=== PATIENT | female | born 1955 | race Caucasian/White ===

== ENCOUNTER 2016-07-16 10:56 | Outpatient (CLI) | payer BC | END 2016-07-16 10:57 | disposition home or self-care (01) | DX: I10 Essential (primary) hypertension (principal); E78.5 Hyperlipidemia, unspecified; E11.9 Type 2 diabetes mellitus without complications ==

== ENCOUNTER 2016-08-18 13:53 | Outpatient (CLI) | payer BC ==
[2016-08-18 19:29] LABS: ALBUMIN/GLOBULIN RATIO 1.2 (1.0-2.2); BILIRUBIN,TOTAL 0.7 mg/dL (0.2-1.0); CALCIUM 9.4 mg/dL (8.5-10.3); CREATININE 1.6 mg/dL (0.4-1.0); POTASSIUM 5.1 mmol/L (3.5-5.0); TOTAL PROTEIN 8.2 g/dL (6.7-8.2)
== END 2016-08-18 13:54 | disposition home or self-care (01) ==
LOC: LAB.N 13:53
PROVIDERS: ATTEND Nurse Practitioner Gerontology
DX: N19 Unspecified kidney failure (principal); E87.5 Hyperkalemia
CPT/HCPCS: 36415; 80053

== ENCOUNTER 2016-10-27 21:30 | Outpatient (CLI) | payer BC ==
[2016-10-27 13:25] LABS: CALCIUM 9.2 mg/dL (8.5-10.3); CREATININE 3.4 mg/dL (0.4-1.0); POTASSIUM 2.8 mmol/L (3.5-5.0)
== END 2016-10-27 21:31 | disposition home or self-care (01) ==
LOC: LAB.N 21:30
PROVIDERS: ATTEND Internal Medicine Nephrology
DX: N05.9 Unspecified nephritic syndrome with unspecified morphologic changes (principal); R06.2 Wheezing; I11.0 Hypertensive heart disease with heart failure
CPT/HCPCS: 36415; 80048; 83880

== ENCOUNTER 2016-11-20 09:34 | Outpatient (CLI) | payer BC ==
[2016-11-20 13:52] LABS: CALCIUM 9.3 mg/dL (8.5-10.3); POTASSIUM 3.9 mmol/L (3.5-5.0)
[2016-11-20 13:55] LABS: HEMOGLOBIN A1C 0.76 g/dL
[2016-11-25 21:52] LABS: TEST RESULT REPORT (())
[2016-11-25 22:41] LABS: ALPHA 1 GLOBULIN 0.5 g/dL (0.2-0.3); ALPHA 2 GLOBULIN 1.3 g/dL (0.5-0.9); BETA 1 GLOBULIN 0.6 g/dL (0.4-0.6); BETA 2 GLOBULIN 0.4 g/dL (0.2-0.5); GAMMA GLOBULIN 0.9 g/dL (0.8-1.7)
[2016-11-26 21:06] LABS: TEST RESULT REPORT (())
== END 2016-11-20 09:35 | disposition home or self-care (01) ==
LOC: LAB.N 09:34
PROVIDERS: ATTEND Internal Medicine Nephrology
DX: N05.9 Unspecified nephritic syndrome with unspecified morphologic changes (principal); E83.30 Disorder of phosphorus metabolism, unspecified; I50.9 Heart failure, unspecified; D47.2 Monoclonal gammopathy; E03.9 Hypothyroidism, unspecified; R80.9 Proteinuria, unspecified; E11.9 Type 2 diabetes mellitus without complications
CPT/HCPCS: 36415; 80048; 81599; 82306; 82570; 83036; 83880; 84155; 84156; 84165; 84166; 84443; 86334

== ENCOUNTER 2016-12-23 08:00 | Outpatient (CLI) | payer BC ==
[2016-12-23 19:35] LABS: CALCIUM 9.4 mg/dL (8.5-10.3); CREATININE 2.3 mg/dL (0.4-1.0); POTASSIUM 4.4 mmol/L (3.5-5.0)
== END 2016-12-23 08:01 | disposition home or self-care (01) ==
LOC: LAB.N 08:00
PROVIDERS: ATTEND Internal Medicine Nephrology
DX: N05.9 Unspecified nephritic syndrome with unspecified morphologic changes (principal)
CPT/HCPCS: 36415; 80048

== ENCOUNTER 2017-01-06 16:40 | Outpatient (CLI) | payer BC | END 2017-01-06 16:41 | disposition EMS.NT | LOC: EMS 16:40 | PROVIDERS: ATTEND Surgery | DX: R53.1 Weakness (principal); W06.XXXA Fall from bed, initial encounter; Y92.003 Bedroom of unspecified non-institutional (private) residence as the place of occurrence of the external cause ==

== ENCOUNTER 2017-03-19 11:26 | Outpatient (CLI) | payer BC ==
[2017-03-19 19:23] LABS: CALCIUM 9.6 mg/dL (8.5-10.3); CREATININE 2.4 mg/dL (0.4-1.0)
== END 2017-03-19 11:27 | disposition home or self-care (01) ==
LOC: LAB.N 11:26
PROVIDERS: ATTEND Internal Medicine Nephrology
DX: N05.9 Unspecified nephritic syndrome with unspecified morphologic changes (principal); I50.9 Heart failure, unspecified
CPT/HCPCS: 36415; 80048; 83880

== ENCOUNTER 2017-06-24 08:00 | Outpatient (CLI) | payer BC, OTHER ==
[2017-06-24 12:18] LABS: CREATININE 2.2 mg/dL (0.4-1.0)
[2017-06-24 12:37] LABS: HB2 TOTAL 13.4 g/dL; HEMOGLOBIN A1C 0.7 g/dL; HEMOGLOBIN A1C % 6.9 % (4.6-6.2)
== END 2017-06-24 08:01 | disposition home or self-care (01) ==
LOC: LAB.N 08:00
PROVIDERS: ATTEND Internal Medicine Nephrology
DX: N05.9 Unspecified nephritic syndrome with unspecified morphologic changes (principal); E11.9 Type 2 diabetes mellitus without complications
CPT/HCPCS: 36415; 80048; 83036

== ENCOUNTER 2017-11-08 08:00 | Outpatient (CLI) | payer OTHER ==
[2017-11-08 19:39] LABS: ALBUMIN 3.4 g/dL (3.2-5.5); ALBUMIN/GLOBULIN RATIO 0.7 (1.0-2.2); BILIRUBIN,TOTAL 0.9 mg/dL (0.2-1.0); CALCIUM 9.4 mg/dL (8.5-10.3); CREATININE 2.4 mg/dL (0.4-1.0); TOTAL PROTEIN 8.6 g/dL (6.7-8.2)
[2017-11-08 19:48] LABS: HB2 TOTAL 13.5 g/dL; HEMOGLOBIN A1C 0.68 g/dL; HEMOGLOBIN A1C % 6.8 % (4.6-6.2)
== END 2017-11-08 08:01 | disposition home or self-care (01) ==
LOC: LAB.N 08:00
PROVIDERS: ATTEND Nurse Practitioner Gerontology
DX: N19 Unspecified kidney failure (principal); E11.9 Type 2 diabetes mellitus without complications; I10 Essential (primary) hypertension
CPT/HCPCS: 36415; 80053; 82553; 83036

== ENCOUNTER 2017-12-29 13:40 | Outpatient (CLI) | payer OTHER ==
[2017-12-29 19:18] LABS: CREATININE 1.8 mg/dL (0.4-1.0)
[2017-12-29 19:28] LABS: CREATININE,URINE 191.8 mg/dL; PROTEIN/CREATININE RATIO,URINE 0.1 (<=0.2)
[2017-12-29 19:51] LABS: HB2 TOTAL 12.2 g/dL; HEMOGLOBIN A1C 0.61 g/dL; HEMOGLOBIN A1C % 6.7 % (4.6-6.2)
== END 2017-12-29 13:41 | disposition home or self-care (01) ==
LOC: LAB.N 13:40
PROVIDERS: ATTEND Internal Medicine Nephrology
DX: N05.9 Unspecified nephritic syndrome with unspecified morphologic changes (principal); E11.9 Type 2 diabetes mellitus without complications; R80.9 Proteinuria, unspecified
CPT/HCPCS: 36415; 80048; 82570; 83036; 84156

== ENCOUNTER 2018-04-18 08:43 | Outpatient (CLI) | payer OTHER | END 2018-04-18 08:44 | disposition EMS.NT | LOC: EMS 08:43 | PROVIDERS: ATTEND Surgery | DX: R53.1 Weakness (principal); M79.605 Pain in left leg; M79.604 Pain in right leg; W05.0XXA Fall from non-moving wheelchair, initial encounter; Y92.009 Unspecified place in unspecified non-institutional (private) residence as the place of occurrence of the external cause ==

== ENCOUNTER 2018-06-29 13:48 | Outpatient (CLI) | payer MEDICARE, OTHER ==
[2018-06-29 19:34] LABS: BUN - BLOOD UREA NITROGEN 36 mg/dL (6-20); CALCIUM 9.2 mg/dL (8.5-10.3); CARBON DIOXIDE - CO2 24 mmol/L (21-32); CHLORIDE 96 mmol/L (101-111); CHOL/HDL RATIO 5.5 (<4.4); CHOLESTEROL 204 mg/dL; CREATININE 2.1 mg/dL (0.4-1.0); GFR - MDRD 24 (>89); GLUCOSE 298 mg/dL (70-100); HDL CHOLESTEROL 37 mg/dL; LDL CHOLESTEROL,CALCULATED 140 mg/dL; LDL/HDL RATIO 3.8 (<4.4); SODIUM 132 mmol/L (135-145); VLDL CHOLESTEROL 27 mg/dL
[2018-06-29 19:38] LABS: HEMOGLOBIN A1C 0.71 g/dL; HEMOGLOBIN A1C % 6.8 % (4.6-6.2)
== END 2018-06-29 23:59 | disposition home or self-care (01) ==
LOC: LAB.N 13:48
PROVIDERS: ATTEND Internal Medicine Nephrology
DX: N05.9 Unspecified nephritic syndrome with unspecified morphologic changes (principal); E11.9 Type 2 diabetes mellitus without complications
CPT/HCPCS: 36415; 80048; 80061; 83036; 83721

== ENCOUNTER 2018-07-01 11:30 | Outpatient (CLI) | payer MEDICARE, OTHER | END 2018-07-01 23:59 | disposition home or self-care (01) | LOC: LAB.R 11:30 | PROVIDERS: ATTEND Podiatrist | DX: E11.622 Type 2 diabetes mellitus with other skin ulcer (principal) | CPT/HCPCS: 87070; 87181; 87205 ==

== ENCOUNTER 2018-07-19 07:56 | Outpatient (CLI) | payer MEDICARE | END 2018-07-19 07:57 | disposition critical access hospital (66) | LOC: EMS 07:56 | PROVIDERS: ATTEND Surgery | DX: R47.81 Slurred speech (principal); R53.1 Weakness | CPT/HCPCS: A0425; A0427 ==

== ENCOUNTER 2018-07-19 08:11 | Emergency (ER) | payer MEDICARE ==
--- NOTE | 2018-07-19 08:43 | ED Physician Documentation ---
PD HPI FOCAL NEURO - Stated complaint Stated Complaint: AMS/ LOW BLOOD SUGAR - Chief complaint Chief Complaint: Neuro - History obtained from History obtained from: Patient, EMS - History of Present Illness Timing - onset: Today (63-year-old woman with type 2 diabetes on a sliding scale regimen without long-acting insulin started having slurred speech and felt like she could not use her hands without altered mental status at 4 AM. EMS was summoned and found her blood sugar to be 40. After the administration of D50 all of her symptoms are gone. She took insulin at 930 last night and admits that she may have taken a larger dose than normal and ate less than normal. 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 - Present Medications Home Medications: Ambulatory Orders Medication Instructions Recorded Confirmed Glipizide [Glucotrol Xl] 10 mg PO BID 08/18/12 04/26/15 Ibuprofen [Motrin] 800 mg PO Q8H PRN #30 tablet 08/18/12 04/26/15 RX: Metoprolol Tartrate 100 mg PO BID 08/18/12 04/26/15 Bimatoprost 0.01% Ophth Dops 1 drops EACHEYE DAILY 04/26/15 04/26/15 [Lumigan 0.01% Ophth Drops] Brimonidine 0.1% Ophth Drops 1 drops OPTH BID 04/26/15 04/26/15 [Alphagan P 0.1% Ophth Drops] Excedrin 500 mg PO Q4H 04/26/15 04/26/15 Glucosam/Chondr-MSM#6/Manganes 2 each PO DAILY 04/26/15 04/26/15 [Glucosamine-Chondroitin Sftgl] Multivitamin [Multivitamins] 1 each PO DAILY 04/26/15 04/26/15 Insulin Aspart (Vial) [NovoLOG] 8 - 10 unit SQ TIDWM 05/29/15 05/29/15 Insulin Glargine,Hum.rec.anlog 80 unit SQ DAILY 05/29/15 05/29/15 [Toujeo Solostar] oxyCODONE/ACET 5/325 [Percocet 5 1 each PO Q4-6H 07/19/18 07/19/18 mg/325 mg] - Allergies Allergies/Adverse Reactions: Allergies Allergy/AdvReac Type Severity Reaction Status Date / Time No Known Drug Allergies Allergy Verified 07/19/18 08:19 - Social History Does the pt smoke?: No Smoking Status: Never smoker Does the pt drink ETOH?: No Does the pt have substance abuse?: No PD ED PE NORMAL - Vitals Vital signs reviewed: Yes - General General: Alert and oriented X 3, No acute distress - HEENT HEENT: PERRL, EOMI - Neck Neck: Supple, no meningeal sign, No bony TTP - Cardiac Cardiac: RRR, No murmur - Respiratory Respiratory: No respiratory distress, Clear bilaterally - Abdomen Abdomen: Non tender - Back Back: No CVA TTP, No spinal TTP - Derm Derm: Normal color, Warm and dry - Extremities Extremities: No edema, No calf tenderness / cord, Other (There is a dime sized heel ulcer on the right foot with purulent base but no cellulitis that is being treated by 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, she requested a culture be done and this was sent.) - Neuro Neuro: Alert and oriented X 3, supervisor 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 2-12 intact, Normal speech NIHSS - Time Time: 08:35 - Level of Consciousness Level of consciousness: (0) Alert, Keenly responsive LOC Questions: (0) Answers both Q's correct LOC Commands: (0) Performs both correctly - Gaze Best Gaze: (0) Normal - Visual Visual: (0) No loss - Facial Palsy Facial Palsy: (0) Normal, symmetrical movement - Motor Arms (both separate) Motor Arm (right): (0) No drift Motor Arm (left): (0) No drift - Motor Legs (both separate) Motor Leg (right): (0) No drift Motor Leg (left): (0) No drift - Limb Ataxia Limb Ataxia: (0) Absent - Sensory Sensory: (0) Normal - Best Language Best Language: (0) No aphasia - Dysarthria Dysarthria: (0) Normal - Extinction and Inattention (formally neg Extinction and inattention: (0) No abnormality - Total Score/Results Total Score/Result: 0 Results - Vitals Vitals: Vital Signs - 24 hr 07/19/18 07/19/18 07/19/18 08:15 09:11 10:19 Temperature 35.7 C L 36.2 C L Heart Rate 80 72 77 Respiratory 21 15 15 Rate Blood Pressure 171/51 H 149/94 H 142/85 H O2 Saturation 91 L 100 100 Oxygen O2 Source Room air - EKG (time done) 0817 Rate: Rate (enter#) (69) Rhythm: NSR [place]: Normal Intervals: Normal [place] QRS: LVH Ischemia: Normal ST segments Computer interpretation: Agree with computer PD MEDICAL DECISION MAKING - ED course ED course: 63-year-old woman presents after a hypoglycemic episode. She is improved and stable on arrival with a normal. She ate breakfast here and was observed without further episodes of hypoglycemia. Departure - Departure Disposition: 01 Home, Self Care Clinical Impression: Hypoglycemia Condition: Good Record reviewed to determine appropriate education?: Yes Instructions: ED Diabetes Hypoglycemia Insulin React Comments: Keep close track of your blood sugars today and eat well. Follow-up with your doctor, next available appointment, also your die welder. Let Dr. Merino know that we did a culture of your right heel today, the results should be done in 48 to 72 hours. Discharge Date/Time: 07/19/18 10:20
[2018-07-19 10:20] VITALS: BP 142/85
== END 2018-07-19 10:20 | disposition home or self-care (01) ==
LOC: EDUNIT# → ED 08:11
DX: E11.649 Type 2 diabetes mellitus with hypoglycemia without coma (principal); L97.418 Non-pressure chronic ulcer of right heel and midfoot with other specified severity; I10 Essential (primary) hypertension; Z79.4 Long term (current) use of insulin
CPT/HCPCS: 87070; 87205; 93005; 99284

== ENCOUNTER 2019-01-04 15:09 | Outpatient (CLI) | payer MEDICARE, OTHER ==
[2019-01-04 19:12] LABS: HGB - HEMOGLOBIN 13.1 g/dL (12.0-16.0); MEAN CORPUSCULAR HEMOGLOBIN 27.2 pg (27.0-31.0); MEAN CORPUSCULAR VOLUME 87.6 fL (81.0-99.0); MEAN PLATELET VOLUME 9.4 fL (7.9-10.8); RED BLOOD COUNT 4.82 10^6/uL (4.20-5.40); RED CELL DISTRIBUTION WIDTH 14.4 % (12.0-15.0); WHITE BLOOD COUNT 10.2 x10^3/uL (4.8-10.8)
[2019-01-04 19:35] LABS: HB2 TOTAL 13.7 g/dL; HEMOGLOBIN A1C 0.69 g/dL; HEMOGLOBIN A1C % 6.8 % (4.6-6.2)
[2019-01-04 19:51] LABS: CREATININE,URINE 73.6 mg/dL; PROTEIN/CREATININE RATIO,URINE 0.3 (<=0.2)
[2019-01-04 19:56] LABS: BUN - BLOOD UREA NITROGEN 39 mg/dL (6-20); CHOL/HDL RATIO 3.2 (<4.4); CHOLESTEROL 117 mg/dL; GFR - MDRD 25 (>89); HDL CHOLESTEROL 37 mg/dL; LDL CHOLESTEROL,CALCULATED 52 mg/dL; LDL/HDL RATIO 1.4 (<4.4); VLDL CHOLESTEROL 28 mg/dL
[2019-01-04 20:16] LABS: CALCIUM 9.4 mg/dL (8.5-10.3); CARBON DIOXIDE - CO2 26 mmol/L (21-32); CHLORIDE 95 mmol/L (101-111); GLUCOSE 252 mg/dL (70-100); SODIUM 135 mmol/L (135-145)
== END 2019-01-04 23:59 | disposition home or self-care (01) ==
LOC: LAB.N 15:09
PROVIDERS: ATTEND Internal Medicine Nephrology
DX: N05.9 Unspecified nephritic syndrome with unspecified morphologic changes (principal); D70.9 Neutropenia, unspecified; D63.1 Anemia in chronic kidney disease; R80.9 Proteinuria, unspecified; E11.9 Type 2 diabetes mellitus without complications; E78.00 Pure hypercholesterolemia, unspecified
CPT/HCPCS: 36415; 80048; 80061; 82570; 83036; 83721; 84156; 85027

== ENCOUNTER 2019-09-13 07:00 | Outpatient (CLI) | payer MEDICARE, OTHER ==
[2019-09-13 19:03] LABS: HB2 TOTAL 12.5 g/dL; HEMOGLOBIN A1C 0.62 g/dL; HEMOGLOBIN A1C % 6.7 % (4.6-6.2)
[2019-09-13 19:09] LABS: CALCIUM 9.5 mg/dL (8.5-10.3); CREATININE 2.2 mg/dL (0.4-1.0)
[2019-09-15 16:54] LABS: ANA SCREEN NEGATIVE (NEGATIVE)
== END 2019-09-13 23:59 | disposition home or self-care (01) ==
LOC: LAB.WCP 07:00
PROVIDERS: ATTEND Internal Medicine Nephrology
DX: L93.2 Other local lupus erythematosus (principal); E11.9 Type 2 diabetes mellitus without complications; N05.9 Unspecified nephritic syndrome with unspecified morphologic changes; N19 Unspecified kidney failure
CPT/HCPCS: 36415; 80048; 83036; 86038

== ENCOUNTER 2019-12-20 06:25 | Outpatient (CLI) | payer MEDICARE, OTHER | END 2019-12-20 06:26 | disposition critical access hospital (66) | LOC: EMS 06:25 | PROVIDERS: ATTEND Surgery | DX: R53.1 Weakness (principal) | CPT/HCPCS: A0425; A0429 ==

== ENCOUNTER 2019-12-20 06:44 | Inpatient (IN) | payer MEDICARE, OTHER ==
--- NOTE | 2019-12-20 07:23 | ED Physician Documentation ---
History of Present Illness - Stated complaint Stated Complaint: WEAKNESS - Chief complaint Chief Complaint: General - History obtained from History obtained from: Patient, EMS - Additonal information Additional information: 64-year-old woman with history of diabetes, hyperlipidemia, chronic osteoarthritic and neuropathic pain. She lives alone, sometimes has to use a walker, sometimes not. She says she frequently gets bouts of weakness, she does not know what causes them. They happen every few weeks. Over the last week she has been increasingly weak, and last night it culminated in being unable to get off the floor by herself. Paramedics were summoned and brought her to the ER. She says she frequently has to call paramedics for a lift assist, but once they get her back up on her feet she does okay. This time was different, being worse than normal. She denies any acute pain, just her chronic issues, no fevers, cough, urinary complaints. 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 - Present Medications Home Medications: Ambulatory Orders Medication Instructions Recorded Confirmed Glipizide [Glucotrol Xl] 10 mg PO BID 08/18/12 04/26/15 Ibuprofen [Motrin] 800 mg PO Q8H PRN #30 tablet 08/18/12 04/26/15 Metoprolol Tartrate 100 mg PO BID 08/18/12 04/26/15 Bimatoprost 0.01% Ophth Dops 1 drops EACHEYE DAILY 04/26/15 04/26/15 [Lumigan 0.01% Ophth Drops] Brimonidine 0.1% Ophth Drops 1 drops OPTH BID 04/26/15 04/26/15 [Alphagan P 0.1% Ophth Drops] Excedrin 500 mg PO Q4H 04/26/15 04/26/15 Glucosam/Chondr-Msm6/Manganese 2 each PO DAILY 04/26/15 04/26/15 [Glucosamine-Chondroitin Sftgl] Multivitamin [Multivitamins] 1 each PO DAILY 04/26/15 04/26/15 Insulin Aspart (Vial) [NovoLOG] 8 - 10 unit SQ TIDWM 05/29/15 05/29/15 Insulin Glargine,Hum.rec.anlog 80 unit SQ DAILY 05/29/15 05/29/15 [Toujeo Solostar] oxyCODONE/ACET 5/325 [Percocet 5 1 each PO Q4-6H 07/19/18 07/19/18 mg/325 mg] - Allergies Allergies/Adverse Reactions: Allergies Allergy/AdvReac Type Severity Reaction Status Date / Time No Known Drug Allergies Allergy Verified 07/19/18 08:19 - Social History Does the pt smoke?: No Smoking Status: Never smoker Does the pt drink ETOH?: No Does the pt have substance abuse?: No PD ED PE NORMAL - Vitals Vital signs reviewed: Yes - General General: Alert and oriented X 3, No acute distress - HEENT HEENT: PERRL, EOMI - Neck Neck: Supple, no meningeal sign, No bony TTP - Cardiac Cardiac: Other - Respiratory Respiratory: No respiratory distress, Clear bilaterally - Abdomen Abdomen: Non tender - Back Back: No CVA TTP, No spinal TTP - Derm Derm: Normal color, Warm and dry - Neuro Neuro: Alert and oriented X 3, No motor deficit, No sensory deficit, Normal speech Eye Opening: Spontaneous Motor: Obeys Commands Verbal: Oriented GCS Score: 15 - Psych Psych: Normal mood, Normal affect Results - Vitals Vitals: Vital Signs - 24 hr 12/20/19 12/20/19 12/20/19 06:57 07:34 07:56 Temperature 99.8 C H 37.5 C 38.4 C H Heart Rate 106 H 101 H Respiratory 24 22 Rate Blood Pressure 155/59 H 139/66 H O2 Saturation 99 100 12/20/19 09:05 Temperature 38.3 C H Heart Rate 95 Respiratory 20 Rate Blood Pressure 133/55 H O2 Saturation 100 Oxygen O2 Source Room air - Labs Labs: Laboratory Tests 12/20/19 12/20/19 12/20/19 07:47 07:47 07:47 WBC 13.1 H RBC 3.73 L Hgb 9.5 L Hct 31.6 L MCV 84.7 MCH 25.5 L MCHC 30.1 L RDW 16.4 H Plt Count 465 H MPV 8.8 Neut # (Auto) 11.7 H Lymph # (Auto) 0.5 L [place] # (Auto) 0.7 Eos # (Auto) 0.0 Baso # (Auto) 0.1 Absolute Nucleated RBC 0.00 Nucleated RBC % 0.0 Sodium 134 L Potassium 4.2 Chloride 92 L Carbon Dioxide 25 Anion Gap 17.0 H BUN 40 H Creatinine 2.0 H Estimated GFR (MDRD) 25 L Glucose 303 H Lactic Acid 1.6 Calcium 9.3 Total Bilirubin 1.5 H AST 14 ALT 10 Alkaline Phosphatase 99 Total Protein 8.7 H Albumin 3.4 Globulin 5.3 H Albumin/Globulin Ratio 0.6 L Urine Color Urine Clarity Urine pH Ur Specific [place] Urine Protein Urine Glucose (UA) Urine Ketones Urine Occult Blood Urine Nitrite Urine Bilirubin Urine Urobilinogen Ur Leukocyte Esterase Urine RBC Urine WBC Ur Squamous Epith Cells Amorphous Sediment Urine Bacteria Urine Culture Comments 12/20/19 08:35 WBC RBC Hgb Hct MCV MCH MCHC RDW Plt Count MPV Neut # (Auto) Lymph # (Auto) [place] # (Auto) Eos # (Auto) Baso # (Auto) Absolute Nucleated RBC Nucleated RBC % Sodium Potassium Chloride Carbon Dioxide Anion Gap BUN Creatinine Estimated GFR (MDRD) Glucose Lactic Acid Calcium Total Bilirubin AST ALT Alkaline Phosphatase Total Protein Albumin Globulin Albumin/Globulin Ratio Urine Color YELLOW Urine Clarity CLEAR Urine pH 5.0 Ur Specific [place] 1.020 Urine Protein TRACE Urine Glucose (UA) 250 H Urine Ketones TRACE Urine Occult Blood SMALL H Urine Nitrite NEGATIVE Urine Bilirubin NEGATIVE Urine Urobilinogen 0.2 (NORMAL) Ur Leukocyte Esterase NEGATIVE Urine RBC 0-5 Urine WBC 0-3 Ur Squamous Epith Cells RARE Squamous Amorphous Sediment Few Urine Bacteria Few Urine Culture Comments NOT INDICATED - Rads (name of study) 1v chest Radiology: EMP read contemporaneously (NAD) PD MEDICAL DECISION MAKING - ED course ED course: 64-year-old woman presents with generalized weakness. Found to have chronic renal insufficiency, elevated white blood cell count and developed a fever in the department but without source. No abdominal tenderness, no urine findings, clear chest x-ray. Case presented to Dr. Decker for admission at 9 AM. At this point she is not septic, there is no source. She is not in shock. We will hold antibiotics. We will check a COVID. Departure - Departure Disposition: ED Place in Observation Clinical Impression: Muscle weakness, SIRS (systemic inflammatory response syndrome) Anemia Qualifiers: Anemia type: unspecified type Qualified Code(s): D64.9 - Anemia, unspecified CRI (chronic renal insufficiency) Qualifiers: Chronic kidney disease stage: stage 4 (severe) Qualified Code(s): N18.4 - Chronic kidney disease, stage 4 (severe) Condition: Stable
[2019-12-20 07:53] LABS: BASOPHILS # (AUTO) 0.1 10^3/uL (0.0-0.1); BASOPHILS % (AUTO) 0.5 %; HGB - HEMOGLOBIN 9.5 g/dL (12.0-16.0); LYMPHOCYTES # (AUTO) 0.5 10^3/uL (1.5-3.5); LYMPHOCYTES % (AUTO) 4.1 %; MEAN CORPUSCULAR HEMOGLOBIN 25.5 pg (27.0-31.0); MEAN CORPUSCULAR HGB CONC 30.1 g/dL (32.0-36.0); MEAN CORPUSCULAR VOLUME 84.7 fL (81.0-99.0); MEAN PLATELET VOLUME 8.8 fL (7.9-10.8); MONOCYTES # (AUTO) 0.7 10^3/uL (0.0-1.0); MONOCYTES % (AUTO) 5.4 %; NEUTROPHILS # (AUTO) 11.7 10^3/uL (1.5-6.6); NEUTROPHILS % (AUTO) 89.4 %; PLT - PLATELET COUNT 465 10^3/uL (130-450); RED BLOOD COUNT 3.73 10^6/uL (4.20-5.40); RED CELL DISTRIBUTION WIDTH 16.4 % (12.0-15.0); WHITE BLOOD COUNT 13.1 x10^3/uL (4.8-10.8)
[2019-12-20 08:04] LABS: ALBUMIN 3.4 g/dL (3.2-5.5); ALBUMIN/GLOBULIN RATIO 0.6 (1.0-2.2); BILIRUBIN,TOTAL 1.5 mg/dL (0.2-1.0); CALCIUM 9.3 mg/dL (8.5-10.3); TOTAL PROTEIN 8.7 g/dL (6.7-8.2)
--- NOTE | 2019-12-20 08:06 | XRAY Report ---
PROCEDURE: Chest 1 View X-Ray INDICATIONS: weak TECHNIQUE: One view of the chest was acquired. COMPARISON: No previous study is available for comparison. FINDINGS: Surgical changes and devices: None. Lungs and pleura: No pleural effusions or pneumothorax. Lungs are clear. Mediastinum: Mediastinal contours appear normal. Heart size is normal. Bones and chest wall: No suspicious bony lesions. Overlying soft tissues appear unremarkable. IMPRESSION: No acute cardiopulmonary abnormality is seen. Reviewed by: Kingsley Toledo MD on 12/20/2019 8:04 AM PDT Approved by: Kingsley Toledo MD on 12/20/2019 8:04 AM PDT Station ID: [id number]
[2019-12-20 08:45] LABS: GLUCOSE, URINE (UA) 250 mg/dL (NEGATIVE); KETONES,URINE (UA) TRACE mg/dL (NEGATIVE); LEUKOCYTE ESTERASE, URINE NEGATIVE (NEGATIVE); NITRITE,URINE NEGATIVE (NEGATIVE); OCCULT BLOOD,URINE SMALL (NEGATIVE); PROTEIN,URINE TRACE mg/dL (NEGATIVE); UROBILINOGEN,URINE 0.2 (NORMAL) E.U./dL (NORMAL)
[2019-12-20 08:46] LABS: CLARITY,URINE CLEAR (CLEAR)
[2019-12-20 08:50] LABS: BILIRUBIN,URINE NEGATIVE (NEGATIVE); ICTOTEST,URINE NEGATIVE
[2019-12-20 08:55] LABS: RBC,URINE 0-5 /HPF (0-5); SQUAMOUS EPITHELIAL CELL,UR RARE Squamous (<= Few)
[2019-12-20 08:56] LABS: AMORPHOUS SEDIMENT,UR Few /LPF; BACTERIA,URINE Few /HPF (None Seen)
[2019-12-20] MEDS ORDERED: SODIUM CHLORIDE FLUSH 0.9% 10 ML SYRINGE IVP PRN (09:09)
[2019-12-20] MEDS ORDERED: ONDANSETRON 4 MG/2 ML VIAL IVP PRN (09:14)
[2019-12-20] MEDS ORDERED: LACTATED RINGERS 1,000 ML IV ONE (09:21)
--- NOTE | 2019-12-20 09:23 | HISTORY & PHYSICAL EXAMINATION ---
Chief Complaint - Chief Complaint Chief Complaint: Weakness History of Present Illness - Admitted From Admitted From:: Home - History Obtained From Records Reviewed: Yes History obtained from: Patient, ER Physician, EMR - History of Present Illness HPI Comment/Other: This is a very pleasant 64-year-old female with a past medical history significant for insulin-dependent diabetes, hypertension, peripheral neuropathy, chronic kidney disease stage IV, glaucoma who presents today complaining of lower extremity weakness. She states this is been going on for the past few months intermittently. The episodes would normally lasts a few days and then she would return back to her usual strength. She states this would normally occur once every 2 months or so. Today she felt more weak than normal and was unable to get herself out of bed. She would normally call paramedics for assistance and once they would help her get up then she would do well on her own but today she was much weaker than usual. She reports muscle weakness in her bilateral lower extremities. She states she walks with a walker at baseline. She does have chronic neuropathy for which she takes Lyrica. She reports this is not worse than usual. She reports no dysuria, urgency, frequency. She denies any fevers or chills. Reports no chest pain, dyspnea, cough. Reports no recent sick contacts. She states she has been home for the past few months and she has a cousin who will deliver her food every 6 weeks. She last saw her cousin about 3 weeks ago. She reports no obvious wounds or lesions. In the emergency department, she was found to be febrile with a temperature of 38.4 C. Her heart is 101. Her blood pressure is 139/66. She was not tachypneic and saturating well on room air. Labs were significant for a white count of 13.1 with a left shift. Her hemoglobin was 9.5. Her creatinine was at 2.0 which is her baseline. Her lactic acid was normal at 1.6. Her urinalysis and chest x-ray were unremarkable. Given her weakness and fever, medicine was consulted for admission. I did discuss goals of care with the patient and she would like to be a DNR. History - Past Medical History Cardiovascular: reports: Hypertension, High cholesterol Respiratory: reports: None Neuro: reports: Peripheral neuropathy Endocrine/Autoimmune: reports: Type 2 diabetes GI: reports: None CATCHER PLUG: reports: None : reports: Renal insuffiency, Kidney stones HEENT: reports: Glaucoma Musculoskeletal: reports: Osteoarthritis Derm: reports: None MRSA Hx?: No - Past Surgical History /CATCHER PLUG: reports: Oophrectomy - Family & Social History Family History Comment/Other: She reports her father had rheumatoid arthritis. Living arrangement: At home Living Situation: Alone Social History Notes: She lives at home alone. He has never smoked and does not drink alcohol. She has a cousin who will visit her every 6 weeks to drop off groceries and food. - POLST Patient has POLST: No Meds/Allgy - Home Medications Home Medications: Ambulatory Orders Medication Instructions Recorded Confirmed Glipizide [Glucotrol Xl] 10 mg PO BID 08/18/12 12/20/19 Ibuprofen [Motrin] 800 mg PO Q8H PRN #30 tablet 08/18/12 04/26/15 Metoprolol Tartrate 100 mg PO BID 08/18/12 04/26/15 Brimonidine 0.1% Ophth Drops 1 drops OPTH BID 04/26/15 12/20/19 [Alphagan P 0.1% Ophth Drops] Excedrin 2 tab PO BID 04/26/15 12/20/19 Glucosam/Chondr-Msm6/Manganese 2 each PO DAILY 04/26/15 04/26/15 [Glucosamine-Chondroitin Sftgl] Multivitamin [Multivitamins] 1 each PO DAILY 04/26/15 04/26/15 Insulin Aspart (Vial) [NovoLOG] 8 - 10 unit SQ TIDWM 05/29/15 12/20/19 Insulin Glargine,Hum.rec.anlog 80 unit SQ DAILY 05/29/15 05/29/15 [Toujeo Solostar] oxyCODONE/ACET 5/325 [Percocet 5 1 each PO Q4-6H 07/19/18 12/20/19 mg/325 mg] Atorvastatin Calcium 20 mg PO DAILY PM 12/20/19 12/20/19 Dorzolamide HCl/Pf [Dorzolamide 2% 1 drops OP BID 12/20/19 12/20/19 Eye Drop] Doxylamine Succinate [Unisom] 25 mg PO DAILY PM 12/20/19 12/20/19 Furosemide 40 mg PO TID 09/30/20 09/30/20 Latanoprost 1 drops OP DAILY PM 12/20/19 12/20/19 Pregabalin 25 mg PO BID 12/20/19 12/20/19 - Allergies Allergies/Adverse Reactions: Allergies Allergy/AdvReac Type Severity Reaction Status Date / Time No Known Drug Allergies Allergy Verified 07/19/18 08:19 Prior Level of Functionality: She uses a walker to ambulate. She is relatively independent with her ADLs. She does have assistance with delivery of groceries to her house. Exam - Vital Signs Reviewed Vital Signs: Yes Vital Signs: Vital Signs x48h Temp Pulse Resp BP Pulse Ox 12/20/19 09:05 38.3 C H 95 20 133/55 H 100 12/20/19 07:56 38.4 C H 101 H 22 139/66 H 100 12/20/19 07:34 37.5 C 12/20/19 06:57 99.8 C H 106 H 24 155/59 H 99 - Physical Exam General Appearance: positive: No acute distress, Alert Eyes Bilateral: positive: Normal inspection, No scleral icterus ENT: positive: ENT inspection nml, Pharynx nml. negative: Pharyngeal erythema Neck: positive: Nml inspection Respiratory: positive: No respiratory distress. negative: Wheezes, Rales Cardiovascular: positive: Regular rate & rhythm. negative: Irregularly irregular, Tachycardia, Systolic murmur Abdomen: positive: Non-tender, No distention, Other (Multiple healed scars noted over abdomen. No obvious erythema.). negative: Tenderness, Guarding, Rebound Skin: positive: Warm, Dry, Other (There is some mild erythema in her suprapubic fold consistent with a candidal infection.) Extremities: positive: Full ROM, Pedal edema (Trace edema in bilateral lower extremities.) Neurologic/Psychiatric: positive: Oriented x3, Other (He is able to move all 4 extremities. No obvious focal deficits. Her lower extremity movement is limited secondary to pain.). negative: Disoriented to person, Disoriented to place, Disoriented to time Conclusion/Plan - Problem List (1) Fever Conclusion/Plan: Do not feel febrile at home but she is febrile here in the hospital and her white count is slightly elevated. Her lactic acid is normal. Her urinalysis and chest x-ray are unremarkable. There is been no obvious source of infection so we will hold off antibiotics for the meantime. Suspect this is likely contributing to her weakness. We will monitor her fever curve and monitor her white count. We will check her for COVID-19 and influenza. If she spikes another fever we will start her on empiric antibiotics. Follow-up blood cultures. (2) Weakness Conclusion/Plan: This appears to be predominantly lower extremity weakness but do not suspect this is neurologic in nature based off of exam. This likely related to her fever and possible infection. We will encourage her to get up out of bed 3 times a day. Will consult physical therapy if it is felt necessary. We will check CKs to rule out myositis. We will hold off on imaging for the time being unless he develops any neurologic deficits. Check troponin. (3) Chronic kidney disease, stage IV (severe) Conclusion/Plan: Her renal function is stable and at baseline. This is likely secondary to her diabetes. She follows with Dr. Sweet of nephrology. (4) Insulin dependent diabetes mellitus Conclusion/Plan: Blood glucose elevated at greater than 200. We will resume her home insulin dose once it is confirmed by pharmacy. We will place her on sliding scale and carb controlled diet. Check A1c in the morning. (5) Anemia of chronic disease Conclusion/Plan: This is likely anemia of chronic disease. There is no evidence of bleeding. Will check iron studies and ferritin. Monitor hemoglobin. (6) Peripheral neuropathy Conclusion/Plan: This appears be stable and at baseline. We will continue her home Lyrica and Percocet. (7) Glaucoma Conclusion/Plan: Stable. Continue home eyedrops. - Lab Results Lab results reviewed: Yes Fish Bones: 12/20/19 07:47 12/20/19 07:47 - Diagnostic Imaging Results Diagnostic Imaging Results: positive: Final report reviewed Core Measures - Anticipated LOS I expect patient to be DC'd or transferred within 96 hours.: Yes - Issues Hospital Issues and Management Plan: This 64-year-old female presents with weakness found to have a fever. No obvious source of infection at this time. Will place in observation for further infectious work-up. - DVT/VTE - Prophylaxis VTE/DVT Prophylaxis med ordered at admit?: Yes
[2019-12-20 10:02] LABS: % IRON SATURATION 5 % (20-50); CK- CREATINE KINASE 64 IU/L (22-269); IRON 13 ug/dL (28-170); TOTAL IRON BINDING CAPACITY 260 ug/dL (250-450); TRANSFERRIN 186 mg/dL (192-382)
[2019-12-20 10:27] LABS: THYROID STIMULATING HORMONE 1.59 uIU/mL (0.34-5.60)
[2019-12-20 10:33] LABS: FERRITIN 356.8 ng/mL (11.0-306.8)
[2019-12-20] MEDS: INSULIN ASPART 300 UNIT/3 ML PEN SUBQ SCH ×3 (11:47→21:02)
[2019-12-20] MEDS: LACTATED RINGERS 1,000 ML IV SCH ×2 (11:49→22:03)
[2019-12-20] MEDS: NYSTATIN POWDER 15 GM TOP SCH ×2 (14:35→20:48)
[2019-12-20] MEDS ORDERED: oxyCODONE/ACET 5/325 Prepack 4 PO PRN (14:49)
[2019-12-20] MEDS ORDERED: oxyCODONE 5 MG TABLET PO PRN (14:58)
[2019-12-20] MEDS: oxyCODONE 5 MG TABLET PO PRN ×2 (15:07→22:03)
[2019-12-20] MEDS: ACETAMINOPHEN 325 MG TABLET PO PRN ×2 (15:08→22:03)
[2019-12-20] MEDS: SODIUM CHLORIDE FLUSH 0.9% 10 ML SYRINGE IVP SCH (17:00)
[2019-12-20] MEDS ORDERED: INSULIN REGULAR HUMAN 100 UNIT/1 ML 10 ML MDV SUBQ STA (18:31)
[2019-12-20] MEDS: HEPARIN 5,000 UNIT/ML VIAL SUBQ SCH (20:47)
[2019-12-20] MEDS: ATORVASTATIN 10 MG TABLET PO SCH (20:48)
[2019-12-20] MEDS: PREGABALIN 25 MG CAPSULE PO SCH (20:49)
[2019-12-20] MEDS: BRIMONIDINE 0.15% OPHTH DROPS 5 ML EACHEYE SCH (20:52)
[2019-12-20] MEDS: DORZOLAMIDE 2% OPHTH DROPS EACHEYE SCH (20:52)
[2019-12-20] MEDS: LATANOPROST 0.005% EACHEYE SCH (20:53)
[2019-12-21] MEDS: SODIUM CHLORIDE FLUSH 0.9% 10 ML SYRINGE IVP SCH ×3 (01:30→16:09)
[2019-12-21 05:26] LABS: BASOPHILS % (AUTO) 0.4 %; EOSINOPHILS # (AUTO) 0.1 10^3/uL (0.0-0.7); EOSINOPHILS % (AUTO) 1.3 %; HGB - HEMOGLOBIN 7.6 g/dL (12.0-16.0); LYMPHOCYTES # (AUTO) 1.4 10^3/uL (1.5-3.5); MEAN CORPUSCULAR HEMOGLOBIN 25.4 pg (27.0-31.0); MEAN CORPUSCULAR VOLUME 84.6 fL (81.0-99.0); MEAN PLATELET VOLUME 9.2 fL (7.9-10.8); MONOCYTES # (AUTO) 0.9 10^3/uL (0.0-1.0); MONOCYTES % (AUTO) 8.7 %; NEUTROPHILS # (AUTO) 7.5 10^3/uL (1.5-6.6); PLT - PLATELET COUNT 384 10^3/uL (130-450); RED BLOOD COUNT 2.99 10^6/uL (4.20-5.40); RED CELL DISTRIBUTION WIDTH 16.8 % (12.0-15.0)
[2019-12-21 05:37] LABS: CALCIUM 8.7 mg/dL (8.5-10.3); CREATININE 1.6 mg/dL (0.4-1.0); PHOSPHORUS 2.9 mg/dL (2.5-4.6)
[2019-12-21] MEDS: HEPARIN 5,000 UNIT/ML VIAL SUBQ SCH ×2 (09:54→21:04)
[2019-12-21] MEDS: ACETAMINOPHEN 325 MG TABLET PO PRN ×2 (10:19→17:17)
[2019-12-21] MEDS: oxyCODONE 5 MG TABLET PO PRN ×2 (10:20→17:17)
[2019-12-21] MEDS: FERROUS SULFATE 325 MG TABLET PO SCH (10:20)
[2019-12-21] MEDS: PREGABALIN 25 MG CAPSULE PO SCH ×2 (10:21→21:01)
[2019-12-21] MEDS: INSULIN ASPART 300 UNIT/3 ML PEN SUBQ SCH ×5 (10:24→21:05)
[2019-12-21] MEDS: BRIMONIDINE 0.15% OPHTH DROPS 5 ML EACHEYE SCH (10:25)
[2019-12-21] MEDS: NYSTATIN POWDER 15 GM TOP SCH ×2 (10:25→21:06)
[2019-12-21] MEDS: DORZOLAMIDE 2% OPHTH DROPS EACHEYE SCH (10:26)
[2019-12-21] MEDS: LACTATED RINGERS 1,000 ML IV SCH ×2 (10:41→21:01)
--- NOTE | 2019-12-21 12:03 | PHARMACY PROGRESS NOTE ---
- Best Possible Medication History Admit Date and Time: 12/20/19908 Processed by: Pharmacy Medication History completed: Yes Patient Interview: Completed Secondary Source(s): Physician records (PATIENT INTERVIEWED BY PHARMACY. PATIENT ABLE TO CONFIRM HOME MEDICATIONS ), Pharmacy records, Insurance records As the person ultimately responsible for medication therapy, providers are able to order a medication from an existing home medication list in [facility] via the "Reconcile Routine" prior to Confirmation of that medication by ict support and test engineers. Such practice is discouraged except when the physician, in their clinical judgment, deems that a medical need exists for a medication without regard to previous use.
[2019-12-21 12:29] LABS: HEMOGLOBIN A1c% 6.7 % (4.27-6.07)
[2019-12-21] MEDS ORDERED: VANCOMYCIN INJ 2 GM, VANCOMYCIN INJ 500 MG in SODIUM CHLORIDE 0.9% 500 ML IV SCH (13:00)
[2019-12-21] MEDS: BRIMONIDINE 0.2% EACHEYE SCH ×2 (13:50→21:07)
--- NOTE | 2019-12-21 14:24 | PROVIDER PROGRESS NOTE ---
Subjective - Prog Note Date Prog Note Date: 12/21/19 - Subjective Subjective: She reports still feeling weak. She was able to get the side of the bed today but did not do as well as she normally was from a strength perspective. Continues to deny any fevers, chills, chest pain, dyspnea, abdominal pain, nausea, vomiting. Current Medications - Current Medications Current Medications: Active Medications Acetaminophen (Tylenol) 650 mg PO Q4HR PRN PRN Reason: Pain 1 to 4 Last Admin: 12/21/19 10:19 Dose: 650 mg Documented by: Atorvastatin Calcium (Lipitor) 20 mg PO QPM [facility] Last Admin: 12/20/19 20:48 Dose: 20 mg Documented by: Brimonidine Tartrate (Alphagan P 0.2% Ophth Drops) 1 drops EACHEYE BID [facility] Last Admin: 12/21/19 13:50 Dose: 1 drops Documented by: Dorzolamide/Timolol (Cosopt) 1 drops EACHEYE BID [facility] Ferrous Sulfate (Feosol) 325 mg PO DAILYWM [facility] Last Admin: 12/21/19 10:20 Dose: 325 mg Documented by: Heparin Sodium (Porcine) () 5,000 unit SUBQ BID [facility] Last Admin: 12/21/19 09:54 Dose: 5,000 unit Documented by: Lactated Ringer's (Lr) 1,000 mls @ 100 mls/hr IV .Q10H [facility] Last Admin: 12/21/19 10:41 Dose: 100 mls/hr Documented by: Vancomycin HCl 2 gm/Vancomycin HCl 500 mg/ Sodium Chloride 500 mls @ 250 mls/hr IV ONCE [facility] Stop: 12/21/19 17:00 Last Admin: 12/21/19 13:49 Dose: 250 mls/hr Documented by: Vancomycin HCl 2 gm/ Sodium (Chloride) 500 mls @ 250 mls/hr IV Q24H [facility] Insulin Aspart (Novolog) 2 - 10 unit SUBQ 0800,1200,1700,2100 [facility]; Protocol Last Admin: 12/21/19 13:51 Dose: 8 unit Documented by: Insulin Aspart (Novolog) 30 unit SUBQ QDDINNER [facility]; Protocol Insulin Aspart (Novolog) 30 unit SUBQ QDBREAKFAST [facility]; Protocol Latanoprost (Xalatan Ophth Drops) 1 drops EACHEYE QPM [facility] Last Admin: 12/20/19 20:53 Dose: 1 drops Documented by: Nystatin (Nystop) 1 applic TOP BID [facility] Last Admin: 12/21/19 10:25 Dose: 1 applic Documented by: Ondansetron HCl (Zofran Inj) 4 mg IVP Q6HR PRN PRN Reason: Nausea / Vomiting Oxycodone HCl (Roxicodone) 5 mg PO Q6H PRN PRN Reason: PAIN Last Admin: 12/21/19 10:20 Dose: 5 mg Documented by: Pregabalin (Lyrica) 25 mg PO BID [facility] Last Admin: 12/21/19 10:21 Dose: 25 mg Documented by: Sodium Chloride (Normal Saline Flush 0.9%) 10 ml IVP PRN PRN PRN Reason: NEEDED PER PROVIDER ORDERS Sodium Chloride (Normal Saline Flush 0.9%) 10 ml IVP 0100,0900,1700 [facility] Last Admin: 12/21/19 10:25 Dose: 10 ml Documented by: Glipizide [Glucotrol Xl] 10 mg PO BID 08/18/12 Aspirin/Acetaminophen/Caffeine [Excedrin Migraine Caplet] 2 tab PO BID PRN 04/26/15 Glucosam/Chondr-Msm6/Manganese [Glucosamine-Chondroitin Sftgl] 2 each PO DAILY 04/26/15 Multivitamin [Multivitamins] 1 each PO DAILY 04/26/15 oxyCODONE/ACET 5/325 [Percocet 5 mg/325 mg] 1 each PO Q4-6H PRN 07/19/18 Atorvastatin Calcium 20 mg PO DAILY PM 12/20/19 Doxylamine Succinate [Unisom] 25 mg PO DAILY PM 12/20/19 Latanoprost 1 drops OP DAILY PM 12/20/19 Pregabalin 25 mg PO BID 12/20/19 Brimonidine 0.2% Ophth Drops [Alphagan P 0.2% Ophth Drops] 1 drops EACHEYE BID 12/21/19 Carvedilol [Coreg] 25 mg PO BID 12/21/19 Dorzolamide HCl/Timolol Maleat [Dorzolamide-Timolol Eye Drops] 1 drops EACHEYE BID 12/21/19 Furosemide 80 mg PO DAILY 12/21/19 Insulin Regular Human [NovoLIN R] 30 - 50 units SQ BIDWM 12/21/19 Objective - Vital Signs/Intake & Output Reviewed Vital Signs: Yes Vital Signs: Vital Signs x48h Temp Pulse Pulse Resp BP Pulse Ox 12/21/19 13:52 36.5 C 84 20 143/58 H 97 12/21/19 12:55 36.8 C 84 20 100 12/21/19 09:00 36.8 C 81 20 134/70 H 98 Intake & Output: Intake & Output 12/18/19 12/19/19 12/20/19 12/21/19 23:59 23:59 23:59 23:59 Intake Total 1680 1240 Output Total 725 775 Balance 955 465 - Objective General Appearance: positive: No acute distress, Alert Eyes Bilateral: positive: Normal inspection, Conjunctivae nml ENT: positive: ENT inspection nml Neck: positive: Nml inspection Respiratory: positive: No respiratory distress, Other (Diminished). negative: Wheezes, Rales Cardiovascular: positive: Regular rate & rhythm, No murmur. negative: Tachycardia, Systolic murmur Abdomen: positive: Non-tender, No distention. negative: Tenderness, Guarding, Rebound Skin: positive: Warm, Dry. negative: Embolic lesions Extremities: positive: Pedal edema (Trace edema in bilateral lower extremities.) Neurologic/Psychiatric: positive: Oriented x3. negative: Disoriented to person, Disoriented to place - Lab Results Fish Bones: 12/21/19 05:10 12/21/19 05:10 Other Labs: Lab Results x24hrs 12/21/19 12/21/19 12/21/19 Range/Units 11:17 08:53 08:00 WBC (4.8-10.8) x10^3/uL RBC (4.20-5.40) 10^6/uL Hgb (12.0-16.0) g/dL Hct (37.0-47.0) % MCV (81.0-99.0) fL MCH (27.0-31.0) pg MCHC (32.0-36.0) g/dL RDW (12.0-15.0) % Plt Count (130-450) 10^3/uL MPV (7.9-10.8) fL Neut # (Auto) (1.5-6.6) 10^3/uL Lymph # (Auto) (1.5-3.5) 10^3/uL [place] # (Auto) (0.0-1.0) 10^3/uL Eos # (Auto) (0.0-0.7) 10^3/uL Baso # (Auto) (0.0-0.1) 10^3/uL Absolute Nucleated RBC x10^3/uL Nucleated RBC % /100WBC Sodium (135-145) mmol/L Potassium (3.5-5.0) mmol/L Chloride (101-111) mmol/L Carbon Dioxide (21-32) mmol/L Anion Gap (6-13) BUN (6-20) mg/dL Creatinine (0.4-1.0) mg/dL Estimated GFR (MDRD) (>89) Glucose (70-100) mg/dL POC Whole Bld Glucose 290 H 141 H (70 - 100) mg/dL Estimat Average Glucose (70-100) mg/dL Hemoglobin A1c % (4.27-6.07) % Calcium (8.5-10.3) mg/dL Phosphorus (2.5-4.6) mg/dL Magnesium (1.7-2.8) mg/dL Troponin I High Sens (2.3-14.8) ng/L Influenza A (Rapid) (Negative) Influenza B (Rapid) (Negative) Blood Type A POSITIVE Blood Type Recheck Antibody Screen NEGATIVE 12/21/19 12/21/19 12/21/19 Range/Units 05:10 05:10 05:10 WBC (4.8-10.8) x10^3/uL RBC (4.20-5.40) 10^6/uL Hgb (12.0-16.0) g/dL Hct (37.0-47.0) % MCV (81.0-99.0) fL MCH (27.0-31.0) pg MCHC (32.0-36.0) g/dL RDW (12.0-15.0) % Plt Count (130-450) 10^3/uL MPV (7.9-10.8) fL Neut # (Auto) (1.5-6.6) 10^3/uL Lymph # (Auto) (1.5-3.5) 10^3/uL [place] # (Auto) (0.0-1.0) 10^3/uL Eos # (Auto) (0.0-0.7) 10^3/uL Baso # (Auto) (0.0-0.1) 10^3/uL Absolute Nucleated RBC x10^3/uL Nucleated RBC % /100WBC Sodium 132 L (135-145) mmol/L Potassium 3.7 (3.5-5.0) mmol/L Chloride 96 L (101-111) mmol/L Carbon Dioxide 26 (21-32) mmol/L Anion Gap 10.0 (6-13) BUN 40 H (6-20) mg/dL Creatinine 1.6 H (0.4-1.0) mg/dL Estimated GFR (MDRD) 32 L (>89) Glucose 155 H (70-100) mg/dL POC Whole Bld Glucose (70 - 100) mg/dL Estimat Average Glucose 146 H (70-100) mg/dL Hemoglobin A1c % 6.7 H (4.27-6.07) % Calcium 8.7 (8.5-10.3) mg/dL Phosphorus 2.9 (2.5-4.6) mg/dL Magnesium 2.0 (1.7-2.8) mg/dL Troponin I High Sens (2.3-14.8) ng/L Influenza A (Rapid) (Negative) Influenza B (Rapid) (Negative) Blood Type Blood Type Recheck A POSITIVE Antibody Screen 12/21/19 12/20/19 12/20/19 Range/Units 05:10 21:01 18:45 WBC 10.0 (4.8-10.8) x10^3/uL RBC 2.99 L (4.20-5.40) 10^6/uL Hgb 7.6 L (12.0-16.0) g/dL Hct 25.3 L (37.0-47.0) % MCV 84.6 (81.0-99.0) fL MCH 25.4 L (27.0-31.0) pg MCHC 30.0 L (32.0-36.0) g/dL RDW 16.8 H (12.0-15.0) % Plt Count 384 (130-450) 10^3/uL MPV 9.2 (7.9-10.8) fL Neut # (Auto) 7.5 H (1.5-6.6) 10^3/uL Lymph # (Auto) 1.4 L (1.5-3.5) 10^3/uL [place] # (Auto) 0.9 (0.0-1.0) 10^3/uL Eos # (Auto) 0.1 (0.0-0.7) 10^3/uL Baso # (Auto) 0.0 (0.0-0.1) 10^3/uL Absolute Nucleated RBC 0.00 x10^3/uL Nucleated RBC % 0.0 /100WBC Sodium (135-145) mmol/L Potassium (3.5-5.0) mmol/L Chloride (101-111) mmol/L Carbon Dioxide (21-32) mmol/L Anion Gap (6-13) BUN (6-20) mg/dL Creatinine (0.4-1.0) mg/dL Estimated GFR (MDRD) (>89) Glucose (70-100) mg/dL POC Whole Bld Glucose 215 H (70 - 100) mg/dL Estimat Average Glucose (70-100) mg/dL Hemoglobin A1c % (4.27-6.07) % Calcium (8.5-10.3) mg/dL Phosphorus (2.5-4.6) mg/dL Magnesium (1.7-2.8) mg/dL Troponin I High Sens 16.5 H* (2.3-14.8) ng/L Influenza A (Rapid) (Negative) Influenza B (Rapid) (Negative) Blood Type Blood Type Recheck Antibody Screen 12/20/19 12/20/19 12/20/19 Range/Units 18:39 16:33 14:30 WBC (4.8-10.8) x10^3/uL RBC (4.20-5.40) 10^6/uL Hgb (12.0-16.0) g/dL Hct (37.0-47.0) % MCV (81.0-99.0) fL MCH (27.0-31.0) pg MCHC (32.0-36.0) g/dL RDW (12.0-15.0) % Plt Count (130-450) 10^3/uL MPV (7.9-10.8) fL Neut # (Auto) (1.5-6.6) 10^3/uL Lymph # (Auto) (1.5-3.5) 10^3/uL [place] # (Auto) (0.0-1.0) 10^3/uL Eos # (Auto) (0.0-0.7) 10^3/uL Baso # (Auto) (0.0-0.1) 10^3/uL Absolute Nucleated RBC x10^3/uL Nucleated RBC % /100WBC Sodium (135-145) mmol/L Potassium (3.5-5.0) mmol/L Chloride (101-111) mmol/L Carbon Dioxide (21-32) mmol/L Anion Gap (6-13) BUN (6-20) mg/dL Creatinine (0.4-1.0) mg/dL Estimated GFR (MDRD) (>89) Glucose (70-100) mg/dL POC Whole Bld Glucose 295 H 357 H (70 - 100) mg/dL Estimat Average Glucose (70-100) mg/dL Hemoglobin A1c % (4.27-6.07) % Calcium (8.5-10.3) mg/dL Phosphorus (2.5-4.6) mg/dL Magnesium (1.7-2.8) mg/dL Troponin I High Sens (2.3-14.8) ng/L Influenza A (Rapid) Negative (Negative) Influenza B (Rapid) Negative (Negative) Blood Type Blood Type Recheck Antibody Screen 12/20/19 12/20/19 Range/Units 13:54 11:33 WBC (4.8-10.8) x10^3/uL RBC (4.20-5.40) 10^6/uL Hgb (12.0-16.0) g/dL Hct (37.0-47.0) % MCV (81.0-99.0) fL MCH (27.0-31.0) pg MCHC (32.0-36.0) g/dL RDW (12.0-15.0) % Plt Count (130-450) 10^3/uL MPV (7.9-10.8) fL Neut # (Auto) (1.5-6.6) 10^3/uL Lymph # (Auto) (1.5-3.5) 10^3/uL [place] # (Auto) (0.0-1.0) 10^3/uL Eos # (Auto) (0.0-0.7) 10^3/uL Baso # (Auto) (0.0-0.1) 10^3/uL Absolute Nucleated RBC x10^3/uL Nucleated RBC % /100WBC Sodium (135-145) mmol/L Potassium (3.5-5.0) mmol/L Chloride (101-111) mmol/L Carbon Dioxide (21-32) mmol/L Anion Gap (6-13) BUN (6-20) mg/dL Creatinine (0.4-1.0) mg/dL Estimated GFR (MDRD) (>89) Glucose (70-100) mg/dL POC Whole Bld Glucose 257 H (70 - 100) mg/dL Estimat Average Glucose (70-100) mg/dL Hemoglobin A1c % (4.27-6.07) % Calcium (8.5-10.3) mg/dL Phosphorus (2.5-4.6) mg/dL Magnesium (1.7-2.8) mg/dL Troponin I High Sens 17.1 H* (2.3-14.8) ng/L Influenza A (Rapid) (Negative) Influenza B (Rapid) (Negative) Blood Type Blood Type Recheck Antibody Screen - Diagnostic Imaging Diagnostic Imaging Results: positive: Final report reviewed ABX Reporting Has patient been on IV antibiotics over the past 48 hours?: No Assessment/Plan - Problem List (1) Fever Impression: 1 of her blood cultures is positive for gram-positive cocci. Her chest x-ray and urinalysis extensive infection. She has been afebrile since hospitalization but she will be started on antibiotics given the bacteremia. Influenza is n egative. COVID-19 is pending. Given her fever and the positive blood cultures we will assume this is a true infection and will start her on IV vancomycin. Continue to monitor for fevers. (2) Gram-positive bacteremia Impression: One of her blood cultures is growing gram-positive cocci in clusters. The other set has been negative to date. Given her fever on admission and her weakness, we will assume this is a true infection at this time. She has been afebrile throughout her hospitalization and her white count has actually normalized. There is no obvious source of infection. We will start her empirically on IV vancomycin. We will follow-up her cultures. Will obtain echocardiogram. (3) Weakness Impression: This appears to be secondary to her suspected infection. Her CK is within normal limits. There is no suspicion for noted deficit at this time. She did have difficulty ambulating with nursing today and so we will consult physical therapy. She may benefit from home health on discharge. Her weakness should improve as we treat the underlying infection. (4) Anemia of chronic disease Impression: Hemoglobin did decrease today 7.5. Her iron studies are suggestive of anemia of chronic disease but given her percent saturation less than 20%, we will start h er on oral iron. Will order stool occult to check for bleeding as if this is positive then she will need an endoscopy. I suspect her drop in hemoglobin was dilutional but she is quite anemic compared to her prior labs. We will continue to monitor for evidence of bleeding. (5) Chronic kidney disease, stage IV (severe) Impression: Her baseline creatinine is around 2.0 and today it is 1.6. This likely improved due to the IV fluids she received. Her CKD is likely secondary to her diabetes. We will continue to monitor her renal function and urine output. (6) Insulin dependent diabetes mellitus Impression: Her A1c is less than 7%. We will place her on a carb controlled diet and we will put her back on Novolin are 30 units twice daily which she has been taking at home. (7) Peripheral neuropathy Impression: This is likely contributing to her lower extremity weakness. We will continue her home Lyrica and Percocet. (8) Glaucoma Impression: Stable. Continue home eyedrops.
[2019-12-21] MEDS: ATORVASTATIN 10 MG TABLET PO SCH (21:01)
[2019-12-21] MEDS: TIMOLOL EACHEYE SCH (21:06)
[2019-12-21] MEDS: DORZOLAMIDE EACHEYE SCH (21:06)
[2019-12-21] MEDS: LATANOPROST 0.005% EACHEYE SCH (21:07)
[2019-12-22] MEDS: ACETAMINOPHEN 325 MG TABLET PO PRN ×5 (00:49→21:56)
[2019-12-22] MEDS: oxyCODONE 5 MG TABLET PO PRN ×5 (00:50→21:56)
[2019-12-22] MEDS: SODIUM CHLORIDE FLUSH 0.9% 10 ML SYRINGE IVP SCH ×3 (00:50→16:54)
[2019-12-22 05:45] LABS: BASOPHILS % (AUTO) 0.3 %; EOSINOPHILS # (AUTO) 0.1 10^3/uL (0.0-0.7); EOSINOPHILS % (AUTO) 1.2 %; HGB - HEMOGLOBIN 7.1 g/dL (12.0-16.0); LYMPHOCYTES # (AUTO) 1.2 10^3/uL (1.5-3.5); LYMPHOCYTES % (AUTO) 12.6 %; MEAN CORPUSCULAR HEMOGLOBIN 25.3 pg (27.0-31.0); MEAN CORPUSCULAR HGB CONC 29.6 g/dL (32.0-36.0); MEAN CORPUSCULAR VOLUME 85.4 fL (81.0-99.0); MEAN PLATELET VOLUME 9.2 fL (7.9-10.8); MONOCYTES # (AUTO) 0.8 10^3/uL (0.0-1.0); MONOCYTES % (AUTO) 8.8 %; NEUTROPHILS # (AUTO) 7.2 10^3/uL (1.5-6.6); NEUTROPHILS % (AUTO) 76.6 %; PLT - PLATELET COUNT 381 10^3/uL (130-450); RED BLOOD COUNT 2.81 10^6/uL (4.20-5.40); RED CELL DISTRIBUTION WIDTH 16.7 % (12.0-15.0); WHITE BLOOD COUNT 9.5 x10^3/uL (4.8-10.8)
[2019-12-22 05:59] LABS: CALCIUM 8.6 mg/dL (8.5-10.3); CREATININE 1.5 mg/dL (0.4-1.0); MAGNESIUM 1.9 mg/dL (1.7-2.8); PHOSPHORUS 2.5 mg/dL (2.5-4.6)
[2019-12-22] MEDS ORDERED: INSULIN ASPART 300 UNIT/3 ML PEN SUBQ SCH (08:00)
[2019-12-22] MEDS: HEPARIN 5,000 UNIT/ML VIAL SUBQ SCH ×2 (08:08→21:03)
[2019-12-22] MEDS: LACTATED RINGERS 1,000 ML IV SCH ×2 (08:09→11:01)
[2019-12-22] MEDS: FERROUS SULFATE 325 MG TABLET PO SCH (08:13)
[2019-12-22] MEDS: INSULIN ASPART 300 UNIT/3 ML PEN SUBQ SCH ×5 (08:16→21:02)
[2019-12-22] MEDS: BRIMONIDINE 0.2% EACHEYE SCH ×2 (08:22→21:02)
[2019-12-22] MEDS: PREGABALIN 25 MG CAPSULE PO SCH ×2 (08:25→21:01)
[2019-12-22] MEDS: polyethylene glycoL 3350 17 GM PACKET PO SCH (08:27)
[2019-12-22] MEDS: NYSTATIN POWDER 15 GM TOP SCH ×2 (08:29→21:01)
[2019-12-22] MEDS: DORZOLAMIDE EACHEYE SCH ×2 (08:30→21:01)
[2019-12-22] MEDS: TIMOLOL EACHEYE SCH ×2 (08:30→21:01)
[2019-12-22] MEDS: INSULIN GLARGINE 300 UNIT/3 ML PEN SUBQ SCH (08:31)
--- NOTE | 2019-12-22 10:50 | PROVIDER PROGRESS NOTE ---
Subjective - Prog Note Date Prog Note Date: 12/22/19 - Subjective Subjective: She reports having difficulty recommend physical therapy today due to severe pain in her right knee and ankle. She states she also has left knee and ankle pain but is much more prominent in her right lower extremity. She denies any hip pain. She reports no pain in her upper extremities. She does not feel like she has an infection. She has not yet had a bowel movement but denies any bleeding prior to hospitalization. Current Medications - Current Medications Current Medications: Active Medications Acetaminophen (Tylenol) 650 mg PO Q4HR PRN PRN Reason: Pain 1 to 4 Last Admin: 12/22/19 05:25 Dose: 650 mg Documented by: Atorvastatin Calcium (Lipitor) 20 mg PO QPM [facility] Last Admin: 12/21/19 21:01 Dose: 20 mg Documented by: Brimonidine Tartrate (Alphagan P 0.2% Ophth Drops) 1 drops EACHEYE BID [facility] Last Admin: 12/22/19 08:22 Dose: 1 drops Documented by: Dorzolamide/Timolol (Cosopt) 1 drops EACHEYE BID [facility] Last Admin: 12/22/19 08:30 Dose: 1 drops Documented by: Ferrous Sulfate (Feosol) 325 mg PO DAILYWM [facility] Last Admin: 12/22/19 08:13 Dose: 325 mg Documented by: Heparin Sodium (Porcine) () 5,000 unit SUBQ BID [facility] Last Admin: 12/22/19 08:08 Dose: 5,000 unit Documented by: Lactated Ringer's (Lr) 1,000 mls @ 100 mls/hr IV .Q10H [facility] Last Admin: 12/22/19 11:01 Dose: Not Given Documented by: Vancomycin HCl 2 gm/ Sodium (Chloride) 500 mls @ 250 mls/hr IV Q24H [facility] Sodium Chloride (Normal Saline 0.9%) 500 mls @ 0 mls/hr IV Q24H PRN PRN Reason: TKO RATE Insulin Aspart (Novolog) 2 - 10 unit SUBQ 0800,1200,1700,2100 [facility]; Protocol Last Admin: 12/22/19 11:26 Dose: Not Given Documented by: Insulin Aspart (Novolog) 30 unit SUBQ QDDINNER [facility]; Protocol Last Admin: 12/21/19 17:25 Dose: 30 unit Documented by: Insulin Aspart (Novolog) 30 unit SUBQ QDBREAKFAST [facility]; Protocol Last Admin: 12/22/19 08:20 Dose: 30 unit Documented by: Insulin Glargine (Lantus Solostar) 40 unit SUBQ DAILY [facility] Last Admin: 12/22/19 08:31 Dose: 40 unit Documented by: Latanoprost (Xalatan Ophth Drops) 1 drops EACHEYE QPM [facility] Last Admin: 12/21/19 21:07 Dose: 1 drops Documented by: Nystatin (Nystop) 1 applic TOP BID [facility] Last Admin: 12/22/19 08:29 Dose: 1 applic Documented by: Ondansetron HCl (Zofran Inj) 4 mg IVP Q6HR PRN PRN Reason: Nausea / Vomiting Oxycodone HCl (Roxicodone) 5 mg PO Q6H PRN PRN Reason: PAIN Last Admin: 12/22/19 05:26 Dose: 5 mg Documented by: Polyethylene Glycol (Miralax) 17 gm PO DAILY [facility] Last Admin: 12/22/19 08:27 Dose: 17 gm Documented by: Pregabalin (Lyrica) 25 mg PO BID [facility] Last Admin: 12/22/19 08:25 Dose: 25 mg Documented by: Sodium Chloride (Normal Saline Flush 0.9%) 10 ml IVP PRN PRN PRN Reason: NEEDED PER PROVIDER ORDERS Sodium Chloride (Normal Saline Flush 0.9%) 10 ml IVP 0100,0900,1700 [facility] Last Admin: 12/22/19 08:29 Dose: Not Given Documented by: Glipizide [Glucotrol Xl] 10 mg PO BID 08/18/12 Aspirin/Acetaminophen/Caffeine [Excedrin Migraine Caplet] 2 tab PO BID PRN 04/26/15 Glucosam/Chondr-Msm6/Manganese [Glucosamine-Chondroitin Sftgl] 2 each PO DAILY 04/26/15 Multivitamin [Multivitamins] 1 each PO DAILY 04/26/15 oxyCODONE/ACET 5/325 [Percocet 5 mg/325 mg] 1 each PO Q4-6H PRN 07/19/18 Atorvastatin Calcium 20 mg PO DAILY PM 12/20/19 Doxylamine Succinate [Unisom] 25 mg PO DAILY PM 12/20/19 Latanoprost 1 drops OP DAILY PM 12/20/19 Pregabalin 25 mg PO BID 12/20/19 Brimonidine 0.2% Ophth Drops [Alphagan P 0.2% Ophth Drops] 1 drops EACHEYE BID 12/21/19 Carvedilol [Coreg] 25 mg PO BID 12/21/19 Dorzolamide HCl/Timolol Maleat [Dorzolamide-Timolol Eye Drops] 1 drops EACHEYE BID 12/21/19 Furosemide 80 mg PO DAILY 12/21/19 Insulin Regular Human [NovoLIN R] 30 - 50 units SQ BIDWM 12/21/19 Objective - Vital Signs/Intake & Output Reviewed Vital Signs: Yes Vital Signs: Vital Signs x48h Temp Pulse Resp BP Pulse Ox 12/22/19 07:44 37 C 73 16 128/69 98 12/22/19 05:00 37.0 C 78 16 138/55 H 98 Intake & Output: Intake & Output 12/19/19 12/20/19 12/21/19 12/22/19 23:59 23:59 23:59 23:59 Intake Total 1680 3360 1400 Output Total 725 775 800 Balance 955 2585 600 - Objective General Appearance: positive: No acute distress, Alert Eyes Bilateral: positive: Normal inspection, Conjunctivae nml ENT: positive: ENT inspection nml Neck: positive: Nml inspection Respiratory: positive: No respiratory distress. negative: Wheezes, Rales Cardiovascular: positive: No murmur. negative: Tachycardia, Bradycardia, Systolic murmur Abdomen: positive: Non-tender, No distention. negative: Tenderness, Guarding, Rebound Skin: positive: Warm, Dry Extremities: positive: Pedal edema (Trace pitting edema in her bilateral lower extremities.), Other (Her right knee is quite tender on palpation and is warm to touch. No obvious erythema. Her right ankle is also tender to palpation. Her left knee and ankle have slight tenderness but range of motion is improved compared to her right knee and ankle.) Comments/Other: She does have nodules in her bilateral hands predominantly in the MCP joints. - Lab Results Fish Bones: 12/22/19 05:25 12/22/19 05:25 Other Labs: Lab Results x24hrs 12/22/19 12/22/19 12/22/19 Range/Units 07:38 05:25 05:25 WBC 9.5 (4.8-10.8) x10^3/uL RBC 2.81 L (4.20-5.40) 10^6/uL Hgb 7.1 L (12.0-16.0) g/dL Hct 24.0 L (37.0-47.0) % MCV 85.4 (81.0-99.0) fL MCH 25.3 L (27.0-31.0) pg MCHC 29.6 L (32.0-36.0) g/dL RDW 16.7 H (12.0-15.0) % Plt Count 381 (130-450) 10^3/uL MPV 9.2 (7.9-10.8) fL Neut # (Auto) 7.2 H (1.5-6.6) 10^3/uL Lymph # (Auto) 1.2 L (1.5-3.5) 10^3/uL Coryell # (Auto) 0.8 (0.0-1.0) 10^3/uL Eos # (Auto) 0.1 (0.0-0.7) 10^3/uL Baso # (Auto) 0.0 (0.0-0.1) 10^3/uL Absolute Nucleated RBC 0.00 x10^3/uL Nucleated RBC % 0.0 /100WBC Sodium 133 L (135-145) mmol/L Potassium 3.9 (3.5-5.0) mmol/L Chloride 98 L (101-111) mmol/L Carbon Dioxide 25 (21-32) mmol/L Anion Gap 10.0 (6-13) BUN 32 H (6-20) mg/dL Creatinine 1.5 H (0.4-1.0) mg/dL Estimated GFR (MDRD) 35 L (>89) Glucose 237 H (70-100) mg/dL POC Whole Bld Glucose 185 H (70 - 100) mg/dL Estimat Average Glucose (70-100) mg/dL Hemoglobin A1c % (4.27-6.07) % Calcium 8.6 (8.5-10.3) mg/dL Phosphorus 2.5 (2.5-4.6) mg/dL Magnesium 1.9 (1.7-2.8) mg/dL Nasal Screen MRSA (PCR) (NEGATIVE) Blood Type Blood Type Recheck Antibody Screen Crossmatch IS Only 12/21/19 12/21/19 12/21/19 Range/Units 21:01 16:55 13:48 WBC (4.8-10.8) x10^3/uL RBC (4.20-5.40) 10^6/uL Hgb (12.0-16.0) g/dL Hct (37.0-47.0) % MCV (81.0-99.0) fL MCH (27.0-31.0) pg MCHC (32.0-36.0) g/dL RDW (12.0-15.0) % Plt Count (130-450) 10^3/uL MPV (7.9-10.8) fL Neut # (Auto) (1.5-6.6) 10^3/uL Lymph # (Auto) (1.5-3.5) 10^3/uL Coryell # (Auto) (0.0-1.0) 10^3/uL Eos # (Auto) (0.0-0.7) 10^3/uL Baso # (Auto) (0.0-0.1) 10^3/uL Absolute Nucleated RBC x10^3/uL Nucleated RBC % /100WBC Sodium (135-145) mmol/L Potassium (3.5-5.0) mmol/L Chloride (101-111) mmol/L Carbon Dioxide (21-32) mmol/L Anion Gap (6-13) BUN (6-20) mg/dL Creatinine (0.4-1.0) mg/dL Estimated GFR (MDRD) (>89) Glucose (70-100) mg/dL POC Whole Bld Glucose 338 H 277 H (70 - 100) mg/dL Estimat Average Glucose (70-100) mg/dL Hemoglobin A1c % (4.27-6.07) % Calcium (8.5-10.3) mg/dL Phosphorus (2.5-4.6) mg/dL Magnesium (1.7-2.8) mg/dL Nasal Screen MRSA (PCR) NEGATIVE (NEGATIVE) Blood Type Blood Type Recheck Antibody Screen Crossmatch IS Only 12/21/19 12/21/19 12/21/19 Range/Units 11:17 08:00 05:10 WBC (4.8-10.8) x10^3/uL RBC (4.20-5.40) 10^6/uL Hgb (12.0-16.0) g/dL Hct (37.0-47.0) % MCV (81.0-99.0) fL MCH (27.0-31.0) pg MCHC (32.0-36.0) g/dL RDW (12.0-15.0) % Plt Count (130-450) 10^3/uL MPV (7.9-10.8) fL Neut # (Auto) (1.5-6.6) 10^3/uL Lymph # (Auto) (1.5-3.5) 10^3/uL Coryell # (Auto) (0.0-1.0) 10^3/uL Eos # (Auto) (0.0-0.7) 10^3/uL Baso # (Auto) (0.0-0.1) 10^3/uL Absolute Nucleated RBC x10^3/uL Nucleated RBC % /100WBC Sodium (135-145) mmol/L Potassium (3.5-5.0) mmol/L Chloride (101-111) mmol/L Carbon Dioxide (21-32) mmol/L Anion Gap (6-13) BUN (6-20) mg/dL Creatinine (0.4-1.0) mg/dL Estimated GFR (MDRD) (>89) Glucose (70-100) mg/dL POC Whole Bld Glucose 290 H (70 - 100) mg/dL Estimat Average Glucose (70-100) mg/dL Hemoglobin A1c % (4.27-6.07) % Calcium (8.5-10.3) mg/dL Phosphorus (2.5-4.6) mg/dL Magnesium (1.7-2.8) mg/dL Nasal Screen MRSA (PCR) (NEGATIVE) Blood Type A POSITIVE Blood Type Recheck A POSITIVE Antibody Screen NEGATIVE Crossmatch IS Only See Detail 12/21/19 Range/Units 05:10 WBC (4.8-10.8) x10^3/uL RBC (4.20-5.40) 10^6/uL Hgb (12.0-16.0) g/dL Hct (37.0-47.0) % MCV (81.0-99.0) fL MCH (27.0-31.0) pg MCHC (32.0-36.0) g/dL RDW (12.0-15.0) % Plt Count (130-450) 10^3/uL MPV (7.9-10.8) fL Neut # (Auto) (1.5-6.6) 10^3/uL Lymph # (Auto) (1.5-3.5) 10^3/uL Coryell # (Auto) (0.0-1.0) 10^3/uL Eos # (Auto) (0.0-0.7) 10^3/uL Baso # (Auto) (0.0-0.1) 10^3/uL Absolute Nucleated RBC x10^3/uL Nucleated RBC % /100WBC Sodium (135-145) mmol/L Potassium (3.5-5.0) mmol/L Chloride (101-111) mmol/L Carbon Dioxide (21-32) mmol/L Anion Gap (6-13) BUN (6-20) mg/dL Creatinine (0.4-1.0) mg/dL Estimated GFR (MDRD) (>89) Glucose (70-100) mg/dL POC Whole Bld Glucose (70 - 100) mg/dL Estimat Average Glucose 146 H (70-100) mg/dL Hemoglobin A1c % 6.7 H (4.27-6.07) % Calcium (8.5-10.3) mg/dL Phosphorus (2.5-4.6) mg/dL Magnesium (1.7-2.8) mg/dL Nasal Screen MRSA (PCR) (NEGATIVE) Blood Type Blood Type Recheck Antibody Screen Crossmatch IS Only ABX Reporting Has patient been on IV antibiotics over the past 48 hours?: Yes Assessment/Plan - Problem List (1) Fever Impression: She has been afebrile since she had a fever in the emergency department. She continues to have no white count. There is been no obvious source of infection except for a positive blood culture which may potentially be a contaminant. Flu once it has been negative. COVID has been ordered but still pending. At this time we will keep her on vancomycin IV given the positive blood culture. We will repeat blood cultures today. We will continue to monitor for fever. (2) Gram-positive bacteremia Impression: 1 of her blood cultures growing gram-positive cocci in clusters. The other set has been negative to date. She was started on vancomycin empirically given she was febrile when she presented. May ultimately be a contaminant but given her fever we will continue to treat her at this time until we have speciation of the bacteria. We will recheck blood cultures today. We will also check CRP and ESR. If the bacteria of initial blood cultures is a common contaminant and repeat cultures are negative, we will likely discontinue antibiotics although we do not have a clear cause of her initial fever. (3) Weakness Impression: This appears to be related to her joint pain predominantly in her right lower extremity. Her CKs within normal limits. He does not have any neurologic deficits so suspect this may be more of a musculoskeletal issue. We will check an ESR and CRP today as if these are significantly elevated, she may potentially have polymyalgia rheumatica or rheumatoid arthritis. If the ESR and CRP are elevated then we will check MARTHA, rheumatoid factor, anti-CCP. We will pote ntially consider the use of prednisone. We will also obtain x-rays of her right knee and ankle today. (4) Anemia of chronic disease Impression: This likely anemia of chronic disease but there may be a component of iron deficiency anemia as well given her low percent saturation. Hemoglobin has decreased to 7.1 this morning. She still has not had a bowel movement but stool occult is pending. We will transfuse her 1 unit of packed red blood cell today. She has been started on oral iron supplementation. We will recheck her hemoglobin in the morning (5) Chronic kidney disease, stage IV (severe) Impression: Renal function continues to improve and her creatinine is 1.5. Her baseline has been approximately 2.0. This is likely secondary to her diabetes. We will continue to monitor her renal function while she is hospitalized. (6) Insulin dependent diabetes mellitus Impression: Her blood glucose has been elevated during this hospitalization. She states she is only on Novolin R at home but that she is supposed to be on Lantus. He will start Lantus 40 units this morning and continue with 30 units of NovoLog twice daily which she has been using at home. Her A1c is less than 7%. Continue carb controlled diet. (7) Peripheral neuropathy Impression: Stable. Continue home medications. (8) Glaucoma Impression: Stable. Continue home eyedrops.
[2019-12-22] MEDS ORDERED: SODIUM CHLORIDE 0.9% 500 ML IV PRN (11:33)
[2019-12-22] MEDS ORDERED: VANCOMYCIN INJ 2 GM in SODIUM CHLORIDE 0.9% 500 ML IV SCH (14:00)
[2019-12-22] MEDS ORDERED: SENNA 8.6 MG TABLET PO PRN (19:49)
[2019-12-22] MEDS: LATANOPROST 0.005% EACHEYE SCH (21:01)
[2019-12-22] MEDS: ATORVASTATIN 10 MG TABLET PO SCH (21:01)
[2019-12-22] MEDS: DOCUSATE SODIUM 250 MG CAPSULE PO SCH (21:02)
[2019-12-23] MEDS: SODIUM CHLORIDE FLUSH 0.9% 10 ML SYRINGE IVP SCH ×4 (00:39→23:42)
[2019-12-23] MEDS: oxyCODONE 5 MG TABLET PO PRN ×5 (02:27→22:08)
[2019-12-23] MEDS: ACETAMINOPHEN 325 MG TABLET PO PRN ×5 (02:27→22:08)
[2019-12-23 05:22] LABS: BASOPHILS % (AUTO) 0.4 %; EOSINOPHILS # (AUTO) 0.3 10^3/uL (0.0-0.7); EOSINOPHILS % (AUTO) 2.9 %; HGB - HEMOGLOBIN 7.6 g/dL (12.0-16.0); LYMPHOCYTES # (AUTO) 1.6 10^3/uL (1.5-3.5); LYMPHOCYTES % (AUTO) 17.4 %; MEAN CORPUSCULAR HEMOGLOBIN 24.8 pg (27.0-31.0); MEAN CORPUSCULAR HGB CONC 29.1 g/dL (32.0-36.0); MEAN CORPUSCULAR VOLUME 85.3 fL (81.0-99.0); MEAN PLATELET VOLUME 8.9 fL (7.9-10.8); MONOCYTES # (AUTO) 0.8 10^3/uL (0.0-1.0); MONOCYTES % (AUTO) 8.6 %; NEUTROPHILS # (AUTO) 6.3 10^3/uL (1.5-6.6); NEUTROPHILS % (AUTO) 70.1 %; PLT - PLATELET COUNT 406 10^3/uL (130-450); RED BLOOD COUNT 3.06 10^6/uL (4.20-5.40); RED CELL DISTRIBUTION WIDTH 16.5 % (12.0-15.0)
[2019-12-23 05:31] LABS: RHEUMATOID FACTOR NEGATIVE (Negative)
[2019-12-23 05:52] LABS: CALCIUM 8.5 mg/dL (8.5-10.3); CREATININE 1.4 mg/dL (0.4-1.0); CRP - C-REACTIVE PROTEIN 26.3 mg/dL (0-1.0); MAGNESIUM 1.8 mg/dL (1.7-2.8); PHOSPHORUS 3.1 mg/dL (2.5-4.6); URIC ACID 8.2 mg/dL (2.6-7.2)
[2019-12-23] MEDS: PREGABALIN 25 MG CAPSULE PO SCH ×2 (07:58→21:21)
[2019-12-23] MEDS: DOCUSATE SODIUM 250 MG CAPSULE PO SCH ×2 (07:59→21:12)
[2019-12-23] MEDS: DORZOLAMIDE EACHEYE SCH ×2 (08:12→21:11)
[2019-12-23] MEDS: TIMOLOL EACHEYE SCH ×2 (08:12→21:11)
[2019-12-23] MEDS: BRIMONIDINE 0.2% EACHEYE SCH ×2 (08:12→21:12)
[2019-12-23] MEDS: INSULIN GLARGINE 300 UNIT/3 ML PEN SUBQ SCH (08:16)
[2019-12-23] MEDS: HEPARIN 5,000 UNIT/ML VIAL SUBQ SCH ×2 (08:17→21:13)
[2019-12-23] MEDS: FERROUS SULFATE 325 MG TABLET PO SCH (08:25)
[2019-12-23] MEDS: polyethylene glycoL 3350 17 GM PACKET PO SCH (08:26)
[2019-12-23] MEDS: NYSTATIN POWDER 15 GM TOP SCH ×2 (08:26→21:11)
[2019-12-23] MEDS: INSULIN ASPART 300 UNIT/3 ML PEN SUBQ SCH ×7 (08:40→21:12)
--- NOTE | 2019-12-23 11:42 | PROVIDER PROGRESS NOTE ---
Subjective - Prog Note Date Prog Note Date: 12/23/19 - Subjective Subjective: She was able to work a little more with physical therapy today and was able to stand. Still complains of right knee and ankle pain but she feels this is slightly improved. She states her extremities are very sensitive to touch. Continues to report no upper extremity weakness. Current Medications - Current Medications Current Medications: Active Medications Acetaminophen (Tylenol) 650 mg PO Q4HR PRN PRN Reason: Pain 1 to 4 Last Admin: 12/23/19 07:57 Dose: 650 mg Documented by: Atorvastatin Calcium (Lipitor) 20 mg PO QPM [facility] [place] Last Admin: 12/22/19 21:01 Dose: 20 mg Documented by: Brimonidine Tartrate (Alphagan P 0.2% Ophth Drops) 1 drops EACHEYE BID [facility] [place] Last Admin: 12/23/19 08:12 Dose: 1 drops Documented by: Carvedilol (Coreg) 12.5 mg PO BID [facility] [place] Last Admin: 12/23/19 12:11 Dose: 12.5 mg Documented by: Docusate Sodium (Colace 250mg Capsule) 250 - 500 mg PO BID [facility] [place] Last Admin: 12/23/19 07:59 Dose: 500 mg Documented by: Dorzolamide/Timolol (Cosopt) 1 drops EACHEYE BID [facility] [place] Last Admin: 12/23/19 08:12 Dose: 1 drops Documented by: Ferrous Sulfate (Feosol) 325 mg PO DAILYWM [facility] [place] Last Admin: 12/23/19 08:25 Dose: 325 mg Documented by: Furosemide (Lasix) 80 mg PO DAILY [facility] [place] Heparin Sodium (Porcine) () 5,000 unit SUBQ BID [facility] [place] Last Admin: 12/23/19 08:17 Dose: 5,000 unit Documented by: Sodium Chloride (Normal Saline 0.9%) 500 mls @ 0 mls/hr IV Q24H PRN PRN Reason: TKO RATE Insulin Aspart (Novolog) 2 - 10 unit SUBQ 0800,1200,1700,2100 [facility] [place]; Protocol Last Admin: 12/23/19 12:12 Dose: 2 unit Documented by: Insulin Aspart (Novolog) 15 unit SUBQ TIDWM [facility] [place] Last Admin: 12/23/19 12:16 Dose: 15 unit Documented by: Insulin Glargine (Lantus Solostar) 40 unit SUBQ DAILY [facility] [place] Last Admin: 12/23/19 08:16 Dose: 40 unit Documented by: Latanoprost (Xalatan Ophth Drops) 1 drops EACHEYE QPM [facility] [place] Last Admin: 12/22/19 21:01 Dose: 1 drops Documented by: Nystatin (Nystop) 1 applic TOP BID [facility] [place] Last Admin: 12/23/19 08:26 Dose: 1 applic Documented by: Ondansetron HCl (Zofran Inj) 4 mg IVP Q6HR PRN PRN Reason: Nausea / Vomiting Oxycodone HCl (Roxicodone) 5 mg PO Q4H PRN PRN Reason: PAIN Last Admin: 12/23/19 08:10 Dose: 5 mg Documented by: Polyethylene Glycol (Miralax) 17 gm PO DAILY [facility] [place] Last Admin: 12/23/19 08:26 Dose: Not Given Documented by: Pregabalin (Lyrica) 25 mg PO BID [facility] [place] Last Admin: 12/23/19 07:58 Dose: 25 mg Documented by: Senna (Senokot) 8.6 - 17.2 mg PO BID PRN PRN Reason: Constipation Sodium Chloride (Normal Saline Flush 0.9%) 10 ml IVP PRN PRN PRN Reason: NEEDED PER PROVIDER ORDERS Sodium Chloride (Normal Saline Flush 0.9%) 10 ml IVP 0100,0900,1700 [facility] [place] Last Admin: 12/23/19 08:26 Dose: 10 ml Documented by: Glipizide [Glucotrol Xl] 10 mg PO BID 08/18/12 Aspirin/Acetaminophen/Caffeine [Excedrin Migraine Caplet] 2 tab PO BID PRN 04/26/15 Glucosam/Chondr-Msm6/Manganese [Glucosamine-Chondroitin Sftgl] 2 each PO DAILY 04/26/15 Multivitamin [Multivitamins] 1 each PO DAILY 04/26/15 oxyCODONE/ACET 5/325 [Percocet 5 mg/325 mg] 1 each PO Q4-6H PRN 07/19/18 Atorvastatin Calcium 20 mg PO DAILY PM 12/20/19 Doxylamine Succinate [Unisom] 25 mg PO DAILY PM 12/20/19 Latanoprost 1 drops OP DAILY PM 12/20/19 Pregabalin 25 mg PO BID 12/20/19 Brimonidine 0.2% Ophth Drops [Alphagan P 0.2% Ophth Drops] 1 drops EACHEYE BID 12/21/19 Carvedilol [Coreg] 25 mg PO BID 12/21/19 Dorzolamide HCl/Timolol Maleat [Dorzolamide-Timolol Eye Drops] 1 drops EACHEYE BID 12/21/19 Furosemide 80 mg PO DAILY 12/21/19 Insulin Regular Human [NovoLIN R] 30 - 50 units SQ BIDWM 12/21/19 Objective - Vital Signs/Intake & Output Reviewed Vital Signs: Yes Vital Signs: Vital Signs x48h Temp Pulse Resp BP BP Pulse Ox 12/23/19 09:00 36.6 C 65 19 103/86 H 97 12/23/19 04:06 36.6 C 71 18 142/65 H 99 Intake & Output: Intake & Output 12/20/19 12/21/19 12/22/19 12/23/19 23:59 23:59 23:59 23:59 Intake Total 1680 3360 3096.670 240 Output Total 951 486 1998 150 Balance 955 2585 1396.670 90 - Objective General Appearance: positive: No acute distress, Alert Eyes Bilateral: positive: Normal inspection, Conjunctivae nml ENT: positive: ENT inspection nml Neck: positive: Nml inspection Respiratory: positive: No respiratory distress. negative: Wheezes, Rales Cardiovascular: positive: Regular rate & rhythm, No murmur. negative: Tachycardia, Systolic murmur Abdomen: positive: Non-tender, No distention. negative: Tenderness, Guarding, Rebound Skin: positive: Warm Extremities: positive: Pedal edema (Trace pitting edema bilateral lower extremities), Other (She has bilateral hand deformities most prominent lateral aspect of her hands predominantly in her right hand. Right knee and ankle are tender to touch but this appears improved compared to yesterday and there is only minimal warmth. No erythema.) Neurologic/Psychiatric: positive: Oriented x3. negative: Disoriented to person, Disoriented to place, Disoriented to time - Lab Results Fish Bones: 12/23/19 14:04 12/23/19 04:40 Other Labs: Lab Results x24hrs 12/23/19 12/23/19 12/23/19 Range/Units 07:59 04:40 04:40 WBC (4.8-10.8) x10^3/uL RBC (4.20-5.40) 10^6/uL Hgb (12.0-16.0) g/dL Hct (37.0-47.0) % MCV (81.0-99.0) fL MCH (27.0-31.0) pg MCHC (32.0-36.0) g/dL RDW (12.0-15.0) % Plt Count (130-450) 10^3/uL MPV (7.9-10.8) fL Neut # (Auto) (1.5-6.6) 10^3/uL Lymph # (Auto) (1.5-3.5) 10^3/uL Fulton # (Auto) (0.0-1.0) 10^3/uL Eos # (Auto) (0.0-0.7) 10^3/uL Baso # (Auto) (0.0-0.1) 10^3/uL Absolute Nucleated RBC x10^3/uL Nucleated RBC % /100WBC ESR (0-30) mm/Hr Sodium 133 L (135-145) mmol/L Potassium 3.9 (3.5-5.0) mmol/L Chloride 98 L (101-111) mmol/L Carbon Dioxide 25 (21-32) mmol/L Anion Gap 10.0 (6-13) BUN 28 H (6-20) mg/dL Creatinine 1.4 H (0.4-1.0) mg/dL Estimated GFR (MDRD) 38 L (>89) Glucose 167 H (70-100) mg/dL POC Whole Bld Glucose 101 H (70 - 100) mg/dL Uric Acid 8.2 H (2.6-7.2) mg/dL Calcium 8.5 (8.5-10.3) mg/dL Phosphorus 3.1 (2.5-4.6) mg/dL Magnesium 1.8 (1.7-2.8) mg/dL C-Reactive Protein 26.3 H (0-1.0) mg/dL Rheumatoid Factor NEGATIVE (Negative) Coronavirus (PCR) Blood Type Antibody Screen Crossmatch IS Only 12/23/19 12/22/19 12/22/19 Range/Units 04:40 20:46 16:28 WBC 9.0 (4.8-10.8) x10^3/uL RBC 3.06 L (4.20-5.40) 10^6/uL Hgb 7.6 L (12.0-16.0) g/dL Hct 26.1 L (37.0-47.0) % MCV 85.3 (81.0-99.0) fL MCH 24.8 L (27.0-31.0) pg MCHC 29.1 L (32.0-36.0) g/dL RDW 16.5 H (12.0-15.0) % Plt Count 406 (130-450) 10^3/uL MPV 8.9 (7.9-10.8) fL Neut # (Auto) 6.3 (1.5-6.6) 10^3/uL Lymph # (Auto) 1.6 (1.5-3.5) 10^3/uL Fulton # (Auto) 0.8 (0.0-1.0) 10^3/uL Eos # (Auto) 0.3 (0.0-0.7) 10^3/uL Baso # (Auto) 0.0 (0.0-0.1) 10^3/uL Absolute Nucleated RBC 0.00 x10^3/uL Nucleated RBC % 0.0 /100WBC ESR (0-30) mm/Hr Sodium (135-145) mmol/L Potassium (3.5-5.0) mmol/L Chloride (101-111) mmol/L Carbon Dioxide (21-32) mmol/L Anion Gap (6-13) BUN (6-20) mg/dL Creatinine (0.4-1.0) mg/dL Estimated GFR (MDRD) (>89) Glucose (70-100) mg/dL POC Whole Bld Glucose 260 H 234 H (70 - 100) mg/dL Uric Acid (2.6-7.2) mg/dL Calcium (8.5-10.3) mg/dL Phosphorus (2.5-4.6) mg/dL Magnesium (1.7-2.8) mg/dL C-Reactive Protein (0-1.0) mg/dL Rheumatoid Factor (Negative) Coronavirus (PCR) Blood Type Antibody Screen Crossmatch IS Only 12/22/19 12/22/1912/20/20 Range/Units 05:25 05:25 08:00 WBC (4.8-10.8) x10^3/uL RBC (4.20-5.40) 10^6/uL Hgb (12.0-16.0) g/dL Hct (37.0-47.0) % MCV (81.0-99.0) fL MCH (27.0-31.0) pg MCHC (32.0-36.0) g/dL RDW (12.0-15.0) % Plt Count (130-450) 10^3/uL MPV (7.9-10.8) fL Neut # (Auto) (1.5-6.6) 10^3/uL Lymph # (Auto) (1.5-3.5) 10^3/uL [place]on # (Auto) (0.0-1.0) 10^3/uL Eos # (Auto) (0.0-0.7) 10^3/uL Baso # (Auto) (0.0-0.1) 10^3/uL Absolute Nucleated RBC x10^3/uL Nucleated RBC % /100WBC ESR > 140 H (0-30) mm/Hr Sodium (135-145) mmol/L Potassium (3.5-5.0) mmol/L Chloride (101-111) mmol/L Carbon Dioxide (21-32) mmol/L Anion Gap (6-13) BUN (6-20) mg/dL Creatinine (0.4-1.0) mg/dL Estimated GFR (MDRD) (>89) Glucose (70-100) mg/dL POC Whole Bld Glucose (70 - 100) mg/dL Uric Acid (2.6-7.2) mg/dL Calcium (8.5-10.3) mg/dL Phosphorus (2.5-4.6) mg/dL Magnesium (1.7-2.8) mg/dL C-Reactive Protein 27.2 H (0-1.0) mg/dL Rheumatoid Factor (Negative) Coronavirus (PCR) Blood Type A POSITIVE Antibody Screen NEGATIVE Crossmatch IS Only See Detail 12/20/19 Range/Units 09:05 WBC (4.8-10.8) x10^3/uL RBC (4.20-5.40) 10^6/uL Hgb (12.0-16.0) g/dL Hct (37.0-47.0) % MCV (81.0-99.0) fL MCH (27.0-31.0) pg MCHC (32.0-36.0) g/dL RDW (12.0-15.0) % Plt Count (130-450) 10^3/uL MPV (7.9-10.8) fL Neut # (Auto) (1.5-6.6) 10^3/uL Lymph # (Auto) (1.5-3.5) 10^3/uL [place] # (Auto) (0.0-1.0) 10^3/uL Eos # (Auto) (0.0-0.7) 10^3/uL Baso # (Auto) (0.0-0.1) 10^3/uL Absolute Nucleated RBC x10^3/uL Nucleated RBC % /100WBC ESR (0-30) mm/Hr Sodium (135-145) mmol/L Potassium (3.5-5.0) mmol/L Chloride (101-111) mmol/L Carbon Dioxide (21-32) mmol/L Anion Gap (6-13) BUN (6-20) mg/dL Creatinine (0.4-1.0) mg/dL Estimated GFR (MDRD) (>89) Glucose (70-100) mg/dL POC Whole Bld Glucose (70 - 100) mg/dL Uric Acid (2.6-7.2) mg/dL Calcium (8.5-10.3) mg/dL Phosphorus (2.5-4.6) mg/dL Magnesium (1.7-2.8) mg/dL C-Reactive Protein (0-1.0) mg/dL Rheumatoid Factor (Negative) Coronavirus (PCR) NEGATIVE Blood Type Antibody Screen Crossmatch IS Only ABX Reporting Has patient been on IV antibiotics over the past 48 hours?: Yes Assessment/Plan - Problem List (1) Anemia of chronic disease Impression: Hemoglobin did not respond appropriately to 1 unit of packed red blood cell yesterday. This morning it is 7.6 from 7.1 yesterday. There has been no evidence of bleeding but she has not yet had a bowel movement and so we are waiting a stool sample to check for occult bleeding. Her iron studies are suggestive of anemia of chronic disease but her ferritin is likely elevated due to it being an acute phase reactant as well. We will continue her on oral iron. Will discuss with general surgery today regarding proceeding with endoscopy and possibly colonoscopy given her ongoing anemia. We will recheck hemoglobin this afternoon (2) Polyarthritis of lower leg Impression: She has polyarthritis of her bilateral knees and ankles that is more prominent in her right lower extremity. She also has nodules in her bilateral hands. Given her significantly elevated ESR and CRP, concern is for an autoimmune disorder such as rheumatoid arthritis or lupus. Rheumatoid factor is negative. MARTHA is pending as well as CCP antibody. X-rays of her right knee, ankle and hand have been obtained but awaiting official report. Will consider starting her on prednisone pending the official read. We will also consider discussing with orthopedic surgery to get their input based off of the x-ray findings. (3) Fever Impression: She was febrile on admission but has been afebrile since then. She did have a slight low-grade fever yesterday afternoon. Initial blood culture was positive for staph which is likely a contaminant. Repeat blood cultures have been negati ve. We will discontinue antibiotics. Suspect her fever is likely due to the suspected autoimmune disorder. Continue to monitor for fevers and her white count. (4) Gram-positive bacteremia Impression: Her blood cultures grew Staphylococcus warneri which is likely a contaminant given only one set was positive from the same site and repeat blood cultures henley ve been negative. Her fever was likely due to an autoimmune disorder rather than true infection. There has been no obvious source of infection and so we will discontinue antibiotics. (5) Weakness Impression: This is likely multifactorial and secondary to physical deconditioning, anemia, and ongoing joint pain. She has been evaluated by physical therapy and a retirement facility has been recommended. We will continue PT during his hospitalization. We will continue further work-up of the suspected autoimmune disorder. Will consider a trial of steroids. We will continue further work-up of her anemia as mentioned above. (6) Chronic kidney disease, stage IV (severe) Impression: No function has remained stable is actually improved during this hospitalization. Her creatinine is down to 1.4. Her CKD is secondary to her diabetes. We will continue to monitor while she is hospitalized. We will avoid NSAIDs for her arthritis given the chronic kidney disease. (7) Insulin dependent diabetes mellitus Impression: Her blood glucose is better controlled today after initiating Lantus during the day. She is concerned about continuing her usual 30 units of NovoLog twice daily so we will continue Lantus [address] her on 15 units of NovoLog with meals. We will monitor her blood glucose closely especially if we initiate prednisone. Continue carb controlled diet. (8) Peripheral neuropathy Impression: Given her significant neuropathic pain, we will increase her Lyrica to 50 mg twice daily. (9) Glaucoma Impression: Stable. Continue home eyedrops.
[2019-12-23] MEDS: carvediloL 12.5 MG TABLET PO SCH (12:11)
[2019-12-23 14:11] LABS: HGB - HEMOGLOBIN 8.3 g/dL (12.0-16.0)
[2019-12-23] MEDS ORDERED: predniSONE 20 MG TABLET PO SCH (16:00)
--- NOTE | 2019-12-23 17:47 | XRAY Report ---
PROCEDURE: Knee 3 View RT INDICATIONS: Right knee pain. Warmth. Decreased ROM. TECHNIQUE: 3 views of the right knee were acquired. COMPARISON: None. FINDINGS: Bones: No acute fractures or dislocations. No suspicious bony lesions. There is severe narrowing of the lateral femorotibial joint space with subchondral sclerosis and marginal osteophyte formation. M ild narrowing of the medial and anterior compartments is seen. Soft tissues: A small joint effusion is seen without definite lipohemarthrosis. No suspicious soft ti ssue calcifications. IMPRESSION: 1. No acute osseous abnormality. If symptoms persist with conservative management, further evaluatio n with CT or MRI may be obtained. 2. Tricompartment degenerative changes are most severe in the lateral femorotibial compartment. Reviewed by: Kingsley Toledo MD on 12/23/2019 5:46 PM PDT Approved by: Kingsley Toledo MD on 12/23/2019 5:46 PM PDT Station ID: [id number]
--- NOTE | 2019-12-23 17:53 | XRAY Report ---
PROCEDURE: Hand 3 View RT INDICATIONS: Pain. Nodules. Warmth. TECHNIQUE: 3 views of the hand acquired. COMPARISON: None. FINDINGS: Bones: Extensive periarticular lucencies in joint space narrowing are seen involving the majority of the joints in the hand and wrist. There is generalized osteopenia. There is severe destruction of the fifth proximal interphalangeal joint and marked soft tissue swelling throughout the fifth finger. Vo lar subluxations are noted at the second and third metacarpophalangeal joints and there is hyperexten simón deformity of the first metacarpophalangeal joint. Secondary degenerative changes are seen at the first carpometacarpal joint. Soft tissues: Marked soft tissue edema in the fifth finger and to a lesser extent the second and four th fingers. IMPRESSION: Extensive joint space narrowing with periarticular lucencies throughout the hand and wrist, most eloy re at the fifth distal interphalangeal joint. Soft tissue swelling seen throughout the fifth digit. S ubluxations are seen at the first through third metacarpophalangeal joints. Findings are suspicious f or an advanced inflammatory arthritis such as psoriatic arthritis or rheumatoid arthritis. Correlatio n with clinical findings and serologies is recommended. Reviewed by: Kingsley Toledo MD on 12/23/2019 5:52 PM PDT Approved by: Kingsley Toledo MD on 12/23/2019 5:52 PM PDT Station ID: [id number]
--- NOTE | 2019-12-23 17:58 | XRAY Report ---
PROCEDURE: Ankle 3 View RT INDICATIONS: Pain. Tenderness. Decreased ROM. TECHNIQUE: 3 views of the ankle were acquired. COMPARISON: None. FINDINGS: Bones: No acute fracture is identified. Degenerative changes are seen in the tarsometatarsal joints w ith periarticular lucencies that may represent erosions or subchondral cysts. Mild arthritic changes are seen at the navicular cuneiform articulations. Ankle mortise is normally aligned. No suspicious bony lesions. Posterior and plantar calcaneal spurs are noted. Soft tissues: Small tibiotalar joint effusion. Achilles tendon appears normal. Mild soft tissue daren ma is seen surrounding the ankle. IMPRESSION: No definite acute osseous abnormality is seen. Degenerative changes and periarticular angeles cencies are seen in the naviculocuneiform and tarsometatarsal joints, which are nonspecific and may b e related to osteoarthrosis and/or an inflammatory arthropathy. Nonspecific soft tissue edema is seen surrounding the ankle. Reviewed by: Kingsley Toledo MD on 12/23/2019 5:57 PM PDT Approved by: Kingsley Toledo MD on 12/23/2019 5:57 PM PDT Station ID: [id number]
[2019-12-23] MEDS: ATORVASTATIN 10 MG TABLET PO SCH (21:11)
[2019-12-23] MEDS: LATANOPROST 0.005% EACHEYE SCH (21:11)
[2019-12-24] MEDS: ACETAMINOPHEN 325 MG TABLET PO PRN ×5 (02:17→20:38)
[2019-12-24] MEDS: oxyCODONE 5 MG TABLET PO PRN ×5 (02:17→20:39)
[2019-12-24 05:21] LABS: BASOPHILS % (AUTO) 0.3 %; EOSINOPHILS % (AUTO) 0.1 %; HGB - HEMOGLOBIN 8.2 g/dL (12.0-16.0); LYMPHOCYTES # (AUTO) 1.1 10^3/uL (1.5-3.5); LYMPHOCYTES % (AUTO) 11.6 %; MEAN CORPUSCULAR HEMOGLOBIN 25.7 pg (27.0-31.0); MEAN CORPUSCULAR HGB CONC 30.7 g/dL (32.0-36.0); MEAN CORPUSCULAR VOLUME 83.7 fL (81.0-99.0); MEAN PLATELET VOLUME 8.9 fL (7.9-10.8); MONOCYTES # (AUTO) 0.4 10^3/uL (0.0-1.0); MONOCYTES % (AUTO) 4.1 %; NEUTROPHILS # (AUTO) 7.6 10^3/uL (1.5-6.6); PLT - PLATELET COUNT 459 10^3/uL (130-450); RED BLOOD COUNT 3.19 10^6/uL (4.20-5.40); RED CELL DISTRIBUTION WIDTH 16.3 % (12.0-15.0); WHITE BLOOD COUNT 9.2 x10^3/uL (4.8-10.8)
[2019-12-24 05:39] LABS: CALCIUM 8.5 mg/dL (8.5-10.3); CREATININE 1.4 mg/dL (0.4-1.0); MAGNESIUM 1.9 mg/dL (1.7-2.8); PHOSPHORUS 3.1 mg/dL (2.5-4.6)
[2019-12-24] MEDS: INSULIN ASPART 300 UNIT/3 ML PEN SUBQ SCH ×7 (08:08→20:42)
[2019-12-24] MEDS: INSULIN GLARGINE 300 UNIT/3 ML PEN SUBQ SCH (08:10)
[2019-12-24] MEDS: NYSTATIN POWDER 15 GM TOP SCH ×2 (08:12→20:41)
[2019-12-24] MEDS: FUROSEMIDE 40 MG TABLET PO SCH (08:16)
[2019-12-24] MEDS: carvediloL 12.5 MG TABLET PO SCH ×2 (08:17→20:43)
[2019-12-24] MEDS: FERROUS SULFATE 325 MG TABLET PO SCH (08:18)
[2019-12-24] MEDS: PREGABALIN 25 MG CAPSULE PO SCH ×2 (08:18→20:39)
[2019-12-24] MEDS: TIMOLOL EACHEYE SCH ×2 (08:20→20:41)
[2019-12-24] MEDS: DORZOLAMIDE EACHEYE SCH ×2 (08:20→20:41)
[2019-12-24] MEDS: BRIMONIDINE 0.2% EACHEYE SCH ×2 (08:21→20:41)
[2019-12-24] MEDS: DOCUSATE SODIUM 250 MG CAPSULE PO SCH ×2 (08:21→20:42)
[2019-12-24] MEDS: polyethylene glycoL 3350 17 GM PACKET PO SCH (08:22)
[2019-12-24] MEDS: SODIUM CHLORIDE FLUSH 0.9% 10 ML SYRINGE IVP SCH ×2 (08:24→16:52)
[2019-12-24] MEDS: HEPARIN 5,000 UNIT/ML VIAL SUBQ SCH ×2 (08:31→20:44)
--- NOTE | 2019-12-24 10:19 | PROVIDER PROGRESS NOTE ---
Subjective - Prog Note Date Prog Note Date: 12/24/19 - Subjective Subjective: She is happy that she is progressing with physical therapy. Reports her lower extremity pain has improved with the increased dose of Lyrica. She would like to go to the senior care facility in [place]. Denies chest pain, dyspnea. Current Medications - Current Medications Current Medications: Active Medications Acetaminophen (Tylenol) 650 mg PO Q4HR PRN PRN Reason: Pain 1 to 4 Last Admin: 12/24/19 12:05 Dose: 650 mg Documented by: Atorvastatin Calcium (Lipitor) 20 mg PO QPM [facility] Last Admin: 12/23/19 21:11 Dose: 20 mg Documented by: Brimonidine Tartrate (Alphagan P 0.2% Ophth Drops) 1 drops EACHEYE BID [facility] Last Admin: 12/24/19 08:21 Dose: 1 drops Documented by: Carvedilol (Coreg) 25 mg PO BID [facility] Docusate Sodium (Colace 250mg Capsule) 250 - 500 mg PO BID [facility] Last Admin: 12/24/19 08:21 Dose: Not Given Documented by: Dorzolamide/Timolol (Cosopt) 1 drops EACHEYE BID [facility] Last Admin: 12/24/19 08:20 Dose: 1 drops Documented by: Ferrous Sulfate (Feosol) 325 mg PO DAILYWM [facility] Last Admin: 12/24/19 08:18 Dose: 325 mg Documented by: Furosemide (Lasix) 80 mg PO DAILY [facility] Last Admin: 12/24/19 08:16 Dose: 80 mg Documented by: Heparin Sodium (Porcine) () 5,000 unit SUBQ BID [facility] Last Admin: 12/24/19 08:31 Dose: 5,000 unit Documented by: Sodium Chloride (Normal Saline 0.9%) 500 mls @ 0 mls/hr IV Q24H PRN PRN Reason: TKO RATE Insulin Aspart (Novolog) 2 - 10 unit SUBQ 0800,1200,1700,2100 [facility]; Protocol Last Admin: 12/24/19 11:57 Dose: 2 unit Documented by: Insulin Aspart (Novolog) 15 unit SUBQ TIDWM [facility] Last Admin: 12/24/19 11:57 Dose: 15 unit Documented by: Insulin Glargine (Lantus Solostar) 40 unit SUBQ DAILY [facility] Last Admin: 12/24/19 08:10 Dose: 40 unit Documented by: Latanoprost (Xalatan Ophth Drops) 1 drops EACHEYE QPM [facility] Last Admin: 12/23/19 21:11 Dose: 1 drops Documented by: Nystatin (Nystop) 1 applic TOP BID [facility] Last Admin: 12/24/19 08:12 Dose: 1 applic Documented by: Ondansetron HCl (Zofran Inj) 4 mg IVP Q6HR PRN PRN Reason: Nausea / Vomiting Oxycodone HCl (Roxicodone) 5 mg PO Q4H PRN PRN Reason: PAIN Last Admin: 12/24/19 12:04 Dose: 5 mg Documented by: Polyethylene Glycol (Miralax) 17 gm PO DAILY [facility] Last Admin: 12/24/19 08:22 Dose: Not Given Documented by: Pregabalin (Lyrica) 50 mg PO BID [facility] Last Admin: 12/24/19 08:18 Dose: 50 mg Documented by: Senna (Senokot) 8.6 - 17.2 mg PO BID PRN PRN Reason: Constipation Sodium Chloride (Normal Saline Flush 0.9%) 10 ml IVP PRN PRN PRN Reason: NEEDED PER PROVIDER ORDERS Sodium Chloride (Normal Saline Flush 0.9%) 10 ml IVP 0100,0900,1700 [facility] Last Admin: 12/24/19 08:24 Dose: 10 ml Documented by: Glipizide [Glucotrol Xl] 10 mg PO BID 08/18/12 Aspirin/Acetaminophen/Caffeine [Excedrin Migraine Caplet] 2 tab PO BID PRN 04/26/15 Glucosam/Chondr-Msm6/Manganese [Glucosamine-Chondroitin Sftgl] 2 each PO DAILY 04/26/15 Multivitamin [Multivitamins] 1 each PO DAILY 04/26/15 oxyCODONE/ACET 5/325 [Percocet 5 mg/325 mg] 1 each PO Q4-6H PRN 07/19/18 Atorvastatin Calcium 20 mg PO DAILY PM 12/20/19 Doxylamine Succinate [Unisom] 25 mg PO DAILY PM 12/20/19 Latanoprost 1 drops OP DAILY PM 12/20/19 Pregabalin 25 mg PO BID 12/20/19 Brimonidine 0.2% Ophth Drops [Alphagan P 0.2% Ophth Drops] 1 drops EACHEYE BID 12/21/19 Carvedilol [Coreg] 25 mg PO BID 12/21/19 Dorzolamide HCl/Timolol Maleat [Dorzolamide-Timolol Eye Drops] 1 drops EACHEYE BID 12/21/19 Furosemide 80 mg PO DAILY 12/21/19 Insulin Regular Human [NovoLIN R] 30 - 50 units SQ BIDWM 12/21/19 Objective - Vital Signs/Intake & Output Reviewed Vital Signs: Yes Vital Signs: Vital Signs x48h Temp Pulse Resp BP Pulse Ox 12/24/19 08:28 36.6 C 77 18 150/65 H 98 12/24/19 05:00 36.6 C 74 18 144/69 H 100 Intake & Output: Intake & Output 12/21/19 12/22/19 12/23/19 12/24/19 23:59 23:59 23:59 23:59 Intake Total 3360 3096.670 1460 Output Total 775 1700 1300 400 Balance 2585 1396.670 160 -400 - Objective General Appearance: positive: No acute distress, Alert Eyes Bilateral: positive: Normal inspection ENT: positive: ENT inspection nml Neck: positive: Nml inspection Respiratory: positive: No respiratory distress. negative: Wheezes, Rales Cardiovascular: positive: Regular rate & rhythm. negative: Tachycardia, Systolic murmur Abdomen: positive: Non-tender, No distention. negative: Tenderness Skin: positive: Warm, Dry Extremities: positive: Pedal edema (Trace edema in bilateral lower extremities.), Joint swelling (Her right pinky is swollen and warm to touch and is mildly tender. She has good range of motion.) Neurologic/Psychiatric: positive: Oriented x3 - Lab Results Fish Bones: 12/24/19 04:40 12/24/19 04:40 Other Labs: Lab Results x24hrs 12/24/19 12/24/19 12/24/19 Range/Units 07:38 04:40 04:40 WBC 9.2 (4.8-10.8) x10^3/uL RBC 3.19 L (4.20-5.40) 10^6/uL Hgb 8.2 L (12.0-16.0) g/dL Hct 26.7 L (37.0-47.0) % MCV 83.7 (81.0-99.0) fL MCH 25.7 L (27.0-31.0) pg MCHC 30.7 L (32.0-36.0) g/dL RDW 16.3 H (12.0-15.0) % Plt Count 459 H (130-450) 10^3/uL MPV 8.9 (7.9-10.8) fL Neut # (Auto) 7.6 H (1.5-6.6) 10^3/uL Lymph # (Auto) 1.1 L (1.5-3.5) 10^3/uL [place] # (Auto) 0.4 (0.0-1.0) 10^3/uL Eos # (Auto) 0.0 (0.0-0.7) 10^3/uL Baso # (Auto) 0.0 (0.0-0.1) 10^3/uL Absolute Nucleated RBC 0.00 x10^3/uL Nucleated RBC % 0.0 /100WBC Sodium 133 L (135-145) mmol/L Potassium 4.4 (3.5-5.0) mmol/L Chloride 100 L (101-111) mmol/L Carbon Dioxide 24 (21-32) mmol/L Anion Gap 9.0 (6-13) BUN 29 H (6-20) mg/dL Creatinine 1.4 H (0.4-1.0) mg/dL Estimated GFR (MDRD) 38 L (>89) Glucose 260 H (70-100) mg/dL POC Whole Bld Glucose 209 H (70 - 100) mg/dL Calcium 8.5 (8.5-10.3) mg/dL Phosphorus 3.1 (2.5-4.6) mg/dL Magnesium 1.9 (1.7-2.8) mg/dL 12/23/19 12/23/19 12/23/19 Range/Units 20:38 16:38 14:04 WBC (4.8-10.8) x10^3/uL RBC (4.20-5.40) 10^6/uL Hgb 8.3 L (12.0-16.0) g/dL Hct 27.5 L (37.0-47.0) % MCV (81.0-99.0) fL MCH (27.0-31.0) pg MCHC (32.0-36.0) g/dL RDW (12.0-15.0) % Plt Count (130-450) 10^3/uL MPV (7.9-10.8) fL Neut # (Auto) (1.5-6.6) 10^3/uL Lymph # (Auto) (1.5-3.5) 10^3/uL [place] # (Auto) (0.0-1.0) 10^3/uL Eos # (Auto) (0.0-0.7) 10^3/uL Baso # (Auto) (0.0-0.1) 10^3/uL Absolute Nucleated RBC x10^3/uL Nucleated RBC % /100WBC Sodium (135-145) mmol/L Potassium (3.5-5.0) mmol/L Chloride (101-111) mmol/L Carbon Dioxide (21-32) mmol/L Anion Gap (6-13) BUN (6-20) mg/dL Creatinine (0.4-1.0) mg/dL Estimated GFR (MDRD) (>89) Glucose (70-100) mg/dL POC Whole Bld Glucose 260 H 108 H (70 - 100) mg/dL Calcium (8.5-10.3) mg/dL Phosphorus (2.5-4.6) mg/dL Magnesium (1.7-2.8) mg/dL 12/23/19 Range/Units 12:06 WBC (4.8-10.8) x10^3/uL RBC (4.20-5.40) 10^6/uL Hgb (12.0-16.0) g/dL Hct (37.0-47.0) % MCV (81.0-99.0) fL MCH (27.0-31.0) pg MCHC (32.0-36.0) g/dL RDW (12.0-15.0) % Plt Count (130-450) 10^3/uL MPV (7.9-10.8) fL Neut # (Auto) (1.5-6.6) 10^3/uL Lymph # (Auto) (1.5-3.5) 10^3/uL Snyder # (Auto) (0.0-1.0) 10^3/uL Eos # (Auto) (0.0-0.7) 10^3/uL Baso # (Auto) (0.0-0.1) 10^3/uL Absolute Nucleated RBC x10^3/uL Nucleated RBC % /100WBC Sodium (135-145) mmol/L Potassium (3.5-5.0) mmol/L Chloride (101-111) mmol/L Carbon Dioxide (21-32) mmol/L Anion Gap (6-13) BUN (6-20) mg/dL Creatinine (0.4-1.0) mg/dL Estimated GFR (MDRD) (>89) Glucose (70-100) mg/dL POC Whole Bld Glucose 151 H (70 - 100) mg/dL Calcium (8.5-10.3) mg/dL Phosphorus (2.5-4.6) mg/dL Magnesium (1.7-2.8) mg/dL ABX Reporting Has patient been on IV antibiotics over the past 48 hours?: No Assessment/Plan - Problem List (1) Anemia of chronic disease Impression: Her hemoglobin has remained stable since transfusion and her stool is negative for occult bleeding. This likely anemia of chronic disease and there may be a component of iron deficiency anemia. We will continue her on iron suppleme ntation. We will hold off on endoscopy and colonoscopy given the patient was not very open to the idea of this and her stool is negative for occult bleeding. (2) Inflammatory arthritis Impression: X-ray of the right hand is concerning for inflammatory arthritis. Her ESR and CRP are also significantly elevated. This may be the cause of her fever on admission. Rheumatoid factor is negative. MARTHA and CCP antibody are pending. This may be Psoriatec arthritis or rheumatoid arthritis. We will hold off on steroids for the time being given this may be related to psoriasis. Will not start her on methotrexate either given she is type II diabetic and obese. We will recommend that she see rheumatology on an outpatient basis as soon as possible once she is discharged for definitive diagnosis and treatment plan. Will avoid NSAIDs given her chronic kidney disease. (3) Fever Impression: She had one fever on admission when she was in the emergency department but since then she has been afebrile. Suspect is likely related to her inflammatory arthritis rather than true infection. No evidence of infection during this hospitalization. We will continue to monitor while she is hospitalized. (4) Gram-positive bacteremia Impression: Blood culture on admission grew Staphylococcus warneri from the same set in the aerobic and anaerobic bottle. The other set of blood cultures were negative to date and repeat blood cultures have been negative although she was started on vancomycin empirically after the initial blood culture. She has remained afebrile and there is no obvious source of infection. Suspect this is likely a contaminant. Antibiotics have been discontinued. (5) Weakness Impression: She continues to improve on a daily basis with physical therapy. A skilled nurse facility has been recommended and she is pending placement. (6) Chronic kidney disease, stage IV (severe) Impression: Her creatinine is actually low as it has been in quite some time with it being 1.4. Her baseline previously was approximately 2. We will continue to monitor her renal function while she is hospitalized. (7) Insulin dependent diabetes mellitus Impression: Her blood glucose is better controlled today. We will continue her on her current dose of Lantus and NovoLog with meals. We will discharge her on her home dose of insulin given her A1c is less than 7%. Continue carb controlled diet. (8) Peripheral neuropathy Impression: Stable. We will continue the increased dose of Lyrica. (9) Glaucoma Impression: Stable. Continue home eyedrops.
[2019-12-24] MEDS: ATORVASTATIN 10 MG TABLET PO SCH (20:39)
[2019-12-24] MEDS: LATANOPROST 0.005% EACHEYE SCH (20:41)
[2019-12-25] MEDS: ACETAMINOPHEN 325 MG TABLET PO PRN ×4 (00:57→22:45)
[2019-12-25] MEDS: oxyCODONE 5 MG TABLET PO PRN ×6 (00:58→22:45)
[2019-12-25] MEDS: SODIUM CHLORIDE FLUSH 0.9% 10 ML SYRINGE IVP SCH ×4 (01:02→23:44)
[2019-12-25 05:01] LABS: BASOPHILS # (AUTO) 0.1 10^3/uL (0.0-0.1); BASOPHILS % (AUTO) 0.6 %; EOSINOPHILS # (AUTO) 0.4 10^3/uL (0.0-0.7); EOSINOPHILS % (AUTO) 4.1 %; LYMPHOCYTES % (AUTO) 20.5 %; MEAN CORPUSCULAR HEMOGLOBIN 24.6 pg (27.0-31.0); MEAN CORPUSCULAR HGB CONC 28.4 g/dL (32.0-36.0); MEAN CORPUSCULAR VOLUME 86.8 fL (81.0-99.0); MEAN PLATELET VOLUME 8.6 fL (7.9-10.8); MONOCYTES # (AUTO) 0.7 10^3/uL (0.0-1.0); MONOCYTES % (AUTO) 7.1 %; NEUTROPHILS # (AUTO) 6.4 10^3/uL (1.5-6.6); NEUTROPHILS % (AUTO) 66.4 %; PLT - PLATELET COUNT 475 10^3/uL (130-450); RED BLOOD COUNT 3.25 10^6/uL (4.20-5.40); RED CELL DISTRIBUTION WIDTH 16.7 % (12.0-15.0); WHITE BLOOD COUNT 9.7 x10^3/uL (4.8-10.8)
[2019-12-25 05:19] LABS: CALCIUM 8.8 mg/dL (8.5-10.3); CREATININE 1.5 mg/dL (0.4-1.0); MAGNESIUM 1.8 mg/dL (1.7-2.8); PHOSPHORUS 3.8 mg/dL (2.5-4.6)
[2019-12-25 05:25] LABS: PLATELET ESTIMATE, MANUAL INCREASED (>450,000) (NORMAL); PLATELET MORPHOLOGY NORMAL APPEARANCE (NORMAL); RBC MORPHOLOGY (MULTIPLE) 2+ HYPOCHROMASIA (NORMAL)
[2019-12-25] MEDS: INSULIN ASPART 300 UNIT/3 ML PEN SUBQ SCH ×8 (07:41→21:14)
[2019-12-25] MEDS: PREGABALIN 25 MG CAPSULE PO SCH ×2 (08:11→21:13)
[2019-12-25] MEDS: FERROUS SULFATE 325 MG TABLET PO SCH (08:11)
[2019-12-25] MEDS: DOCUSATE SODIUM 250 MG CAPSULE PO SCH ×2 (08:12→21:14)
[2019-12-25] MEDS: carvediloL 12.5 MG TABLET PO SCH ×2 (08:12→21:14)
[2019-12-25] MEDS: FUROSEMIDE 40 MG TABLET PO SCH (08:12)
[2019-12-25] MEDS: INSULIN GLARGINE 300 UNIT/3 ML PEN SUBQ SCH (08:13)
[2019-12-25] MEDS: HEPARIN 5,000 UNIT/ML VIAL SUBQ SCH ×2 (08:20→21:15)
[2019-12-25] MEDS: NYSTATIN POWDER 15 GM TOP SCH ×2 (08:22→21:15)
[2019-12-25] MEDS: TIMOLOL EACHEYE SCH ×2 (08:26→21:12)
[2019-12-25] MEDS: BRIMONIDINE 0.2% EACHEYE SCH ×2 (08:26→21:12)
[2019-12-25] MEDS: DORZOLAMIDE EACHEYE SCH ×2 (08:26→21:12)
[2019-12-25] MEDS: polyethylene glycoL 3350 17 GM PACKET PO SCH (08:27)
--- NOTE | 2019-12-25 13:47 | PROVIDER PROGRESS NOTE ---
Subjective - Prog Note Date Prog Note Date: 12/25/19 - Subjective Subjective: She reports her neuropathy pain is much improved today. She is able to work more with physical therapy. Reports her hand pain is also improved. She is able to touch her lower extremities without much pain. Current Medications - Current Medications Current Medications: Active Medications Acetaminophen (Tylenol) 650 mg PO Q4HR PRN PRN Reason: Pain 1 to 4 Last Admin: 12/25/19 14:12 Dose: 650 mg Documented by: Atorvastatin Calcium (Lipitor) 20 mg PO QPM [facility] Last Admin: 12/24/19 20:39 Dose: 20 mg Documented by: Brimonidine Tartrate (Alphagan P 0.2% Ophth Drops) 1 drops EACHEYE BID [facility] Last Admin: 12/25/19 08:26 Dose: 1 drops Documented by: Carvedilol (Coreg) 25 mg PO BID [facility] Last Admin: 12/25/19 08:12 Dose: 25 mg Documented by: Docusate Sodium (Colace 250mg Capsule) 250 - 500 mg PO BID [facility] Last Admin: 12/25/19 08:12 Dose: 250 mg Documented by: Dorzolamide/Timolol (Cosopt) 1 drops EACHEYE BID [facility] Last Admin: 12/25/19 08:26 Dose: 1 drops Documented by: Ferrous Sulfate (Feosol) 325 mg PO DAILYWM [facility] Last Admin: 12/25/19 08:11 Dose: 325 mg Documented by: Furosemide (Lasix) 80 mg PO DAILY [facility] Last Admin: 12/25/19 08:12 Dose: 80 mg Documented by: Heparin Sodium (Porcine) () 5,000 unit SUBQ BID [facility] Last Admin: 12/25/19 08:20 Dose: 5,000 unit Documented by: Sodium Chloride (Normal Saline 0.9%) 500 mls @ 0 mls/hr IV Q24H PRN PRN Reason: TKO RATE Insulin Aspart (Novolog) 2 - 10 unit SUBQ 0800,1200,1700,2100 [facility]; Protocol Last Admin: 12/25/19 12:01 Dose: 2 unit Documented by: Insulin Aspart (Novolog) 15 unit SUBQ TIDWM [facility] Last Admin: 12/25/19 12:06 Dose: 15 unit Documented by: Insulin Glargine (Lantus Solostar) 40 unit SUBQ DAILY [facility] Last Admin: 12/25/19 08:13 Dose: 40 unit Documented by: Latanoprost (Xalatan Ophth Drops) 1 drops EACHEYE QPM [facility] Last Admin: 12/24/19 20:41 Dose: 1 drops Documented by: Nystatin (Nystop) 1 applic TOP BID [facility] Last Admin: 12/25/19 08:22 Dose: 1 applic Documented by: Ondansetron HCl (Zofran Inj) 4 mg IVP Q6HR PRN PRN Reason: Nausea / Vomiting Oxycodone HCl (Roxicodone) 5 mg PO Q4H PRN PRN Reason: PAIN Last Admin: 12/25/19 14:12 Dose: 5 mg Documented by: Polyethylene Glycol (Miralax) 17 gm PO DAILY [facility] Last Admin: 12/25/19 08:27 Dose: Not Given Documented by: Pregabalin (Lyrica) 50 mg PO BID [facility] Last Admin: 12/25/19 08:11 Dose: 50 mg Documented by: Senna (Senokot) 8.6 - 17.2 mg PO BID PRN PRN Reason: Constipation Sodium Chloride (Normal Saline Flush 0.9%) 10 ml IVP PRN PRN PRN Reason: NEEDED PER PROVIDER ORDERS Sodium Chloride (Normal Saline Flush 0.9%) 10 ml IVP 0100,0900,1700 [facility] Last Admin: 12/25/19 09:30 Dose: 10 ml Documented by: Glipizide [Glucotrol Xl] 10 mg PO BID 08/18/12 Aspirin/Acetaminophen/Caffeine [Excedrin Migraine Caplet] 2 tab PO BID PRN 04/26/15 Glucosam/Chondr-Msm6/Manganese [Glucosamine-Chondroitin Sftgl] 2 each PO DAILY 04/26/15 Multivitamin [Multivitamins] 1 each PO DAILY 04/26/15 oxyCODONE/ACET 5/325 [Percocet 5 mg/325 mg] 1 each PO Q4-6H PRN 07/19/18 Atorvastatin Calcium 20 mg PO DAILY PM 12/20/19 Doxylamine Succinate [Unisom] 25 mg PO DAILY PM 12/20/19 Latanoprost 1 drops OP DAILY PM 12/20/19 Pregabalin 25 mg PO BID 12/20/19 Brimonidine 0.2% Ophth Drops [Alphagan P 0.2% Ophth Drops] 1 drops EACHEYE BID 12/21/19 Carvedilol [Coreg] 25 mg PO BID 12/21/19 Dorzolamide HCl/Timolol Maleat [Dorzolamide-Timolol Eye Drops] 1 drops EACHEYE BID 12/21/19 Furosemide 80 mg PO DAILY 12/21/19 Insulin Regular Human [NovoLIN R] 30 - 50 units SQ BIDWM 12/21/19 Objective - Vital Signs/Intake & Output Reviewed Vital Signs: Yes Vital Signs: Vital Signs x48h Temp Pulse Resp BP Pulse Ox 12/25/19 08:39 36.3 C L 69 18 151/74 H 100 Intake & Output: Intake & Output 12/22/19 12/23/19 12/24/19 12/25/19 23:59 23:59 23:59 23:59 Intake Total 3096.670 1460 910 390 Output Total 1700 1300 1401 800 Balance 1396.670 160 491 -410 - Objective General Appearance: positive: No acute distress, Alert Eyes Bilateral: positive: Normal inspection, Conjunctivae nml ENT: positive: ENT inspection nml Neck: positive: Nml inspection Respiratory: positive: No respiratory distress. negative: Wheezes, Rales Cardiovascular: positive: Regular rate & rhythm, No murmur. negative: Tachycardia, Bradycardia, Systolic murmur Abdomen: positive: Non-tender, No distention. negative: Tenderness, Guarding, Rebound Skin: positive: Warm, Dry Extremities: positive: Pedal edema (Trace edema in bilateral lower extremities.), Other (Her right pinky is less warm and erythematous today. It is still mildly tender.) Neurologic/Psychiatric: positive: Oriented x3. negative: Disoriented to person, Disoriented to place, Disoriented to time - Lab Results Fish Bones: 12/25/19 04:40 12/25/19 04:40 Other Labs: Lab Results x24hrs 12/25/19 12/25/19 12/25/19 Range/Units 11:34 07:30 04:40 WBC (4.8-10.8) x10^3/uL RBC (4.20-5.40) 10^6/uL Hgb (12.0-16.0) g/dL Hct (37.0-47.0) % MCV (81.0-99.0) fL MCH (27.0-31.0) pg MCHC (32.0-36.0) g/dL RDW (12.0-15.0) % Plt Count (130-450) 10^3/uL MPV (7.9-10.8) fL Neut # (Auto) (1.5-6.6) 10^3/uL Lymph # (Auto) (1.5-3.5) 10^3/uL [place] # (Auto) (0.0-1.0) 10^3/uL Eos # (Auto) (0.0-0.7) 10^3/uL Baso # (Auto) (0.0-0.1) 10^3/uL Absolute Nucleated RBC x10^3/uL Nucleated RBC % /100WBC Manual Slide Review WBC Morphology (NORMAL) Platelet Estimate (NORMAL) Platelet Morphology (NORMAL) RBC Morph Micro Appear (NORMAL) Sodium 136 (135-145) mmol/L Potassium 4.2 (3.5-5.0) mmol/L Chloride 101 (101-111) mmol/L Carbon Dioxide 25 (21-32) mmol/L Anion Gap 10.0 (6-13) BUN 33 H (6-20) mg/dL Creatinine 1.5 H (0.4-1.0) mg/dL Estimated GFR (MDRD) 35 L (>89) Glucose 129 H (70-100) mg/dL POC Whole Bld Glucose 163 H 115 H (70 - 100) mg/dL Calcium 8.8 (8.5-10.3) mg/dL Phosphorus 3.8 (2.5-4.6) mg/dL Magnesium 1.8 (1.7-2.8) mg/dL 12/25/19 12/24/19 12/24/19 Range/Units 04:40 20:40 16:43 WBC 9.7 (4.8-10.8) x10^3/uL RBC 3.25 L (4.20-5.40) 10^6/uL Hgb 8.0 L (12.0-16.0) g/dL Hct 28.2 L (37.0-47.0) % MCV 86.8 (81.0-99.0) fL MCH 24.6 L (27.0-31.0) pg MCHC 28.4 L (32.0-36.0) g/dL RDW 16.7 H (12.0-15.0) % Plt Count 475 H (130-450) 10^3/uL MPV 8.6 (7.9-10.8) fL Neut # (Auto) 6.4 (1.5-6.6) 10^3/uL Lymph # (Auto) 2.0 (1.5-3.5) 10^3/uL [place] # (Auto) 0.7 (0.0-1.0) 10^3/uL Eos # (Auto) 0.4 (0.0-0.7) 10^3/uL Baso # (Auto) 0.1 (0.0-0.1) 10^3/uL Absolute Nucleated RBC 0.00 x10^3/uL Nucleated RBC % 0.0 /100WBC Manual Slide Review Indicated WBC Morphology NORMAL APPEARANCE (NORMAL) Platelet Estimate INCREASED (>450,000) (NORMAL) Platelet Morphology NORMAL APPEARANCE (NORMAL) RBC Morph Micro Appear 2+ HYPOCHROMASIA (NORMAL) Sodium (135-145) mmol/L Potassium (3.5-5.0) mmol/L Chloride (101-111) mmol/L Carbon Dioxide (21-32) mmol/L Anion Gap (6-13) BUN (6-20) mg/dL Creatinine (0.4-1.0) mg/dL Estimated GFR (MDRD) (>89) Glucose (70-100) mg/dL POC Whole Bld Glucose 116 H 100 (70 - 100) mg/dL Calcium (8.5-10.3) mg/dL Phosphorus (2.5-4.6) mg/dL Magnesium (1.7-2.8) mg/dL ABX Reporting Has patient been on IV antibiotics over the past 48 hours?: No Assessment/Plan - Problem List (1) Anemia of chronic disease Impression: Her hemoglobin remained stable with evidence of bleeding. Her stool was negative for occult bleeding. We will continue oral iron (2) Inflammatory arthritis Impression: Suspect this is rheumatoid arthritis or psoriatic arthritis. Pain is controlled at this time. Her ESR and CRP were significant elevated. Rheumatoid factor is negative. MARTHA is pending. Hold off on NSAIDs given her CKD. We will not start her on any DMARDs given her pain is controlled. Discussed the importance of outpatient follow-up with rheumatology for definitive diagnosis and treatment plan. (3) Fever Impression: This has resolved since admission. Likely secondary to her inflammatory arthritis. No evidence of infection during this hospitalization. She will need outpatient follow-up with rheumatology for the arthritis. (4) Gram-positive bacteremia Impression: Her blood cultures were admission grew coag negative staph. This was felt to be contaminant and antibiotics were discontinued. I discussed with infectious disease at [facility] today and it was felt reasonable to consider this is a contaminant. I believe her fever is related to her rheumatoid ar thritis rather than true infection. She has had no white count or fever since hospitalization and antibiotics were not administered initially until positive blood culture but she still showed clinical improvement without treatment. Repeat cultures have been negative. We will not discharge her on any antibiotics. (5) Weakness Impression: Improving and she is doing well with physical therapy. This is felt to be due to physical deconditioning and her neuropathy. She is pending discharge to a senior care facility. (6) Chronic kidney disease, stage IV (severe) Impression: This is likely secondary to her diabetes. Renal function remained stable and is improved compared to her baseline. 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 Sweet. (7) Insulin dependent diabetes mellitus Impression: Her blood glucose is well controlled on current insulin regimen. Continue the current dose of Lantus and NovoLog and carb controlled diet. (8) Peripheral neuropathy Impression: Improved with increased dose of Lyrica. We will continue this higher dose of 50 mg twice daily. (9) Glaucoma Impression: Stable. Continue home eyedrops.
[2019-12-25] MEDS: LATANOPROST 0.005% EACHEYE SCH (21:11)
[2019-12-25] MEDS: ATORVASTATIN 10 MG TABLET PO SCH (21:16)
[2019-12-26] MEDS: oxyCODONE 5 MG TABLET PO PRN ×5 (02:35→18:56)
[2019-12-26] MEDS: ACETAMINOPHEN 325 MG TABLET PO PRN ×5 (02:36→18:55)
[2019-12-26] MEDS: HEPARIN 5,000 UNIT/ML VIAL SUBQ SCH ×2 (08:11→21:39)
[2019-12-26] MEDS: INSULIN GLARGINE 300 UNIT/3 ML PEN SUBQ SCH (08:11)
[2019-12-26] MEDS: FUROSEMIDE 40 MG TABLET PO SCH (08:12)
[2019-12-26] MEDS: PREGABALIN 25 MG CAPSULE PO SCH ×2 (08:12→21:40)
[2019-12-26] MEDS: FERROUS SULFATE 325 MG TABLET PO SCH (08:12)
[2019-12-26] MEDS: carvediloL 12.5 MG TABLET PO SCH ×2 (08:12→21:41)
[2019-12-26] MEDS: TIMOLOL EACHEYE SCH ×2 (08:13→21:43)
[2019-12-26] MEDS: DORZOLAMIDE EACHEYE SCH ×2 (08:13→21:43)
[2019-12-26] MEDS: NYSTATIN POWDER 15 GM TOP SCH ×2 (08:14→21:43)
[2019-12-26] MEDS: INSULIN ASPART 300 UNIT/3 ML PEN SUBQ SCH ×7 (08:18→21:35)
[2019-12-26] MEDS: polyethylene glycoL 3350 17 GM PACKET PO SCH (09:03)
[2019-12-26] MEDS: DOCUSATE SODIUM 250 MG CAPSULE PO SCH ×2 (09:03→21:40)
[2019-12-26] MEDS: SODIUM CHLORIDE FLUSH 0.9% 10 ML SYRINGE IVP SCH ×2 (09:03→17:26)
[2019-12-26] MEDS: BRIMONIDINE 0.2% EACHEYE SCH ×2 (09:04→21:42)
--- NOTE | 2019-12-26 13:44 | PROVIDER PROGRESS NOTE ---
Assessment/Plan - Problem List (1) Weakness Assessment/Plan: Improving and she is now progressing well with physical therapy. This is felt to be due to physical deconditioning and her neuropathy. She is pending discharge to a group home facility. (2) Inflammatory arthritis Assessment/Plan: Suspect this is rheumatoid arthritis or psoriatic arthritis. Pain is controlled at this time. Her ESR and CRP were significant elevated. Rheumatoid factor is negative. MARTHA is pending. Hold off on NSAIDs given her CKD. We will not start her on any DMARDs given her pain is controlled. Discussed the importance of outpatient follow-up with rheumatology for definitive diagnosis and treatment plan. (3) Peripheral neuropathy Assessment/Plan: Vastly improved with increased dose of Lyrica. With pain control, she was able to get OOB for the first time today and participate with PT. We will continue this higher dose of 50 mg twice daily. SNF for PT rehab is the plan. (4) Anemia of chronic disease Assessment/Plan: Her hemoglobin remains stable with evidence of bleeding. Her stool was negative for occult bleeding. We will continue oral iron. (5) Gram-positive bacteremia Assessment/Plan: Her blood cultures from admission grew coag negative staph. This was felt to be contaminant and antibiotics were discontinued. She has had no white count or fever since hospitalization and antibiotics were not administered initially until positive blood culture but she still showed clinical improvement without treatment. Repeat cultures have been negative. The last Hospitalist provider discussed with Infectious Disease at [facility] today and it was felt reasonable to consider this is a contaminant. Her fever is likely related to her rheumatoid arthritis rather than a true infection. We will not discharge her on any antibiotics. (6) Chronic kidney disease, stage IV (severe) Assessment/Plan: This is likely secondary to her diabetes. Renal function remained stable and is improved compared to her baseline. 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 (7) Insulin dependent diabetes mellitus Assessment/Plan: Her blood glucose is well controlled on current insulin regimen. Continue the current dose of Lantus and NovoLog and carb controlled diet. (8) Glaucoma Assessment/Plan: Stable. Continue home eyedrops. (9) Fever Assessment/Plan: Resolved. Likely secondary to her inflammatory arthritis. No evidence of infection during this hospitalization. She will need outpatient follow-up with rheumatology for the arthritis. - Current Meds Current Meds: Current Medications Generic Name Dose Route Start Last Admin Trade Name Freq PRN Reason Stop Dose Admin Acetaminophen 650 mg 12/20/19 09:14 12/26/19 10:53 Tylenol PO 650 mg Q4HR PRN Administration Pain 1 to 4 Atorvastatin Calcium 20 mg 12/20/19 21:00 12/25/19 21:16 Lipitor PO 20 mg QPM TANA Administration Brimonidine Tartrate 1 drops 12/21/19 13:00 12/26/19 09:04 Alphagan P 0.2% Ophth Drops EACHEYE 1 drops BID TANA Administration Carvedilol 25 mg 12/24/19 21:00 12/26/19 08:12 Coreg PO 25 mg BID TANA Administration Docusate Sodium 250 - 500 mg 12/22/19 21:00 12/26/19 09:03 Colace 250mg Capsule PO Not Given BID TANA Dorzolamide/Timolol 1 drops 12/21/19 21:00 12/26/19 08:13 Cosopt EACHEYE 1 drops BID TANA Administration Ferrous Sulfate 325 mg 12/21/19 08:00 12/26/19 08:12 Feosol PO 325 mg DAILYWM TANA Administration Furosemide 80 mg 12/24/19 09:00 12/26/19 08:12 Lasix PO 80 mg DAILY TANA Administration Heparin Sodium (Porcine) 5,000 unit 12/20/19 21:00 12/26/19 08:11 SUBQ 5,000 unit BID TANA Administration Insulin Aspart 2 - 10 unit 12/21/19 12:46 12/26/19 12:29 Novolog SUBQ 2 unit 0800,1200,1700,2100 TANA Administration Protocol Insulin Aspart 10 unit 12/25/19 18:00 12/26/19 12:30 Novolog SUBQ 10 unit TIDWM TANA Administration Insulin Glargine 40 unit 12/22/19 09:00 12/26/19 08:11 Lantus Solostar SUBQ 40 unit DAILY TANA Administration Latanoprost 1 drops 12/20/19 21:00 12/25/19 21:11 Xalatan Ophth Drops EACHEYE 1 drops QPM TANA Administration Nystatin 1 applic 12/20/19 14:00 12/26/19 08:14 Nystop TOP 1 applic BID TANA Administration Oxycodone HCl 5 mg 12/22/19 16:33 12/26/19 10:52 Roxicodone PO 5 mg Q4H PRN Administration PAIN Polyethylene Glycol 17 gm 12/22/19 09:00 12/26/19 09:03 Miralax PO Not Given DAILY TANA Pregabalin 50 mg 12/23/19 21:00 12/26/19 08:12 Lyrica PO 50 mg BID TANA Administration Sodium Chloride 10 ml 12/20/19 17:00 12/26/19 09:03 Normal Saline Flush 0.9% IVP 10 ml 0100,0900,1700 TANA Administration - Lab Result Fish Bone Diagrams: 12/25/19 04:40 12/25/19 04:40 Subjective - Subjective Patient Reports: Feeling Better (Her neuropathy pain is controlled afgter 2 days of higher doses of Lyrica.) Objective Vital Signs: Vital Signs - 24 hr 12/25/19 12/25/19 12/25/19 16:15 20:14 23:35 Temperature 36.3 C L 36.6 C 36.6 C Heart Rate [ 68 74 80 Brachial] Respiratory 16 20 17 Rate Blood Pressure [Left Brachial artery] Blood Pressure 132/66 H 131/71 H 143/65 H [Right Brachial artery] O2 Saturation 100 100 98 12/26/19 12/26/19 12/26/19 05:00 08:00 12:00 Temperature 36.5 C 36.5 C 36.7 C Heart Rate [ 70 64 70 Brachial] Respiratory 18 20 22 Rate Blood Pressure 134/61 H [Left Brachial artery] Blood Pressure 139/52 H 131/58 H [Right Brachial artery] O2 Saturation 100 98 99 Oxygen O2 Source Room air I&O (Last 24 Hrs): Intake and Output Totals x24h 12/24/19 12/25/19 12/26/19 23:59 23:59 23:59 Intake Total 910 1622 1280 Output Total 1401 2450 400 Balance -491 -828 880 General: Alert, Oriented x3 HEENT: EOMI, Mucous membr. moist/pink Neck: Supple, No JVD Neuro: Alert, Non Focal Cardiovascular: Regular rate, No murmurs Respiratory: No respiratory distress, Breath sounds nml Abdomen: Soft, Other (Obese with pannus) Extremities: No edema, Other (Red, swollen and deformed joints of digits of hands. No swelling or warmth of knees.) - Results Results: Laboratory Results WBC 9.7 x10^3/uL (4.8-10.8) 12/25/19 04:40 RBC 3.25 10^6/uL (4.20-5.40) L 12/25/19 04:40 Hgb 8.0 g/dL (12.0-16.0) L 12/25/19 04:40 Hct 28.2 % (37.0-47.0) L 12/25/19 04:40 MCV 86.8 fL (81.0-99.0) 12/25/19 04:40 MCH 24.6 pg (27.0-31.0) L 12/25/19 04:40 MCHC 28.4 g/dL (32.0-36.0) L 12/25/19 04:40 RDW 16.7 % (12.0-15.0) H 12/25/19 04:40 Plt Count 475 10^3/uL (130-450) H 12/25/19 04:40 MPV 8.6 fL (7.9-10.8) 12/25/19 04:40 Neut # (Auto) 6.4 10^3/uL (1.5-6.6) 12/25/19 04:40 Lymph # (Auto) 2.0 10^3/uL (1.5-3.5) 12/25/19 04:40 [place] # (Auto) 0.7 10^3/uL (0.0-1.0) 12/25/19 04:40 Eos # (Auto) 0.4 10^3/uL (0.0-0.7) 12/25/19 04:40 Baso # (Auto) 0.1 10^3/uL (0.0-0.1) 12/25/19 04:40 Absolute Nucleated RBC 0.00 x10^3/uL 12/25/19 04:40 Nucleated RBC % 0.0 /100WBC 12/25/19 04:40 Manual Slide Review Indicated 12/25/19 04:40 WBC Morphology NORMAL APPEARANCE (NORMAL) 12/25/19 04:40 Platelet Estimate INCREASED (>450,000) (NORMAL) 12/25/19 04:40 Platelet Morphology NORMAL APPEARANCE (NORMAL) 12/25/19 04:40 RBC Morph Micro Appear 2+ HYPOCHROMASIA (NORMAL) 12/25/19 04:40 ESR > 140 mm/Hr (0-30) H 12/22/19 05:25 Sodium 136 mmol/L (135-145) 12/25/19 04:40 Potassium 4.2 mmol/L (3.5-5.0) 12/25/19 04:40 Chloride 101 mmol/L (101-111) 12/25/19 04:40 Carbon Dioxide 25 mmol/L (21-32) 12/25/19 04:40 Anion Gap 10.0 (6-13) 12/25/19 04:40 BUN 33 mg/dL (6-20) H 12/25/19 04:40 Creatinine 1.5 mg/dL (0.4-1.0) H 12/25/19 04:40 Estimated GFR (MDRD) 35 (>89) L 12/25/19 04:40 Glucose 129 mg/dL (70-100) H 12/25/19 04:40 POC Whole Bld Glucose 145 mg/dL (70 - 100) H 12/26/19 11:41 Estimat Average Glucose 146 mg/dL (70-100) H 12/21/19 05:10 Hemoglobin A1c % 6.7 % (4.27-6.07) H 12/21/19 05:10 Lactic Acid 1.6 mmol/L (0.5-2.2) 12/20/19 07:47 Uric Acid 8.2 mg/dL (2.6-7.2) H 12/23/19 04:40 Calcium 8.8 mg/dL (8.5-10.3) 12/25/19 04:40 Phosphorus 3.8 mg/dL (2.5-4.6) 12/25/19 04:40 Magnesium 1.8 mg/dL (1.7-2.8) 12/25/19 04:40 Iron 13 ug/dL (28-170) L 12/20/19 07:47 TIBC 260 ug/dL (250-450) 12/20/19 07:47 % Saturation 5 % (20-50) L 12/20/19 07:47 Transferrin 186 mg/dL (192-382) L 12/20/19 07:47 Ferritin 356.8 ng/mL (11.0-306.8) H 12/20/19 07:47 Total Bilirubin 1.5 mg/dL (0.2-1.0) H 12/20/19 07:47 AST 14 IU/L (10-42) 12/20/19 07:47 ALT 10 IU/L (10-60) 12/20/19 07:47 Alkaline Phosphatase 99 IU/L (42-121) 12/20/19 07:47 Total Creatine Kinase 64 IU/L (22-269) 12/20/19 07:47 Troponin I High Sens 16.5 ng/L (2.3-14.8) H* 12/20/19 18:45 C-Reactive Protein 26.3 mg/dL (0-1.0) H 12/23/19 04:40 Total Protein 8.7 g/dL (6.7-8.2) H 12/20/19 07:47 Albumin 3.4 g/dL (3.2-5.5) 12/20/19 07:47 Globulin 5.3 g/dL (2.1-4.2) H 12/20/19 07:47 Albumin/Globulin Ratio 0.6 (1.0-2.2) L 12/20/19 07:47 TSH 1.59 uIU/mL (0.34-5.60) 12/20/19 07:47 Urine Color YELLOW 12/20/19 08:35 Urine Clarity CLEAR (CLEAR) 12/20/19 08:35 Urine pH 5.0 PH (5.0-7.5) 12/20/19 08:35 Ur Specific [place] 1.020 (1.002-1.030) 12/20/19 08:35 Urine Protein TRACE mg/dL (NEGATIVE) 12/20/19 08:35 Urine Glucose (UA) 250 mg/dL (NEGATIVE) H 12/20/19 08:35 Urine Ketones TRACE mg/dL (NEGATIVE) 12/20/19 08:35 Urine Occult Blood SMALL (NEGATIVE) H 12/20/19 08:35 Urine Nitrite NEGATIVE (NEGATIVE) 12/20/19 08:35 Urine Bilirubin NEGATIVE (NEGATIVE) 12/20/19 08:35 Urine Urobilinogen 0.2 (NORMAL) E.U./dL (NORMAL) 12/20/19 08:35 Ur Leukocyte Esterase NEGATIVE (NEGATIVE) 12/20/19 08:35 Urine RBC 0-5 /HPF (0-5) 12/20/19 08:35 Urine WBC 0-3 /HPF (0-5) 12/20/19 08:35 Ur Squamous Epith Cells RARE Squamous (<= Few) 12/20/19 08:35 Amorphous Sediment Few /LPF 12/20/19 08:35 Urine Bacteria Few /HPF (None Seen) 12/20/19 08:35 Urine Culture Comments NOT INDICATED 12/20/19 08:35 Nasal Screen MRSA (PCR) NEGATIVE (NEGATIVE) 12/21/19 13:48 Rheumatoid Factor NEGATIVE (Negative) 12/23/19 04:40 Coronavirus (PCR) NEGATIVE 12/24/19 10:35 Influenza A (Rapid) Negative (Negative) 12/20/19 14:30 Influenza B (Rapid) Negative (Negative) 12/20/19 14:30 Blood Type A POSITIVE 12/21/19 08:00 Blood Type Recheck A POSITIVE 12/21/19 05:10 Antibody Screen NEGATIVE 12/21/19 08:00 Crossmatch IS Only See Detail 12/21/19 08:00
[2019-12-26] MEDS: ATORVASTATIN 10 MG TABLET PO SCH (21:39)
[2019-12-26] MEDS: LATANOPROST 0.005% EACHEYE SCH (21:43)
[2019-12-27] MEDS: SODIUM CHLORIDE FLUSH 0.9% 10 ML SYRINGE IVP SCH ×4 (01:33→23:55)
[2019-12-27] MEDS: oxyCODONE 5 MG TABLET PO PRN ×5 (01:49→20:31)
[2019-12-27] MEDS: ACETAMINOPHEN 325 MG TABLET PO PRN ×5 (01:49→20:32)
[2019-12-27] MEDS: INSULIN ASPART 300 UNIT/3 ML PEN SUBQ SCH ×7 (08:05→21:05)
[2019-12-27] MEDS: INSULIN GLARGINE 300 UNIT/3 ML PEN SUBQ SCH (08:06)
[2019-12-27] MEDS: TIMOLOL EACHEYE SCH ×2 (08:09→20:37)
[2019-12-27] MEDS: BRIMONIDINE 0.2% EACHEYE SCH ×2 (08:09→20:37)
[2019-12-27] MEDS: DORZOLAMIDE EACHEYE SCH ×2 (08:09→20:37)
[2019-12-27] MEDS: FUROSEMIDE 40 MG TABLET PO SCH (08:47)
[2019-12-27] MEDS: carvediloL 12.5 MG TABLET PO SCH ×2 (08:47→20:31)
[2019-12-27] MEDS: PREGABALIN 25 MG CAPSULE PO SCH ×2 (08:47→20:32)
[2019-12-27] MEDS: FERROUS SULFATE 325 MG TABLET PO SCH (08:47)
[2019-12-27 09:14] LABS: BASOPHILS % (AUTO) 0.7 %; EOSINOPHILS % (AUTO) 4.1 %; HGB - HEMOGLOBIN 8.1 g/dL (12.0-16.0); LYMPHOCYTES % (AUTO) 23.4 %; MEAN CORPUSCULAR HEMOGLOBIN 25.6 pg (27.0-31.0); MEAN CORPUSCULAR HGB CONC 29.7 g/dL (32.0-36.0); MEAN CORPUSCULAR VOLUME 86.1 fL (81.0-99.0); MONOCYTES % (AUTO) 5.9 %; NEUTROPHILS % (AUTO) 58.8 %; PLT - PLATELET COUNT 457 10^3/uL (130-450); RED BLOOD COUNT 3.17 10^6/uL (4.20-5.40); RED CELL DISTRIBUTION WIDTH 17.1 % (12.0-15.0)
[2019-12-27 09:18] LABS: CALCIUM 8.5 mg/dL (8.5-10.3); CREATININE 1.4 mg/dL (0.4-1.0)
[2019-12-27] MEDS: HEPARIN 5,000 UNIT/ML VIAL SUBQ SCH ×2 (09:20→21:05)
[2019-12-27] MEDS: NYSTATIN POWDER 15 GM TOP SCH ×2 (09:21→21:13)
[2019-12-27 09:41] LABS: ABNORMAL LYMPHS % (MANUAL) 0 %; BAND NEUTROPHILS % (MANUAL) 0 %
[2019-12-27 09:45] LABS: BASOPHILS # (MANUAL) 0.1 10^3/uL (0-0.1); BASOPHILS % (MANUAL) 1 %; DIFFERENTIAL COMMENT MANUAL DIFFERENTIAL; EOSINOPHILS # (MANUAL) 0.6 10^3/uL (0-0.7); LYMPHOCYTES # (MANUAL) 1.3 10^3/uL (1.5-3.5); LYMPHOCYTES % (MANUAL) 11 %; METAMYELOCYTES % (MANUAL) 2 %; MONOCYTES # (MANUAL) 0.2 10^3/uL (0.0-1.0); MYELOCYTES % (MANUAL) 3 %
[2019-12-27] MEDS: DOCUSATE SODIUM 250 MG CAPSULE PO SCH ×2 (10:29→20:31)
[2019-12-27] MEDS: polyethylene glycoL 3350 17 GM PACKET PO SCH (10:29)
--- NOTE | 2019-12-27 12:22 | PROVIDER PROGRESS NOTE ---
Assessment/Plan - Problem List (1) Weakness Assessment/Plan: She was able to participate much more with PT after her neuropathy pain was controlled. We will order OT to evaluate ADL functioning, especially given her swollen and red knuckles and joints of her hands. She is interested in rehab and qualifies for SNF. Will obtain a COVID swab test, which will be needed before discharge and acceptance at a SNF. (2) Inflammatory arthritis Assessment/Plan: ESR >100 Pain control planned. She needs Rheum eval, which she hopes to get after DCh. (3) Peripheral neuropathy Assessment/Plan: He has had significant improvement in this symptom since her Lyrica dose was increased since admission (4) Anemia of chronic disease Assessment/Plan: She remains on oral iron replacement. (5) Chronic kidney disease, stage IV (severe) Assessment/Plan: Abnormal creat but stable. (6) Insulin dependent diabetes mellitus Assessment/Plan: Continue cc diet and ss Insulin and Lantus. (7) Glaucoma Assessment/Plan: Continue with her eye drops. (8) Fever Assessment/Plan: Resolved. No real source of an infection was found, and may have been from severe arthritis. (9) Gram-positive bacteremia Assessment/Plan: [place] to be contaminant and no antibx needed - Current Meds Current Meds: Current Medications Generic Name Dose Route Start Last Admin Trade Name Nadeemq PRN Reason Stop Dose Admin Acetaminophen 650 mg 12/20/19 09:14 12/27/19 11:26 Tylenol PO 650 mg Q4HR PRN Administration Pain 1 to 4 Atorvastatin Calcium 20 mg 12/20/19 21:00 12/26/19 21:39 Lipitor PO 20 mg QPM TANA Administration Brimonidine Tartrate 1 drops 12/21/19 13:00 12/27/19 08:09 Alphagan P 0.2% Ophth Drops EACHEYE 1 drops BID TANA Administration Carvedilol 25 mg 12/24/19 21:00 12/27/19 08:47 Coreg PO 25 mg BID TANA Administration Docusate Sodium 250 - 500 mg 12/22/19 21:00 12/27/19 10:29 Colace 250mg Capsule PO Not Given BID TANA Dorzolamide/Timolol 1 drops 12/21/19 21:00 12/27/19 08:09 Cosopt EACHEYE 1 drops BID TANA Administration Ferrous Sulfate 325 mg 12/21/19 08:00 12/27/19 08:47 Feosol PO 325 mg DAILYWM TANA Administration Furosemide 80 mg 12/24/19 09:00 12/27/19 08:47 Lasix PO 80 mg DAILY TANA Administration Heparin Sodium (Porcine) 5,000 unit 12/20/19 21:00 12/27/19 09:20 SUBQ 5,000 unit BID TANA Administration Insulin Aspart 2 - 10 unit 12/21/19 12:46 12/27/19 12:02 Novolog SUBQ 2 unit 0800,1200,1700,2100 TANA Administration Protocol Insulin Aspart 10 unit 12/25/19 18:00 12/27/19 12:03 Novolog SUBQ 10 unit TIDWM TANA Administration Insulin Glargine 40 unit 12/22/19 09:00 12/27/19 08:06 Lantus Solostar SUBQ 40 unit DAILY TANA Administration Latanoprost 1 drops 12/20/19 21:00 12/26/19 21:43 Xalatan Ophth Drops EACHEYE 1 drops QPM TANA Administration Nystatin 1 applic 12/20/19 14:00 12/27/19 09:21 Nystop TOP 1 applic BID TANA Administration Oxycodone HCl 5 mg 12/22/19 16:33 12/27/19 11:26 Roxicodone PO 5 mg Q4H PRN Administration PAIN Polyethylene Glycol 17 gm 12/22/19 09:00 12/27/19 10:29 Miralax PO Not Given DAILY TANA Pregabalin 50 mg 12/23/19 21:00 12/27/19 08:47 Lyrica PO 50 mg BID TANA Administration Sodium Chloride 10 ml 12/20/19 17:00 12/27/19 11:27 Normal Saline Flush 0.9% IVP 10 ml 0100,0900,1700 TANA Administration - Lab Result Fish Bone Diagrams: 12/27/19 08:56 12/27/19 08:56 - Additional Planning My Orders: My Active Orders 12/27/19 Evaluate and Treat OT [OT] Routine 12/27/19 10:15 COVID-19 REFERENCE TEST Routine Subjective - Subjective Patient Reports: Resting Comfortably Objective Vital Signs: Vital Signs - 24 hr 12/26/19 12/26/19 12/27/19 17:00 20:09 01:34 Temperature 36.5 C 36.5 C 36.6 C Heart Rate [ 74 80 69 Brachial] Respiratory 20 20 16 Rate Blood Pressure 135/63 H [Left Brachial artery] Blood Pressure 147/64 H 143/90 H [Right Brachial artery] O2 Saturation 98 100 99 12/27/19 07:34 Temperature 36.6 C Heart Rate [ 68 Brachial] Respiratory 18 Rate Blood Pressure [Left Brachial artery] Blood Pressure 131/71 H [Right Brachial artery] O2 Saturation 100 Oxygen O2 Source Room air I&O (Last 24 Hrs): Intake and Output Totals x24h 12/25/19 12/26/19 12/27/19 23:59 23:59 23:59 Intake Total 1622 2020 360 Output Total 2450 2100 600 Balance -828 -80 -240 General: Alert HEENT: Mucous membr. moist/pink Neck: Supple Neuro: Non Focal Cardiovascular: Regular rate Respiratory: No respiratory distress Abdomen: Other (Obese with pannus) Extremities: No edema, Other - Results Results: Laboratory Results WBC 8.0 x10^3/uL (4.8-10.8) 12/27/19 08:56 RBC 3.17 10^6/uL (4.20-5.40) L 12/27/19 08:56 Hgb 8.1 g/dL (12.0-16.0) L 12/27/19 08:56 Hct 27.3 % (37.0-47.0) L 12/27/19 08:56 MCV 86.1 fL (81.0-99.0) 12/27/19 08:56 MCH 25.6 pg (27.0-31.0) L 12/27/19 08:56 MCHC 29.7 g/dL (32.0-36.0) L 12/27/19 08:56 RDW 17.1 % (12.0-15.0) H 12/27/19 08:56 Plt Count 457 10^3/uL (130-450) H 12/27/19 08:56 MPV 9.0 fL (7.9-10.8) 12/27/19 08:56 Neut # (Auto) Not Reportable 12/27/19 08:56 Lymph # (Auto) Not Reportable 12/27/19 08:56 [place] # (Auto) Not Reportable 12/27/19 08:56 Eos # (Auto) Not Reportable 12/27/19 08:56 Baso # (Auto) Not Reportable 12/27/19 08:56 Absolute Nucleated RBC Not Reportable 12/27/19 08:56 Total Counted 100 12/27/19 08:56 Band Neuts % (Manual) 0 % (0-10) 12/27/19 08:56 Reactive Lymphs % (Man) 5 % 12/27/19 08:56 Abnorm Lymph % (Manual) 0 % 12/27/19 08:56 Metamyelocytes % 2 % (-0) H 12/27/19 08:56 Myelocytes % 3 % (-0) H 12/27/19 08:56 Nucleated RBC % Not Reportable 12/27/19 08:56 Neutrophils # (Manual) 5.5 10^3/uL (1.5-6.6) 12/27/19 08:56 Lymphocytes # (Manual) 1.3 10^3/uL (1.5-3.5) L 12/27/19 08:56 Monocytes # (Manual) 0.2 10^3/uL (0.0-1.0) 12/27/19 08:56 Eosinophils # (Manual) 0.6 10^3/uL (0-0.7) 12/27/19 08:56 Basophils # (Manual) 0.1 10^3/uL (0-0.1) 12/27/19 08:56 Differential Comment MANUAL DIFFERENTIAL 12/27/19 08:56 Manual Slide Review Indicated 12/27/19 08:56 WBC Morphology NORMAL APPEARANCE (NORMAL) 12/25/19 04:40 Platelet Estimate INCREASED (>450,000) (NORMAL) 12/25/19 04:40 Platelet Morphology NORMAL APPEARANCE (NORMAL) 12/25/19 04:40 RBC Morph Micro Appear 2+ HYPOCHROMASIA (NORMAL) 12/25/19 04:40 ESR > 140 mm/Hr (0-30) H 12/22/19 05:25 Sodium 134 mmol/L (135-145) L 12/27/19 08:56 Potassium 4.1 mmol/L (3.5-5.0) 12/27/19 08:56 Chloride 98 mmol/L (101-111) L 12/27/19 08:56 Carbon Dioxide 24 mmol/L (21-32) 12/27/19 08:56 Anion Gap 12.0 (6-13) 12/27/19 08:56 BUN 33 mg/dL (6-20) H 12/27/19 08:56 Creatinine 1.4 mg/dL (0.4-1.0) H 12/27/19 08:56 Estimated GFR (MDRD) 38 (>89) L 12/27/19 08:56 Glucose 218 mg/dL (70-100) H 12/27/19 08:56 POC Whole Bld Glucose 141 mg/dL (70 - 100) H 12/27/19 11:01 Estimat Average Glucose 146 mg/dL (70-100) H 12/21/19 05:10 Hemoglobin A1c % 6.7 % (4.27-6.07) H 12/21/19 05:10 Lactic Acid 1.6 mmol/L (0.5-2.2) 12/20/19 07:47 Uric Acid 8.2 mg/dL (2.6-7.2) H 12/23/19 04:40 Calcium 8.5 mg/dL (8.5-10.3) 12/27/19 08:56 Phosphorus 3.8 mg/dL (2.5-4.6) 12/25/19 04:40 Magnesium 1.8 mg/dL (1.7-2.8) 12/25/19 04:40 Iron 13 ug/dL (28-170) L 12/20/19 07:47 TIBC 260 ug/dL (250-450) 12/20/19 07:47 % Saturation 5 % (20-50) L 12/20/19 07:47 Transferrin 186 mg/dL (192-382) L 12/20/19 07:47 Ferritin 356.8 ng/mL (11.0-306.8) H 12/20/19 07:47 Total Bilirubin 1.5 mg/dL (0.2-1.0) H 12/20/19 07:47 AST 14 IU/L (10-42) 12/20/19 07:47 ALT 10 IU/L (10-60) 12/20/19 07:47 Alkaline Phosphatase 99 IU/L (42-121) 12/20/19 07:47 Total Creatine Kinase 64 IU/L (22-269) 12/20/19 07:47 Troponin I High Sens 16.5 ng/L (2.3-14.8) H* 12/20/19 18:45 C-Reactive Protein 26.3 mg/dL (0-1.0) H 12/23/19 04:40 Total Protein 8.7 g/dL (6.7-8.2) H 12/20/19 07:47 Albumin 3.4 g/dL (3.2-5.5) 12/20/19 07:47 Globulin 5.3 g/dL (2.1-4.2) H 12/20/19 07:47 Albumin/Globulin Ratio 0.6 (1.0-2.2) L 12/20/19 07:47 TSH 1.59 uIU/mL (0.34-5.60) 12/20/19 07:47 Urine Color YELLOW 12/20/19 08:35 Urine Clarity CLEAR (CLEAR) 12/20/19 08:35 Urine pH 5.0 PH (5.0-7.5) 12/20/19 08:35 Ur Specific [place] 1.020 (1.002-1.030) 12/20/19 08:35 Urine Protein TRACE mg/dL (NEGATIVE) 12/20/19 08:35 Urine Glucose (UA) 250 mg/dL (NEGATIVE) H 12/20/19 08:35 Urine Ketones TRACE mg/dL (NEGATIVE) 12/20/19 08:35 Urine Occult Blood SMALL (NEGATIVE) H 12/20/19 08:35 Urine Nitrite NEGATIVE (NEGATIVE) 12/20/19 08:35 Urine Bilirubin NEGATIVE (NEGATIVE) 12/20/19 08:35 Urine Urobilinogen 0.2 (NORMAL) E.U./dL (NORMAL) 12/20/19 08:35 Ur Leukocyte Esterase NEGATIVE (NEGATIVE) 12/20/19 08:35 Urine RBC 0-5 /HPF (0-5) 12/20/19 08:35 Urine WBC 0-3 /HPF (0-5) 12/20/19 08:35 Ur Squamous Epith Cells RARE Squamous (<= Few) 12/20/19 08:35 Amorphous Sediment Few /LPF 12/20/19 08:35 Urine Bacteria Few /HPF (None Seen) 12/20/19 08:35 Urine Culture Comments NOT INDICATED 12/20/19 08:35 Nasal Screen MRSA (PCR) NEGATIVE (NEGATIVE) 12/21/19 13:48 Rheumatoid Factor NEGATIVE (Negative) 12/23/19 04:40 Cycl Citrul Peptide IgG <16 UNITS 12/23/19 04:40 Coronavirus (PCR) NEGATIVE 12/24/19 10:35 Influenza A (Rapid) Negative (Negative) 12/20/19 14:30 Influenza B (Rapid) Negative (Negative) 12/20/19 14:30 Blood Type A POSITIVE 12/21/19 08:00 Blood Type Recheck A POSITIVE 12/21/19 05:10 Antibody Screen NEGATIVE 12/21/19 08:00 Crossmatch IS Only See Detail 12/21/19 08:00
[2019-12-27] MEDS: ATORVASTATIN 10 MG TABLET PO SCH (20:32)
[2019-12-27] MEDS: LATANOPROST 0.005% EACHEYE SCH (20:34)
[2019-12-28] MEDS: ACETAMINOPHEN 325 MG TABLET PO PRN ×5 (01:31→21:03)
[2019-12-28] MEDS: oxyCODONE 5 MG TABLET PO PRN ×5 (01:32→21:03)
[2019-12-28] MEDS: FERROUS SULFATE 325 MG TABLET PO SCH (09:08)
[2019-12-28] MEDS: carvediloL 12.5 MG TABLET PO SCH ×2 (09:08→21:02)
[2019-12-28] MEDS: DOCUSATE SODIUM 250 MG CAPSULE PO SCH ×2 (09:08→21:03)
[2019-12-28] MEDS: PREGABALIN 25 MG CAPSULE PO SCH ×2 (09:09→21:03)
[2019-12-28] MEDS: DORZOLAMIDE EACHEYE SCH ×2 (09:09→21:06)
[2019-12-28] MEDS: BRIMONIDINE 0.2% EACHEYE SCH ×2 (09:09→21:06)
[2019-12-28] MEDS: FUROSEMIDE 40 MG TABLET PO SCH (09:09)
[2019-12-28] MEDS: TIMOLOL EACHEYE SCH ×2 (09:09→21:06)
[2019-12-28] MEDS: INSULIN ASPART 300 UNIT/3 ML PEN SUBQ SCH ×7 (09:10→21:10)
[2019-12-28] MEDS: INSULIN GLARGINE 300 UNIT/3 ML PEN SUBQ SCH (09:11)
[2019-12-28] MEDS: HEPARIN 5,000 UNIT/ML VIAL SUBQ SCH ×2 (09:17→21:11)
[2019-12-28] MEDS: SODIUM CHLORIDE FLUSH 0.9% 10 ML SYRINGE IVP SCH ×2 (10:57→21:01)
[2019-12-28] MEDS: NYSTATIN POWDER 15 GM TOP SCH ×2 (10:57→21:07)
[2019-12-28] MEDS: polyethylene glycoL 3350 17 GM PACKET PO SCH (10:57)
--- NOTE | 2019-12-28 13:25 | PROVIDER PROGRESS NOTE ---
Assessment/Plan - Problem List (1) Weakness Assessment/Plan: She continues to progress daily with PT and is a candidate for SNF. She has been accepted to go tomorrow to [place]. The COVID is negative, result returned today. She is medically stable for [facility]. (2) Inflammatory arthritis Assessment/Plan: ESR is greater than 100. Currently her pain is under control She knows she needs further rheumatology evaluation. OT was ordered to evaluate ADL functioning, especially given her swollen and red knuckles and joints of her fingers. (3) Peripheral neuropathy Assessment/Plan: Her knee and leg pain has resolved completely with the slightly increased dose of Lyrica, thius she is participating with PT. Continue with this present Lyrica dose (4) Anemia of chronic disease Assessment/Plan: As per history. Continue with her iron replacement (5) Chronic kidney disease, stage IV (severe) Assessment/Plan: Abnormal but stable creatinine (6) Insulin dependent diabetes mellitus Assessment/Plan: Continue with carb controlled diet, long-acting insulin and sliding scale regular insulin coverage. (7) Glaucoma Assessment/Plan: Continue with her eyedrops as prescribed. (8) Fever Assessment/Plan: Resolved (9) Gram-positive bacteremia Assessment/Plan: It was felt to be a contaminant, she is not on antibiotics. - Current Meds Current Meds: Current Medications Generic Name Dose Route Start Last Admin Trade Name Freq PRN Reason Stop Dose Admin Acetaminophen 650 mg 12/20/19 09:14 12/28/19 10:55 Tylenol PO 650 mg Q4HR PRN Administration Pain 1 to 4 Atorvastatin Calcium 20 mg 12/20/19 21:00 12/27/19 20:32 Lipitor PO 20 mg QPM TANA Administration Brimonidine Tartrate 1 drops 12/21/19 13:00 12/28/19 09:09 Alphagan P 0.2% Ophth Drops EACHEYE 1 drops BID TANA Administration Carvedilol 25 mg 12/24/19 21:00 12/28/19 09:08 Coreg PO 25 mg BID TANA Administration Docusate Sodium 250 - 500 mg 12/22/19 21:00 12/28/19 09:08 Colace 250mg Capsule PO 250 mg BID TANA Administration Dorzolamide/Timolol 1 drops 12/21/19 21:00 12/28/19 09:09 Cosopt EACHEYE 1 drops BID TANA Administration Ferrous Sulfate 325 mg 10/01/20 08:00 12/28/19 09:08 Feosol PO 325 mg DAILYWM TANA Administration Furosemide 80 mg 12/24/19 09:00 12/28/19 09:09 Lasix PO 80 mg DAILY TANA Administration Heparin Sodium (Porcine) 5,000 unit 12/20/19 21:00 12/28/19 09:17 SUBQ 5,000 unit BID TANA Administration Insulin Aspart 2 - 10 unit 12/21/19 12:46 12/28/19 12:22 Novolog SUBQ 4 unit 0800,1200,1700,2100 TANA Administration Protocol Insulin Aspart 10 unit 12/25/19 18:00 12/28/19 12:22 Novolog SUBQ 10 unit TIDWM TANA Administration Insulin Glargine 40 unit 12/22/19 09:00 12/28/19 09:11 Lantus Solostar SUBQ 40 unit DAILY TANA Administration Latanoprost 1 drops 12/20/19 21:00 12/27/19 20:34 Xalatan Ophth Drops EACHEYE 1 drops QPM TANA Administration Nystatin 1 applic 12/20/19 14:00 12/28/19 10:57 Nystop TOP 1 applic BID TANA Administration Oxycodone HCl 5 mg 12/22/19 16:33 12/28/19 10:55 Roxicodone PO 5 mg Q4H PRN Administration PAIN Polyethylene Glycol 17 gm 12/22/19 09:00 12/28/19 10:57 Miralax PO Not Given DAILY TANA Pregabalin 50 mg 12/23/19 21:00 12/28/19 09:09 Lyrica PO 50 mg BID TANA Administration Sodium Chloride 10 ml 12/20/19 17:00 12/28/19 10:57 Normal Saline Flush 0.9% IVP 10 ml 0100,0900,1700 TANA Administration - Lab Result Fish Bone Diagrams: 12/27/19 08:56 12/27/19 08:56 Subjective - Subjective Patient Reports: Resting Comfortably, No Complaints Objective Vital Signs: Vital Signs - 24 hr 12/27/19 12/28/19 12/28/19 15:34 00:11 08:13 Temperature 36.4 C L 36.6 C 36.4 C L Heart Rate [ 69 80 70 Brachial] Heart Rate [ Sitting] Heart Rate [ Supine] Respiratory 20 16 Rate Blood Pressure 131/49 H [Left Brachial artery] Blood Pressure 132/54 H 125/85 H [Right Brachial artery] Blood Pressure [Sitting] Blood Pressure [Supine] O2 Saturation 100 98 96 12/28/19 13:12 Temperature Heart Rate [ Brachial] Heart Rate [ 82 Sitting] Heart Rate [ 83 Supine] Respiratory Rate Blood Pressure [Left Brachial artery] Blood Pressure [Right Brachial artery] Blood Pressure 146/58 H [Sitting] Blood Pressure 146/58 H [Supine] O2 Saturation Oxygen O2 Source Room air I&O (Last 24 Hrs): Intake and Output Totals x24h 12/26/19 12/27/19 12/28/19 23:59 23:59 23:59 Intake Total 2019 1622 400 Output Total 20990 1450 Balance -80 172 -1050 General: Alert, Oriented x3 HEENT: EOMI, Mucous membr. moist/pink Neck: Supple, No JVD Neuro: Alert, Non Focal, Oriented Times 3 Cardiovascular: Regular rate Respiratory: No respiratory distress Abdomen: Soft, Other (Obese with pannus.) Extremities: No edema, Other (She has lymphedema and obesity of her lower extremities) - Results Results: Laboratory Results WBC 8.0 x10^3/uL (4.8-10.8) 12/27/19 08:56 RBC 3.17 10^6/uL (4.20-5.40) L 12/27/19 08:56 Hgb 8.1 g/dL (12.0-16.0) L 12/27/19 08:56 Hct 27.3 % (37.0-47.0) L 12/27/19 08:56 MCV 86.1 fL (81.0-99.0) 12/27/19 08:56 MCH 25.6 pg (27.0-31.0) L 12/27/19 08:56 MCHC 29.7 g/dL (32.0-36.0) L 12/27/19 08:56 RDW 17.1 % (12.0-15.0) H 12/27/19 08:56 Plt Count 457 10^3/uL (130-450) H 12/27/19 08:56 MPV 9.0 fL (7.9-10.8) 12/27/19 08:56 Neut # (Auto) Not Reportable 12/27/19 08:56 Lymph # (Auto) Not Reportable 12/27/19 08:56 Young # (Auto) Not Reportable 12/27/19 08:56 Eos # (Auto) Not Reportable 12/27/19 08:56 Baso # (Auto) Not Reportable 12/27/19 08:56 Absolute Nucleated RBC Not Reportable 12/27/19 08:56 Total Counted 100 12/27/19 08:56 Band Neuts % (Manual) 0 % (0-10) 12/27/19 08:56 Reactive Lymphs % (Man) 5 % 12/27/19 08:56 Abnorm Lymph % (Manual) 0 % 12/27/19 08:56 Metamyelocytes % 2 % (-0) H 12/27/19 08:56 Myelocytes % 3 % (-0) H 12/27/19 08:56 Nucleated RBC % Not Reportable 12/27/19 08:56 Neutrophils # (Manual) 5.5 10^3/uL (1.5-6.6) 12/27/19 08:56 Lymphocytes # (Manual) 1.3 10^3/uL (1.5-3.5) L 12/27/19 08:56 Monocytes # (Manual) 0.2 10^3/uL (0.0-1.0) 12/27/19 08:56 Eosinophils # (Manual) 0.6 10^3/uL (0-0.7) 12/27/19 08:56 Basophils # (Manual) 0.1 10^3/uL (0-0.1) 12/27/19 08:56 Differential Comment MANUAL DIFFERENTIAL 12/27/19 08:56 Manual Slide Review Indicated 12/27/19 08:56 WBC Morphology NORMAL APPEARANCE (NORMAL) 12/25/19 04:40 Platelet Estimate INCREASED (>450,000) (NORMAL) 12/25/19 04:40 Platelet Morphology NORMAL APPEARANCE (NORMAL) 12/25/19 04:40 RBC Morph Micro Appear 2+ HYPOCHROMASIA (NORMAL) 12/25/19 04:40 ESR > 140 mm/Hr (0-30) H 12/22/19 05:25 Sodium 134 mmol/L (135-145) L 12/27/19 08:56 Potassium 4.1 mmol/L (3.5-5.0) 12/27/19 08:56 Chloride 98 mmol/L (101-111) L 12/27/19 08:56 Carbon Dioxide 24 mmol/L (21-32) 12/27/19 08:56 Anion Gap 12.0 (6-13) 12/27/19 08:56 BUN 33 mg/dL (6-20) H 12/27/19 08:56 Creatinine 1.4 mg/dL (0.4-1.0) H 12/27/19 08:56 Estimated GFR (MDRD) 38 (>89) L 12/27/19 08:56 Glucose 218 mg/dL (70-100) H 12/27/19 08:56 POC Whole Bld Glucose 193 mg/dL (70 - 100) H 12/28/19 11:25 Estimat Average Glucose 146 mg/dL (70-100) H 12/21/19 05:10 Hemoglobin A1c % 6.7 % (4.27-6.07) H 12/21/19 05:10 Lactic Acid 1.6 mmol/L (0.5-2.2) 12/20/19 07:47 Uric Acid 8.2 mg/dL (2.6-7.2) H 12/23/19 04:40 Calcium 8.5 mg/dL (8.5-10.3) 12/27/19 08:56 Phosphorus 3.8 mg/dL (2.5-4.6) 12/25/19 04:40 Magnesium 1.8 mg/dL (1.7-2.8) 12/25/19 04:40 Iron 13 ug/dL (28-170) L 12/20/19 07:47 TIBC 260 ug/dL (250-450) 12/20/19 07:47 % Saturation 5 % (20-50) L 12/20/19 07:47 Transferrin 186 mg/dL (192-382) L 12/20/19 07:47 Ferritin 356.8 ng/mL (11.0-306.8) H 12/20/19 07:47 Total Bilirubin 1.5 mg/dL (0.2-1.0) H 12/20/19 07:47 AST 14 IU/L (10-42) 12/20/19 07:47 ALT 10 IU/L (10-60) 12/20/19 07:47 Alkaline Phosphatase 99 IU/L (42-121) 12/20/19 07:47 Total Creatine Kinase 64 IU/L (22-269) 12/20/19 07:47 Troponin I High Sens 16.5 ng/L (2.3-14.8) H* 12/20/19 18:45 C-Reactive Protein 26.3 mg/dL (0-1.0) H 12/23/19 04:40 Total Protein 8.7 g/dL (6.7-8.2) H 12/20/19 07:47 Albumin 3.4 g/dL (3.2-5.5) 12/20/19 07:47 Globulin 5.3 g/dL (2.1-4.2) H 12/20/19 07:47 Albumin/Globulin Ratio 0.6 (1.0-2.2) L 12/20/19 07:47 TSH 1.59 uIU/mL (0.34-5.60) 12/20/19 07:47 Urine Color YELLOW 12/20/19 08:35 Urine Clarity CLEAR (CLEAR) 12/20/19 08:35 Urine pH 5.0 PH (5.0-7.5) 12/20/19 08:35 Ur Specific [place] 1.020 (1.002-1.030) 12/20/19 08:35 Urine Protein TRACE mg/dL (NEGATIVE) 12/20/19 08:35 Urine Glucose (UA) 250 mg/dL (NEGATIVE) H 12/20/19 08:35 Urine Ketones TRACE mg/dL (NEGATIVE) 12/20/19 08:35 Urine Occult Blood SMALL (NEGATIVE) H 12/20/19 08:35 Urine Nitrite NEGATIVE (NEGATIVE) 12/20/19 08:35 Urine Bilirubin NEGATIVE (NEGATIVE) 12/20/19 08:35 Urine Urobilinogen 0.2 (NORMAL) E.U./dL (NORMAL) 12/20/19 08:35 Ur Leukocyte Esterase NEGATIVE (NEGATIVE) 12/20/19 08:35 Urine RBC 0-5 /HPF (0-5) 12/20/19 08:35 Urine WBC 0-3 /HPF (0-5) 12/20/19 08:35 Ur Squamous Epith Cells RARE Squamous (<= Few) 12/20/19 08:35 Amorphous Sediment Few /LPF 12/20/19 08:35 Urine Bacteria Few /HPF (None Seen) 12/20/19 08:35 Urine Culture Comments NOT INDICATED 12/20/19 08:35 Nasal Screen MRSA (PCR) NEGATIVE (NEGATIVE) 12/21/19 13:48 Rheumatoid Factor NEGATIVE (Negative) 12/23/19 04:40 Cycl Citrul Peptide IgG <16 UNITS 12/23/19 04:40 Coronavirus (PCR) NEGATIVE 12/24/19 10:35 Influenza A (Rapid) Negative (Negative) 12/20/19 14:30 Influenza B (Rapid) Negative (Negative) 12/20/19 14:30 Blood Type A POSITIVE 12/21/19 08:00 Blood Type Recheck A POSITIVE 12/21/19 05:10 Antibody Screen NEGATIVE 12/21/19 08:00 Crossmatch IS Only See Detail 12/21/19 08:00
[2019-12-28] MEDS: ATORVASTATIN 10 MG TABLET PO SCH (21:02)
[2019-12-28] MEDS: LATANOPROST 0.005% EACHEYE SCH (21:07)
[2019-12-29] MEDS: SODIUM CHLORIDE FLUSH 0.9% 10 ML SYRINGE IVP SCH ×2 (00:20→08:30)
[2019-12-29] MEDS: ACETAMINOPHEN 325 MG TABLET PO PRN ×3 (01:00→11:03)
[2019-12-29] MEDS: oxyCODONE 5 MG TABLET PO PRN ×3 (01:00→11:04)
--- NOTE | 2019-12-29 07:50 | Discharge Plan ---
"Discharge Plan for SNF / [facility] - Discharge Plan And Transition Orders Problem Reviewed?: Yes Disposition: 03 [facility] DC/Xfer Condition: Stable Allergies and Adverse Reactions: Allergies Allergy/AdvReac Type Severity Reaction Status Date / Time No Known Drug Allergies Allergy Verified 07/19/18 08:19 Health Concerns: She was admitted for a fever and lower extremity weakness. There was initially no obvious source of infection and she was not treated with antibiotics. One of her blood cultures grew coag negative staph and she was empirically started on vancomycin. Repeat cultures came back negative. It was felt that the initial blood culture was likely a contaminant and this was discussed with infectious disease at the [facility]. Antibiotics were discontinued. She remained afebrile throughout the hospitalization and her white count remained normal. She was checked for COVID 19 and influenza and both of these were also negative. An ESR and CRP were checked which are both significantly elevated at greater than 140 and 27 respectively. It was felt this was likely secondary to an inflammatory arthritis. Right hand x-ray was suggestive of an inflammatory arthritis. Given her pain was relatively well controlled, she was not started on DMARD therapy given her comorbidities and lack of a clear diagnosis. MARTHA has been ordered and is pending. Her rheumatoid factor is negative as well as anti- CCP. It is recommended that she follow-up with a glass cut off tender to discuss diagnosis and treatment options. Her home dose of Lyrica was increased given her peripheral neuropathy and this helped to treat her pain quite well. She was also anemic during this hospitalization and required 1 unit of packed red blood cell. Iron studies were suggestive of anemia of chronic disease as well as likely component of iron deficiency anemia. Her stool was negative for bleeding and she did not want endoscopy so this was not pursued. Her hemoglobin has remained stable since transfusion. She will be discharged on oral iron supplementation. - SNF / PENITENTIARY Transition Orders Admit to (Facility): [facility] Discharge Diagnosis: Fever - resolved. Inflammatory arthritis - stable. Gram-positive bacteremia - resolved. Weakness - ongoing. Chronic kidney disease, stage III - stable. Insulin-dependent diabetes mellitus - stable. Peripheral neuropathy - stable. Anemia of chronic disease - stable. Glaucoma - stable. Medicare Certification Statement: I certify that [facility] retirement care is medically necessary on a continuing basis for any of the conditions for which she/he is receiving care during hospitalization. Notify PCP of admission and forward orders to primary provider for signature. Other Notification Orders: Call PCP immediately if patient develops dyspnea, chest pain/tightness or edema. House Bowel Program: Yes Additional Bowel Program Orders: If no BM after 2 days, nurse may give M.O.M. 30ml PO PRN and/or ducolax Supp 1 AR and/or OSMAR 250mg P.O., and/or senna 1-2 tabs PO. On day 3 nurse may give repeat above order until residents constipation is resolved. Medication Orders: PLEASE REFER TO THE DISCHARGE MEDICATION LIST. Insulin Orders?: Yes - Medications New Prescriptions: Ferrous Fumarate 324 mg PO DAILY #30 tablet Insulin Glargine [Lantus Solostar] 40 unit SUBQ DAILY #5 pen Pregabalin [Lyrica] 50 mg PO BID #120 capsule Insulin Aspart [NovoLOG] 10 unit SUBQ TIDWM #5 pen - Diet Type: No added sugar Texture: Regular Liquids: Thin - Therapies | Activity Therapy: Evaluation | Treat if indicated: PT, OT Activity: No Restrictions Weight Bearing: Full Weight Follow Up: She will need a referral to rheumatology for the suspected inflammatory arthritis. Differential includes arthritis versus Psoriatic arthritis. She will also need repeat iron studies in the future as well as CBC to ensure her hemoglobin is stable."
--- NOTE | 2019-12-29 07:56 | DISCHARGE SUMMARY ---
"Discharge Summary Admit Date: 12/20/19 Discharge Date: 12/29/19 Discharging Provider: Thuan Decker Primary Care Provider: Lucinda Sweet Code Status: Do Not Attempt Resuscitation Condition at Discharge: Stable Discharge Disposition: SNF DC/Xfer Discharge Facility Name: [facility] - DIAGNOSES Admission Diagnoses: Fever Weakness Chronic kidney disease, stage IV Insulin-dependent diabetes mellitus Anemia of chronic disease Peripheral neuropathy Glaucoma Discharge Diagnoses with Status of Each Condition: Fever - resolved. Inflammatory arthritis - stable. Gram-positive bacteremia - resolved. Weakness - ongoing. Chronic kidney disease, stage III - stable. Insulin-dependent diabetes mellitus - stable. Peripheral neuropathy - stable. Anemia of chronic disease - stable. Glaucoma - stable. - HPI History of Present Illness: This is a very pleasant 64-year-old female with a past medical history significant for insulin-dependent diabetes, hypertension, peripheral neuropathy, chronic kidney disease stage IV, glaucoma who presents today complaining of lower extremity weakness. She states this is been going on for the past few months intermittently. The episodes would normally lasts a few days and then she would return back to her usual strength. She states this would normally occur once every 2 months or so. Today she felt more weak than normal and was unable to get herself out of bed. She would normally call paramedics for assistance and once they would help her get up then she would do well on her own but today she was much weaker than usual. She reports muscle weakness in her bilateral lower extremities. She states she walks with a walker at baseline. She does have chronic neuropathy for which she takes Lyrica. She reports this is not worse than usual. She reports no dysuria, urgency, frequency. She denies any fevers or chills. Reports no chest pain, dyspnea, cough. Reports no recent sick contacts. She states she has been home for the past few months and she has a cousin who will deliver her food every 6 weeks. She last saw her cousin about 3 weeks ago. She reports no obvious wounds or lesions. In the emergency department, she was found to be febrile with a temperature of 38.4 C. Her heart is 101. Her blood pressure is 139/66. She was not tachypneic and saturating well on room air. Labs were significant for a white count of 13.1 with a left shift. Her hemoglobin was 9.5. Her creatinine was at 2.0 which is her baseline. Her lactic acid was normal at 1.6. Her urinalysis and chest x-ray were unremarkable. Given her weakness and fever, medicine was consulted for admission. I did discuss goals of care with the patient and she would like to be a DNR. - CONSULTS | PROCEDURES Consultations: Social Work, PT, OT - HOSPITAL COURSE Hospital Course: She was admitted for a fever and lower extremity weakness. There was initially no obvious source of infection and she was not treated with antibiotics. One of her blood cultures grew coag negative staph and she was empirically started on vancomycin. Repeat cultures came back negative. It was felt that the initial blood culture was likely a contaminant and this was discussed with infectious disease at the [facility]. Antibiotics were discontinued. She remained afebrile throughout the hospitalization and her white count remained normal. She was checked for COVID 19 and influenza and both of these were also negative. An ESR and CRP were checked which are both significantly elevated at greater than 140 and 27 respectively. It was felt this was likely secondary to an inflammatory arthritis. Right hand x-ray was suggestive of an inflammatory arthritis. Given her pain was relatively well controlled, she was not started on DMARD therapy given her comorbidities and lack of a clear diagnosis. MARTHA has been ordered and is pending. Her rheumatoid factor is negative as well as anti- CCP. It is recommended that she follow-up with a gas plant operator to discuss diagnosis and treatment options. Her home dose of Lyrica was increased given her peripheral neuropathy and this helped to treat her pain quite well. She was also anemic during this hospitalization and required 1 unit of packed red blood cell. Iron studies were suggestive of anemia of chronic disease as well as likely component of iron deficiency anemia. Her stool was negative for bleeding and she did not want endoscopy so this was not pursued. Her hemoglobin has remained stable since transfusion. She will be discharged on oral iron supplementation. - ALLERGIES Allergies/Adverse Reactions: Allergies Allergy/AdvReac Type Severity Reaction Status Date / Time No Known Drug Allergies Allergy Verified 07/19/18 08:19 - MEDICATIONS Home Medications: Ambulatory Orders Medication Instructions Recorded Confirmed Glucosam/Chondr-Msm6/Manganese 2 each PO DAILY 04/26/15 12/21/19 [Glucosamine-Chondroitin Sftgl] Multivitamin [Multivitamins] 1 each PO DAILY 04/26/15 12/21/19 oxyCODONE/ACET 5/325 [Percocet 5 1 each PO Q4-6H PRN 07/19/18 12/20/19 mg/325 mg] Atorvastatin Calcium 20 mg PO DAILY PM 12/20/19 12/20/19 Doxylamine Succinate [Unisom] 25 mg PO DAILY PM 12/20/19 12/20/19 Latanoprost 1 drops OP DAILY PM 12/20/19 12/20/19 Brimonidine 0.2% Ophth Drops 1 drops EACHEYE BID 12/21/19 12/21/19 [Alphagan P 0.2% Ophth Drops] Carvedilol [Coreg] 25 mg PO BID 12/21/19 12/21/19 Dorzolamide HCl/Timolol Maleat 1 drops EACHEYE BID 12/21/19 12/21/19 [Dorzolamide-Timolol Eye Drops] Furosemide 80 mg PO DAILY 12/21/19 12/21/19 Ferrous Fumarate 324 mg PO DAILY #30 tablet 12/29/19 Insulin Aspart [NovoLOG] 10 unit SUBQ TIDWM #5 pen 12/29/19 Insulin Glargine [Lantus Solostar] 40 unit SUBQ DAILY #5 pen 12/29/19 Pregabalin [Lyrica] 50 mg PO BID #120 capsule 12/29/19 - PHYSICAL EXAM AT DISCHARGE General Appearance: positive: No acute distress, Alert Eyes Bilateral: positive: Normal inspection, Conjunctivae nml ENT: positive: ENT inspection nml Neck: positive: Nml inspection Respiratory: positive: No respiratory distress. negative: Wheezes, Rales Cardiovascular: positive: No murmur. negative: Irregularly irregular, Tachycardia, Bradycardia, Systolic murmur Abdomen: positive: Non-tender, No distention. negative: Tenderness, Guarding, Rebound Skin: positive: No rash, Warm, Dry Extremities: positive: Pedal edema (Trace in bilateral lower extremities.) Neurologic/Psychiatric: positive: Oriented x3, Motor nml. negative: Disoriented to person, Disoriented to place, Disoriented to time Physical Exam Other/Comments: Vital Signs - 24 hr 12/29/19 12/29/19 00:25 09:43 Temperature 36.6 C 36.6 C Heart Rate [ 78 69 Brachial] Respiratory 16 20 Rate Blood Pressure 147/60 H 125/65 [Right Brachial artery] O2 Saturation 99 100 - LABS Result Diagrams: 12/27/19 08:56 12/27/19 08:56 - DIAGNOSTIC IMAGING Diagnostic Imaging Results: Final report reviewed - FOLLOW UP Follow Up: It was recommended that she follow-up with a gas plant operator on outpatient basis given the concern for inflammatory arthritis. She will also continue to follow- up with her sample selector. - TIME SPENT Time Spent in Discharge (Minutes): 37"
[2019-12-29] MEDS: PREGABALIN 25 MG CAPSULE PO SCH (08:12)
[2019-12-29] MEDS: FERROUS SULFATE 325 MG TABLET PO SCH (08:12)
[2019-12-29] MEDS: carvediloL 12.5 MG TABLET PO SCH (08:13)
[2019-12-29] MEDS: FUROSEMIDE 40 MG TABLET PO SCH (08:14)
[2019-12-29] MEDS: TIMOLOL EACHEYE SCH (08:15)
[2019-12-29] MEDS: BRIMONIDINE 0.2% EACHEYE SCH (08:15)
[2019-12-29] MEDS: DORZOLAMIDE EACHEYE SCH (08:15)
[2019-12-29] MEDS: DOCUSATE SODIUM 250 MG CAPSULE PO SCH (08:16)
[2019-12-29] MEDS: NYSTATIN POWDER 15 GM TOP SCH (08:16)
[2019-12-29] MEDS: polyethylene glycoL 3350 17 GM PACKET PO SCH (08:17)
[2019-12-29] MEDS: INSULIN ASPART 300 UNIT/3 ML PEN SUBQ SCH ×4 (08:19→11:17)
[2019-12-29] MEDS: INSULIN GLARGINE 300 UNIT/3 ML PEN SUBQ SCH (08:20)
[2019-12-29] MEDS: HEPARIN 5,000 UNIT/ML VIAL SUBQ SCH (08:24)
[2019-12-29 09:44] VITALS: BP 125/65
--- NOTE | 2019-12-29 14:30 | ADVANCE CARE PLANNING NOTE ---
Advance Care Planning - Planning Encounter Date: 12/29/19 Time: 14:29 Purpose: Complete a POLST form. Parties in Attendance: The patient and myself. Decisional Capacity of the Patient: She has capacity to make her own medical decisions. - Diagnosis for Encounter (1) Weakness Summary: She was hospitalized for weakness likely due to physical deconditioning secondar y to her severe peripheral neuropathy which has caused to be more sedentary. She has progressed quite well during his hospitalization with physical therapy and an increased dose of Lyrica. (2) Chronic kidney disease, stage IV (severe) Summary: She has chronic kidney disease stage IV likely secondary to her diabetes. Her renal function has been stable. She follows up with her wood shop teacher on a consistent basis. She has made it clear today that she does not want dialysis. - Encounter Subjective/Patient's Story: The patient lives at home alone and she reports that she has been physically declining over the past few months. She has had intermittent weakness which requires her to call EMS and with their assistance she is able to get up out of bed. This time she was so weak that she came to the emergency department. She lives alone and has required her cousin to drop off groceries every 6 weeks as she cannot leave the house. She has been so weak at home that she is unable to get to the door and has been unable to participate in Meals on Wheels. Objective/Medical Story: She follows up with her wood shop teacher who is also her primary care provider. She has significant neuropathy which has been relatively stable with Lyrica. She was hospitalized at this time for a fever and generalized weakness. There was concern for possible bacteremia but this was felt to be a contaminant. It is likely she has an inflammatory arthritis although the diagnosis exactly is not clear. Her home dose of Lyrica was increased given her neuropathy and she has been doing quite well with physical therapy since then. She states this is the most active she has been in quite some time and she is very happy with the progress that she has been making. Goals of Care: She made it clear on admission that she wants to be a DNR and further discussion today states that this remains her wish. She does not want CPR, intubation or any procedures. She does not want dialysis. She is okay with hospitalization and medical treatment but does not want aggressive measures. Plan: A POLST form has been completed reflecting her wishes. She is a DNR with limited interventions. She wants no procedures including central lines and other minor procedures like colonoscopy/endoscopies. She does not want dialysis. She is okay with blood products and antibiotics. She does not want artificial nutrition. Code Status: Do Not Attempt Resuscitation Time spent on advance care plannin
[2019-12-30 06:56] LABS: ANA SCREEN NEGATIVE (NEGATIVE)
== END 2019-12-29 14:51 | DRG 864 ==
LOC: EDUNIT# → ED 06:44 → MS2 09:09 → OBSVTOIN 12-21 12:14
PROVIDERS: ADMIT Internal Medicine; ATTEND Internal Medicine
PROC: 30233N1 Transfusion of Nonautologous Red Blood Cells into Peripheral Vein, Percutaneous Approach (ICD-10-PCS; principal; 2019-12-22)
DX: R50.9 Fever, unspecified (principal); Z68.42 Body mass index [BMI] 45.0-49.9, adult; N18.4 Chronic kidney disease, stage 4 (severe); I12.9 Hypertensive chronic kidney disease with stage 1 through stage 4 chronic kidney disease, or unspecified chronic kidney disease; E11.22 Type 2 diabetes mellitus with diabetic chronic kidney disease; R65.10 Systemic inflammatory response syndrome (SIRS) of non-infectious origin without acute organ dysfunction; D64.9 Anemia, unspecified; Z20.828 Contact with and (suspected) exposure to other viral communicable diseases; Z79.4 Long term (current) use of insulin; E11.42 Type 2 diabetes mellitus with diabetic polyneuropathy; H40.9 Unspecified glaucoma; D63.1 Anemia in chronic kidney disease; R53.1 Weakness; Z66 Do not resuscitate; M06.4 Inflammatory polyarthropathy; D50.9 Iron deficiency anemia, unspecified; M19.90 Unspecified osteoarthritis, unspecified site; D72.829 Elevated white blood cell count, unspecified; R79.82 Elevated C-reactive protein (CRP); R70.0 Elevated erythrocyte sedimentation rate; E66.9 Obesity, unspecified; M06.9 Rheumatoid arthritis, unspecified
CPT/HCPCS: 36415; 51701; 71045; 73130; 73562; 73610; 80048; 80053; 81001; 82272; 82550; 82728; 83036; 83540; 83605; 83735; 84100; 84443; 84466; 84484; 84550; 85014; 85018; 85025; 85651; 86038; 86140; 86200; 86430; 86850; 86900; 86901; 86920; 87040; 87077; 87181; 87275; 87276; 87640; 93306; 96372; 97110; 97162; 97166; 97530; 99285; A9270; G0378; J1815; J3370; J7120; J7512; P9016; U0004; 80202; 87086

== ENCOUNTER 2020-02-24 12:12 | Outpatient (CLI) | payer MEDICARE, OTHER | END 2020-02-24 12:13 | disposition critical access hospital (66) | LOC: EMS 12:12 | PROVIDERS: ATTEND Surgery | DX: Z74.2 Need for assistance at home and no other household member able to render care (principal) | CPT/HCPCS: A0425; A0429 ==

== ENCOUNTER 2020-02-24 12:41 | Emergency (ER) | payer MEDICARE, OTHER ==
--- NOTE | 2020-02-24 13:00 | ED Physician Documentation ---
History of Present Illness - Stated complaint Stated Complaint: WEAKNESS - Chief complaint Chief Complaint: General - History obtained from History obtained from: Patient - Additonal information Additional information: 64-year-old woman admitted here in early December for generalized weakness. Had false positive blood cultures and eventually was discharged to [facility] in [place] where she did very well. She states that her exercise tolerance was not terrible with the physical therapists and was discharged home yesterday. At home she did not have the equipment yet for ambulation because she had not ordered it yet and basically has not been able to walk since she got home. She says her feet went numb on the ride back from [place] to her house and really have not woken up yet. She is generally weak in the lower extremities and unable to walk now. There is no pain. No shortness of breath. No fevers or cough. She did have coronavirus while in the rehab facility about 5 weeks ago. Review of Systems Ten Systems: 10 systems reviewed and negative Constitutional: reports: Fatigue. 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 : Renal insuffiency, Kidney stones HEENT: Glaucoma Musculoskeletal: Osteoarthritis Derm: None - Past Surgical History Past Surgical History: Yes /HORSE RACETRACK MANAGER: Oophrectomy - Present Medications Home Medications: Ambulatory Orders Medication Instructions Recorded Confirmed Glucosam/Chondr-Msm6/Manganese 2 each PO DAILY 04/26/15 02/24/20 [Glucosamine-Chondroitin Sftgl] Multivitamin [Multivitamins] 1 each PO DAILY 04/26/15 02/24/20 Atorvastatin Calcium 20 mg PO DAILY PM 12/20/19 02/24/20 Doxylamine Succinate [Unisom] 25 mg PO DAILY PM 12/20/19 02/24/20 Latanoprost 1 drops OP DAILY PM 12/20/19 02/24/20 Brimonidine 0.2% Ophth Drops 1 drops EACHEYE DAILY 12/21/19 02/24/20 [Alphagan P 0.2% Ophth Drops] Carvedilol [Coreg] 25 mg PO BID 12/21/19 02/24/20 Dorzolamide HCl/Timolol Maleat 1 drops EACHEYE BID 12/21/19 02/24/20 [Dorzolamide-Timolol Eye Drops] Furosemide 80 mg PO DAILY 12/21/19 02/24/20 Ferrous Fumarate 324 mg PO DAILY #30 tablet 12/29/19 02/24/20 Insulin Aspart [NovoLOG] 10 unit SUBQ TIDWM #5 pen 12/29/19 02/24/20 Pregabalin [Lyrica] 50 mg PO BID #120 capsule 12/29/19 02/24/20 Acetaminophen [Tylenol] 650 mg PO BID PRN 02/24/20 02/24/20 Benzonatate [Tessalon] 100 mg PO Q8HR PRN 02/24/20 02/24/20 Cefdinir 300 mg PO BID #20 capsule 02/24/20 Cholecalciferol (Vitamin D3) 2,000 unit PO DAILY 02/24/20 02/24/20 [Vitamin D3] Ibuprofen [Motrin] 400 mg PO Q6H 02/24/20 02/24/20 Insulin Glargine [Lantus Solostar] 50 unit SUBQ DAILY 02/24/20 02/24/20 oxyCODONE [Roxicodone] 5 mg PO Q4HR PRN 02/24/20 02/24/20 predniSONE [Deltasone] 5 mg PO DAILY 02/24/20 02/24/20 - Allergies Allergies/Adverse Reactions: Allergies Allergy/AdvReac Type Severity Reaction Status Date / Time No Known Drug Allergies Allergy Verified 02/24/20 12:50 - Social History Does the pt smoke?: No Smoking Status: Never smoker Does the pt drink ETOH?: No Does the pt have substance abuse?: No - Immunizations Immunizations are current?: Yes - POLST Patient has POLST: No PD ED PE NORMAL - Vitals Vital signs reviewed: Yes - General General: Alert and oriented X 3, No acute distress - HEENT HEENT: PERRL, EOMI - Neck Neck: Supple, no meningeal sign, No bony TTP - Cardiac Cardiac: RRR, No murmur - Respiratory Respiratory: No respiratory distress, Clear bilaterally - Abdomen Abdomen: Normal bowel sounds, Soft, Non tender - Back Back: No CVA TTP, No spinal TTP - Derm Derm: Normal color, Warm and dry - Extremities Extremities: Other (Decent strength in flexion extension at the ankles bilaterally) - Neuro Neuro: Alert and oriented X 3, No motor deficit, No sensory deficit, Normal speech Results - Vitals Vitals: Vital Signs - 24 hr 02/24/20 02/24/20 02/24/20 12:50 13:30 15:00 Temperature 37.2 C 36.9 C 36.2 C L Heart Rate 88 84 90 Respiratory 23 14 16 Rate Blood Pressure 123/66 123/66 122/31 L O2 Saturation 100 100 99 02/24/20 02/24/20 02/24/20 16:05 17:48 20:03 Temperature 36.2 C L 36.4 C L 36.8 C Heart Rate 80 92 89 Respiratory 14 14 18 Rate Blood Pressure 118/52 L 132/47 H 160/76 H O2 Saturation 97 97 100 Oxygen O2 Source Room air - EKG (time done) 1246 Rate: Rate (enter#) (82) Rhythm: NSR [place]: Normal Intervals: Normal [place] QRS: LVH Ischemia: No: ST elevation c/w ischemia Computer interpretation: Agree with computer - Labs Labs: Laboratory Tests 02/24/20 02/24/20 02/24/20 13:30 13:30 19:55 WBC 19.1 H RBC 4.51 Hgb 11.8 L Hct 38.3 MCV 84.9 MCH 26.2 L MCHC 30.8 L RDW 21.5 H Plt Count 443 MPV 8.9 Neut # (Auto) 15.1 H Lymph # (Auto) 1.9 [place] # (Auto) 1.3 H Eos # (Auto) 0.3 Baso # (Auto) 0.1 Absolute Nucleated RBC 0.00 Nucleated RBC % 0.0 Manual Slide Review Indicated RBC Morph Micro Appear 4+ ANISOCYTOSIS Sodium 139 Potassium 3.9 Chloride 97 L Carbon Dioxide 26 Anion Gap 16.0 H BUN 62 H Creatinine 1.4 H Estimated GFR (MDRD) 38 L Glucose 116 H Calcium 9.1 Magnesium 1.9 Total Bilirubin 1.5 H AST 19 ALT 21 Alkaline Phosphatase 84 Total Protein 7.4 Albumin 3.3 Globulin 4.1 Albumin/Globulin Ratio 0.8 L Lipase 20 L Urine Color YELLOW Urine Clarity HAZY Urine pH 7.5 Ur Specific [place] 1.015 Urine Protein TRACE Urine Glucose (UA) NEGATIVE Urine Ketones TRACE Urine Occult Blood TRACE-LYSE Urine Nitrite NEGATIVE Urine Bilirubin NEGATIVE Urine Urobilinogen 0.2 (NORMAL) Ur Leukocyte Esterase LARGE H Urine RBC 6-10 H Urine WBC >25 H Urine WBC Clumps PRESENT Ur Epithelial Cells FEW Transitional Ur Squamous Epith Cells RARE Squamous Urine Bacteria Many H Ur Microscopic Review INDICATED Urine Culture Comments INDICATED PD MEDICAL DECISION MAKING - ED course ED course: 64-year-old woman presents by ambulance after several falls at home over the last day. [facility] but because of some equipment issues and presumed deconditioning just really was not able to tolerate being at home where she does not have any help. Social work was consulted and they called the [facility] to see if she could go back. The patient had a coronavirus at the [facility] and is now asymptomatic but because there is an outbreak of coronavirus at said [facility] they cannot accept any admissions per the department of health despite the fact this patient just left there yesterday. She will have to board in the emergency department until that can be straightened out which will likely not be until Wednesday. RN reported to me that her urine was foul-smelling and cloudy. I have vacillated on whether or not to order urinalysis given her lack of specific UTI complaints, that said with her elevated white count it did seem reasonable and she did have a positive urinalysis and this is treated with oral cephalosporin. Departure - Departure Clinical Impression: Weakness, Insulin dependent diabetes mellitus CRI (chronic renal insufficiency) Qualifiers: Chronic kidney disease stage: unspecified stage Qualified Code(s): N18.9 - Chronic kidney disease, unspecified UTI (urinary tract infection) Qualifiers: Urinary tract infection type: site unspecified Hematuria presence: without hematuria Qualified Code(s): N39.0 - Urinary tract infection, site not specified Condition: Stable Record reviewed to determine appropriate education?: Yes Prescriptions: Cefdinir 300 mg PO BID #20 capsule
[2020-02-24 13:43] LABS: BASOPHILS # (AUTO) 0.1 10^3/uL (0.0-0.1); BASOPHILS % (AUTO) 0.6 %; EOSINOPHILS # (AUTO) 0.3 10^3/uL (0.0-0.7); EOSINOPHILS % (AUTO) 1.5 %; HGB - HEMOGLOBIN 11.8 g/dL (12.0-16.0); LYMPHOCYTES # (AUTO) 1.9 10^3/uL (1.5-3.5); LYMPHOCYTES % (AUTO) 9.8 %; MEAN CORPUSCULAR HEMOGLOBIN 26.2 pg (27.0-31.0); MEAN CORPUSCULAR HGB CONC 30.8 g/dL (32.0-36.0); MEAN CORPUSCULAR VOLUME 84.9 fL (81.0-99.0); MEAN PLATELET VOLUME 8.9 fL (7.9-10.8); MONOCYTES # (AUTO) 1.3 10^3/uL (0.0-1.0); MONOCYTES % (AUTO) 6.8 %; NEUTROPHILS # (AUTO) 15.1 10^3/uL (1.5-6.6); NEUTROPHILS % (AUTO) 79.1 %; PLT - PLATELET COUNT 443 10^3/uL (130-450); RED BLOOD COUNT 4.51 10^6/uL (4.20-5.40); RED CELL DISTRIBUTION WIDTH 21.5 % (12.0-15.0); WHITE BLOOD COUNT 19.1 x10^3/uL (4.8-10.8)
[2020-02-24 13:53] LABS: ALBUMIN 3.3 g/dL (3.2-5.5); ALBUMIN/GLOBULIN RATIO 0.8 (1.0-2.2); BILIRUBIN,TOTAL 1.5 mg/dL (0.2-1.0); CALCIUM 9.1 mg/dL (8.5-10.3); CREATININE 1.4 mg/dL (0.4-1.0); MAGNESIUM 1.9 mg/dL (1.7-2.8); TOTAL PROTEIN 7.4 g/dL (6.7-8.2)
[2020-02-24 14:00] LABS: RBC MORPHOLOGY (MULTIPLE) 4+ ANISOCYTOSIS (NORMAL)
[2020-02-24 20:05] LABS: BILIRUBIN,URINE NEGATIVE (NEGATIVE); GLUCOSE, URINE (UA) NEGATIVE (NEGATIVE); KETONES,URINE (UA) TRACE mg/dL (NEGATIVE); LEUKOCYTE ESTERASE, URINE LARGE (NEGATIVE); NITRITE,URINE NEGATIVE (NEGATIVE); OCCULT BLOOD,URINE TRACE-LYSE (NEGATIVE); PH,URINE 7.5 PH (5.0-7.5); PROTEIN,URINE TRACE mg/dL (NEGATIVE); UROBILINOGEN,URINE 0.2 (NORMAL) E.U./dL (NORMAL)
[2020-02-24 20:06] LABS: CLARITY,URINE HAZY (CLEAR)
[2020-02-24 20:19] LABS: BACTERIA,URINE Many /HPF (None Seen); EPITHELIAL CELLS,UR FEW Transitional /HPF (<= Few); SQUAMOUS EPITHELIAL CELL,UR RARE Squamous (<= Few); WBC CLUMPS,URINE PRESENT
[2020-02-24] MEDS: ATORVASTATIN 10 MG TABLET PO SCH (20:58)
[2020-02-24] MEDS: carvediloL 12.5 MG TABLET PO SCH (20:59)
[2020-02-24] MEDS: PREGABALIN 25 MG CAPSULE PO SCH (20:59)
[2020-02-24] MEDS: LATANOPROST 0.005% OPHTH DROPS EACHEYE SCH (21:01)
[2020-02-24] MEDS: DORZOLAMIDE/TIMOLOL OPHTH DROPS EACHEYE SCH (21:06)
[2020-02-24] MEDS: BRIMONIDINE 0.2% OPHTH DROPS 5 ML EACHEYE SCH (22:13)
[2020-02-24] MEDS: INSULIN ASPART 300 UNIT/3 ML PEN SUBQ SCH (22:17)
[2020-02-25] MEDS: oxyCODONE 5 MG TABLET PO PRN ×3 (03:40→21:00)
[2020-02-25] MEDS: BRIMONIDINE 0.2% OPHTH DROPS 5 ML EACHEYE SCH ×3 (06:14→22:00)
[2020-02-25] MEDS: INSULIN ASPART 300 UNIT/3 ML PEN SUBQ SCH ×3 (06:16→22:03)
[2020-02-25] MEDS: FUROSEMIDE 20 MG TABLET PO SCH (08:48)
[2020-02-25] MEDS: PREGABALIN 25 MG CAPSULE PO SCH ×2 (08:49→21:00)
[2020-02-25] MEDS: carvediloL 12.5 MG TABLET PO SCH ×2 (08:49→21:00)
[2020-02-25] MEDS: predniSONE 5 MG TABLET PO SCH (08:50)
[2020-02-25] MEDS: INSULIN GLARGINE 300 UNIT/3 ML PEN SUBQ SCH (08:52)
[2020-02-25] MEDS: DORZOLAMIDE/TIMOLOL OPHTH DROPS EACHEYE SCH ×2 (08:55→21:03)
--- NOTE | 2020-02-25 17:08 | ED Physician Documentation ---
ED Addendum - Addendum Addendum: 02/25/20 17:08 She was seen and examined at bedside. Her knees are bothering her but otherwise has no specific complaints. Note made that her blood sugars were running kind of high, she says that the sliding scale might help and this is ordered. Otherwise she is stable and pending placement.
[2020-02-25] MEDS: DOXYLAMINE 25 MG TABLET PO PRN (21:01)
[2020-02-25] MEDS: ATORVASTATIN 10 MG TABLET PO SCH (21:01)
[2020-02-25] MEDS: LATANOPROST 0.005% OPHTH DROPS EACHEYE SCH (21:04)
[2020-02-26] MEDS: BRIMONIDINE 0.2% OPHTH DROPS 5 ML EACHEYE SCH ×2 (06:02→14:58)
[2020-02-26] MEDS: INSULIN ASPART 300 UNIT/3 ML PEN SUBQ SCH ×2 (06:05→14:52)
[2020-02-26 07:53] LABS: BASOPHILS # (AUTO) 0.1 10^3/uL (0.0-0.1); BASOPHILS % (AUTO) 0.4 %; EOSINOPHILS # (AUTO) 0.1 10^3/uL (0.0-0.7); EOSINOPHILS % (AUTO) 0.6 %; HGB - HEMOGLOBIN 9.7 g/dL (12.0-16.0); LYMPHOCYTES # (AUTO) 1.5 10^3/uL (1.5-3.5); LYMPHOCYTES % (AUTO) 9.5 %; MEAN CORPUSCULAR HEMOGLOBIN 26.3 pg (27.0-31.0); MEAN CORPUSCULAR HGB CONC 30.3 g/dL (32.0-36.0); MEAN CORPUSCULAR VOLUME 86.7 fL (81.0-99.0); MONOCYTES # (AUTO) 1.3 10^3/uL (0.0-1.0); MONOCYTES % (AUTO) 7.9 %; PLT - PLATELET COUNT 371 10^3/uL (130-450); RED BLOOD COUNT 3.69 10^6/uL (4.20-5.40); RED CELL DISTRIBUTION WIDTH 21.9 % (12.0-15.0); WHITE BLOOD COUNT 16.2 x10^3/uL (4.8-10.8)
[2020-02-26 08:03] LABS: ALBUMIN 2.6 g/dL (3.2-5.5); ALBUMIN/GLOBULIN RATIO 0.7 (1.0-2.2); BILIRUBIN,TOTAL 1.6 mg/dL (0.2-1.0); CALCIUM 8.5 mg/dL (8.5-10.3); CREATININE 1.7 mg/dL (0.4-1.0); TOTAL PROTEIN 6.5 g/dL (6.7-8.2)
[2020-02-26 08:32] LABS: PLATELET ESTIMATE, MANUAL NORMAL (130-450,000) (NORMAL); PLATELET MORPHOLOGY NORMAL APPEARANCE (NORMAL)
[2020-02-26] MEDS: INSULIN GLARGINE 300 UNIT/3 ML PEN SUBQ SCH (09:13)
[2020-02-26] MEDS: PREGABALIN 25 MG CAPSULE PO SCH (09:13)
[2020-02-26] MEDS: FUROSEMIDE 20 MG TABLET PO SCH (09:13)
[2020-02-26] MEDS: carvediloL 12.5 MG TABLET PO SCH (09:13)
[2020-02-26] MEDS: DOXYLAMINE 25 MG TABLET PO PRN (09:14)
[2020-02-26] MEDS: predniSONE 5 MG TABLET PO SCH (09:14)
[2020-02-26] MEDS: DORZOLAMIDE/TIMOLOL OPHTH DROPS EACHEYE SCH (09:15)
[2020-02-26 09:27] LABS: C. PNEUMONIAE- RESP PCR PANEL NOT DETECTED
[2020-02-26] MEDS: oxyCODONE 5 MG TABLET PO PRN (12:46)
--- NOTE | 2020-02-26 13:19 | ED Physician Documentation ---
ED Addendum - Addendum Addendum: 02/26/20 13:18 Is accepted back to [facility] in [place] today. I filled out PCS paperwork. She did have a low-grade fever today and Dr. Barnes ordered blood cultures. They also requested a repeat Covid test even though we already knew she had Covid and this is not surprisingly positive. I will write her prescription for the remainder of her antibiotics for the UTI.
[2020-02-26 14:15] VITALS: BP 132/68
== END 2020-02-26 15:54 | disposition home or self-care (01) ==
LOC: EDUNIT# → ED 12:41
DX: R53.1 Weakness (principal); R29.6 Repeated falls; U07.1 COVID-19; N39.0 Urinary tract infection, site not specified; I12.9 Hypertensive chronic kidney disease with stage 1 through stage 4 chronic kidney disease, or unspecified chronic kidney disease; E11.22 Type 2 diabetes mellitus with diabetic chronic kidney disease; N18.9 Chronic kidney disease, unspecified; E11.42 Type 2 diabetes mellitus with diabetic polyneuropathy; Z79.4 Long term (current) use of insulin
CPT/HCPCS: 36415; 80053; 81001; 83605; 83690; 83735; 85025; 87040; 87077; 87086; 87181; 87631; 93005; 99283; 99285; A9270; J1815; J7512; 0202U; 81003

== ENCOUNTER 2020-02-26 15:07 | Outpatient (CLI) | payer MEDICARE, OTHER | END 2020-02-26 15:08 | LOC: EMS 15:07 | PROVIDERS: ATTEND Surgery | DX: R53.1 Weakness (principal); U07.1 COVID-19 | CPT/HCPCS: A0425; A0428 ==

== ENCOUNTER 2020-11-29 12:53 | Outpatient (CLI) | payer MEDICARE, OTHER ==
[2020-11-29 13:54] VITALS: BP 107/53
--- NOTE | 2020-11-29 13:55 | SLEEP CARE CONSULTATION ---
Information from patient questionnaire entered by Osiris Monaco. I have reviewed and concur with the information entered by Osiris Monaco. This document represents the service I personally performed and the decisions made by me, Norma Zheng ARNP. History of Present Illness Service Date and Time: 11/29/2020 1253 Reason for Visit: New patient, Previously diagnosed sleep apnea (very severe - AHI - 43.4), Re-establish care (Last seen 03/2011) Chief Complaint: reports: Unrefreshed sleep, Snoring, Observed pauses in breathing, Fatigue, Frequent awakenings at night Date of Onset: 6 weeks increased difficulty sleeping Usual bedtime: 12 am Time it takes to fall asleep: about 2 hours Snores at night: Yes Observed to quit breathing while asleep: Yes Number of times waking at night: 4-6 Reasons for waking at night: reports: Other (suspect seizures) Toss, Turn, or Twitch while sleeping: No Recalls having dreams: Yes Usually gets out of bed at: 8 am Feels refreshed in the morning: No Morning headache: Yes (often, resolves around noon) Sleepy or fatigued during the day: Yes Ever fallen asleep while driving: No Takes day naps: No Dreams during day naps: No Prior sleep studies: Yes Year and Where: 2011 - [facility] Type of Sleep Study: Polysomnography Additional HPI information: BOBBY GODOY was previously diagnosed to have severe, AHI 43.2, obstructive sleep apnea-hypopnea syndrome in 2011 and comes in today to re-establish care. She had the PSG but due to financial situation she was unable to get a CPAP. She was given one to use after some bariatric surgery. She never used it and has not been using a CPAP. She returns with complaints of frequent night awakening, observed pauses in breathing, snoring and unrefreshed sleep. She states in the last 16-17 days she is having some congestion on the right side of head. She has some episodes where she sees colors/patterns and will wake her up and she is incontinent. She has had heart palpitations for many years about 2 times a month that wake her out of sleep. Her PCP has referred her here for testing. They are suspecting that she is having seizures. - Parasomnia Symptoms Ever been unable to move upon waking from sleep: No Walks in sleep: No Talks in sleep: No Ever acted out dreams in sleep: No Ever felt weak in the knees when startled or emotional: No Bothered by creepy, crawly, restless sensations in legs: No Subjective Initial [place] Sleepiness Scale score: 6 (in 2012) Current [place] Sleepiness Scale score: 4 Past Medical History Past Medical History: reports: Hypertension, Diabetes, Arthritis, Other (reduce kidney function) Social History The patient's occupation is a Retired. Patient is Single and lives in [place]. Have you smoked in the past 12 months: No Alcohol use: No Caffeine use: Yes Caffeine amount and frequency: 12 oz 3 times a day Family History Family history of sleep disordered breathing: No Allergies and Home Medications Drug allergies reviewed: Yes (NKDA) Home medication list reviewed: Yes Allergy and home medication list: Atorvastatin Lasix Insulin Lantus Insulin Novolog Ferrous Coreg Allopurinol Equate version Excedrin, prn Review of Systems Cardiovascular: reports: high blood pressure, leg or foot swelling Ear/Nose/Throat: denies: tonsillectomy Musculoskeletal: reports: joint pain, mobility problems Physical Exam Blood Pressure: 107/53 Cuff size: wrist Heart Rate: 75 O2 Saturation: 94 Height: 5 ft 5 in Weight: 321 lb Body Mass Index: 53.4 BMI Classification: Morbidly Obese Neck circumference: 18.5 (inches) Mouth and throat: narrow oropharynx Soft palate: long Hard palate: normal Uvula: normal Uvula visualization: 25% Mallampati Class III Tongue: enlarged in size with teeth pinto on lateral edges Tonsils: 1+ Heart: regular rate and rhythm, murmur Lungs: clear bilaterally Impression and Plan 1. Suspected Obstructive Sleep Apnea-Hypopnea Syndrome, as previously diagnosed and as suggested by a history of loud and irregular snoring, observed cessation of breath while asleep, morning headache, frequent awakening during the night, and unrefreshed sleep. Patient will need a new study to qualify her for CPAP therapy. Due to need for EEG monitoring because of possible seizure activity during her study I recommend proceeding to polysomnography to confirm the diagnosis and to assess severity. If the patient has significant sleep disordered breathing, a manual CPAP titration study will also be performed to f ind the optimal treatment pressure. I informed the patient of what the sleep studies involve and after some discussion, obtained agreement to proceed. The pathophysiology of obstructive sleep apnea-hypopnea syndrome was discussed with the patient and health risks of cardiovascular and cerebrovascular disease if not treated. Risks of drowsy driving discussed in detail and patient advised to avoid long distance driving and to cable puller at the first sign of drowsiness. Patient agreed to plan. * Schedule polysomnography +- manual CPAP titration study and return in 1-2 weeks after the study to discuss result and initiate therapy. * Avoid long distance driving or driving when feeling sleepy. * Avoid alcohol, sedative and muscle relaxant around bedtime. * Attempt to lose weight. * Review instructions provided by trained office staff on how to prepare for the sleep study. * Return for follow-up after sleep study completed. Counseling Topics: Weight loss health impact Visit Type: In Office Time Spent with Patient (minutes): 35 Provider Statement: I spent 100% of the Face to Face Visit with the patient with greater than 50% spent counseling the patient and coordination of care.
== END 2020-11-29 12:54 | disposition home or self-care (01) ==
LOC: SC 12:53
PROVIDERS: ATTEND Nurse Practitioner Family
DX: G47.33 Obstructive sleep apnea (adult) (pediatric) (principal); E66.01 Morbid (severe) obesity due to excess calories; Z68.43 Body mass index [BMI] 50.0-59.9, adult
CPT/HCPCS: 99203; G0463; 99212

== ENCOUNTER 2020-12-04 20:03 | Outpatient (CLI) | payer MEDICARE, OTHER | END 2020-12-04 20:04 | disposition E | LOC: EMS 20:03 ==